=== PATIENT | male | born 1945 | race Caucasian/White ===

== ENCOUNTER 2022-02-21 19:51 | Observation (INO) ==
[2022-02-21] MEDS ORDERED: ONDANSETRON INJ 2 MG/ML 2 ML VIAL IV STA (20:09)
[2022-02-21] MEDS ORDERED: SODIUM CHLORIDE 0.9% 1000ML 500 ML IV ONE (20:09)
--- NOTE | 2022-02-21 20:18 | Emergency Department Note ---
History of Present Illness General Chief complaint: Fall Stated complaint: FALL, HIT HEAD, VOMITING Time Seen by Provider: 02/21/22 19:59 Source: patient and family ( who is at the bedside) Mode of arrival: ambulatory Limitations: no limitations History of Present Illness This patient comes in after having weakness and a fall. He has been having issues with weakness since he started chemo in August. They recently changed his agents and he has been doing a little bit better has had less nausea that Zofran seems to be doing better. He had recent PET scans which showed most aspects were improving. He was extremely fatigued all day and just was not feeling well he went outside and while walking in he fell on the stairs and hit his head this happened about an hour and a half ago he vomited afterwards. Denies a headache or neck pain denies injury to the chest abdomen or pelvis or back. No other injuries. His weakness has been diffuse and nonfocal. He has had chronic shortness of breath which is unchanged no blood or melena stool his last chemo was on Thursday he does have a port. No urinary symptoms. Home Medications Medication Instructions Recorded Confirmed Type metoprolol tartrate 25 mg tablet 25 mg PO BID tab 11/20/21 02/21/22 History ondansetron HCl 8 mg tablet 8 mg PO Q8H PRN 11/20/21 02/21/22 History oxycodone 5 mg tablet 5 mg PO .Q4-6H PRN tab 11/20/21 02/21/22 History bupropion HCl 150 mg 24 hr tablet, 150 mg PO QAM 11/26/21 02/21/22 History extended release enalapril maleate 5 mg tablet 5 mg PO BID 12/04/21 02/21/22 History (Vasotec) loperamide 2 mg capsule (Imodium 2 mg PO Q6H PRN 12/09/21 02/21/22 History A-D) atorvastatin 80 mg tablet 80 mg PO DAILY 02/21/22 02/21/22 History dexamethasone 4 mg tablet See Rx Instructions .ROUTE .COMPLEX 02/21/22 02/21/22 History escitalopram oxalate 10 mg tablet 10 mg PO DAILY 02/21/22 02/21/22 History metformin 1,000 mg tablet 1,000 mg PO DAILY 02/21/22 02/21/22 History Allergies Allergy/AdvReac Type Severity Reaction Status Date / Time No Known Drug Allergies Allergy Unknown Verified 02/21/22 20:40 Past Med/Surg History Medical History Actinic keratosis Adenomatous polyp Angioma CAD (coronary artery disease) s/p CABG x 3 approx 2014 in [place], does not follow with cardiology at this time per PAT RN records Depression Diabetes Erectile dysfunction Fatigue GERD (gastroesophageal reflux disease) Hearing difficulty History of nonmelanoma skin cancer Hyperlipidemia Hypertension Lentigines Metastatic squamous cell carcinoma Myocardial infarction HX 2014 Neoplasm of uncertain behavior of skin Seborrheic keratoses Smoker Stage 3 chronic kidney disease Stroke HX 2014 Surgical History H/O heart surgery Triple bypass with 3 stents- [facility] [place] -approx 2014 History of colonoscopy Port-A-Cath in place (12/04/21) Insertion of Access Port in Left Jugular Vein with Fluoroscopy(Left) - Kelechi Suarez DO, FACS 12/04/2021 S/P wisdom tooth extraction Family History Brother Cardiac arrest Father , 88yo Myocardial infarction Mother , 90yo Myocardial infarction Hypertension Daughter Cancer brain Brother No problems noted. Son No problems noted. Son No problems noted. Daughter Brain cancer Denies family history of Ovarian cancer Prostate cancer Breast cancer Colorectal cancer Social History Smoking Status: Never smoker Tobacco Type: Cigarettes Age Started Using Tobacco: 15; packs per day: 1; Years Smoked: 61; Cigarettes Per Day: 10 CIGS A DAY; Second Hand Exposure: No; Hx Alcohol Use: No Hx Substance Use: No Preferred Language: Vietnamese Communication Ability: Effective Visual Impairment: No Limitations Hearing Ability: Hard of Hearing Foot Tender Required: No Beliefs That Will Affect Care: None marital status: Current Living Situation: Spouse Current Living Situation Comment: Lives with his girlfriend? current occupational status: retired current occupation: Worked in [employer] How many Children do You have: 3 Other Information That Helps Us Care for You: No Feels Safe at Home: Yes Safety Concerns: Feels Safe At This Time Childhood Exposure to Second-Hand Smoke: Yes caffeine: Yes during the past year weight has: increased > 10 lbs Dental Care, Regularly: No Physical Activity Frequency: Does not Exercise Seatbelt Use: always Sunscreen Use: Yes Assistive Devices: Cane, Glasses and Walker Review of Systems A total of 10 systems reviewed and were otherwise negative Physical Exam Vital Signs Vital Signs - 24 hr 02/21/22 19:53 02/21/22 20:25 02/21/22 20:44 Temperature 36.6 C Temperature Source Temporal Artery Scan Pulse Rate 75 Pulse Rate [Apical] 90 Pulse Rhythm Regular Pulse Strength Normal Respiratory Rate 18 14 Respiratory Effort / Characteristics Non-Labored Spontaneous Respiratory Depth Normal Respiratory Pattern Regular Blood Pressure 90/55 L Blood Pressure [Right Arm] 112/65 Blood Pressure Mean 66 Blood Pressure Mean [Right Arm] 80 Blood Pressure Position Sitting Pulse Oximetry 94 97 96 Oxygen Delivery Method Room Air Room Air Room Air Sepsis Recent Fever Within 48 Hours No Sepsis New/Unexplained Change in Mental Status N/A Sepsis Action Taken by Nursing No Action Required 02/21/22 20:45 02/21/22 21:09 02/21/22 21:53 Temperature Temperature Source Pulse Rate Pulse Rate [Apical] 85 80 Pulse Rhythm Pulse Strength Respiratory Rate 17 18 Respiratory Effort / Characteristics Respiratory Depth Respiratory Pattern Blood Pressure Blood Pressure [Right Arm] 133/66 150/74 H Blood Pressure Mean Blood Pressure Mean [Right Arm] 88 99 Blood Pressure Position Pulse Oximetry 96 99 97 Oxygen Delivery Method Room Air Room Air Room Air Sepsis Recent Fever Within 48 Hours Sepsis New/Unexplained Change in Mental Status Sepsis Action Taken by Nursing General: Well developed well nourished chronically ill-appearing older male who appears in no acute distress, breathing comfortably on room air. Normal speech. No external signs of trauma. HEENT: Normal cephalic atraumatic. Pupils are equal round and reactive to light. Extraocular movements are intact. Oropharynx is pink with moist mucous membranes. No swelling of the mouth lips or tongue. Neck: Supple with a midline trachea. No meningeal signs or stiffness, no JVD or bruits. No Stridor. Chest: Clear to auscultation bilaterally. No wheezes or rhonchi. No increased work of breathing. Scar from previous surgery on right chest. Heart: Regular rate and rhythm without murmurs or gallops. Abdomen: Soft nontender, nondistended without rebound guarding or rigidity. Extremities: No cyanosis clubbing or edema. No calf tenderness or assymetry Spine/Back. Non tender to palpation. No CVA tenderness Skin: Good turgor without rashes. Neurologic exam: Cranial nerves two through 12 are intact. Motor and sensation are intact and symmetrical throughout. Course Administered Medications Lactated Ringer's (Lr) 1,000 mls @ 80 mls/hr IV .[id number] ROCKY Stop: 02/23/22 01:24 Last Admin: 02/22/22 01:13 Dose: 80 mls/hr Documented by: [id number] Discontinued Medications Sodium Chloride (Nss 1000ml) 500 mls @ 999 mls/hr IV .Q31M ONE Stop: 02/21/22 20:39 Last Infusion: 02/21/22 21:10 Dose: 0 mls/hr Documented by: [id number] Admin: 02/21/22 20:23 Dose: 999 mls/hr Documented by: [id number] Sodium Chloride (Nss) 500 mls @ 999 mls/hr IV .Q31M ONE Stop: 02/21/22 21:53 Last Infusion: 02/21/22 22:23 Dose: 0 mls/hr Documented by: [id number] Admin: 02/21/22 21:51 Dose: 999 mls/hr Documented by: [id number] Magnesium Sulfate/Dextrose (Magnesium Sulfate / D5w) 1 gm in 100 mls @ 100 mls/hr IV NOW STA Stop: 02/21/22 23:03 Last Infusion: 02/21/22 23:22 Dose: 0 mls/hr Documented by: [id number] Admin: 02/21/22 22:11 Dose: 100 mls/hr Documented by: [id number] Cefepime HCl (Maxipime) 2,000 mg in 20 mls @ 5 mls/min IV NOW STA; Protocol Stop: 02/21/22 22:15 Last Admin: 02/21/22 22:20 Dose: 5 mls/min Documented by: [id number] Ondansetron HCl (Ondansetron Inj 2 Mg/Ml 2 Ml Vial) 4 mg IV NOW STA Stop: 02/21/22 20:10 Last Admin: 02/21/22 20:22 Dose: 4 mg Documented by: [id number] Medical Decision Making Differential Diagnosis Head injury, intracranial hemorrhage, cervical spine injury, traumatic injuries, dehydration, electrolyte or metabolic abnormality, cancer related complication, sepsis, cardiac disease Medical Records Attestation: I reviewed the patient's medical records. Home Medications Current Medication List: was personally reviewed by me Laboratory Data Attestation: I reviewed the patient's lab results. Result diagrams: 02/21/22 20:31 02/21/22 20:31 Lab Results 02/21/22 02/21/22 02/21/22 Range/Units 20:30 20:31 20:31 WBC 2.55 L (4.8-10.8) K/uL RBC 2.88 L (4.7-6.1) M/uL Hgb 9.4 L (14.0-18.0) g/dL Hct 28.3 L (42-52) % MCV 98.3 (80-100) fL MCH 32.6 (25-34) pg MCHC 33.2 (32-36) g/dL RDW Std Deviation 72.9 H (36.4-46.3) fL RDW Coeff of Miriam 20.2 H (11.5-14.5) % Plt Count 104 L (130-400) K/uL MPV 10.3 (7.4-10.4) fL Immature Gran % (Auto) 0.4 % Neut % (Auto) 65.9 % Lymph % (Auto) 23.5 % Mccone % (Auto) 9.0 % Eos % (Auto) 1.2 % Baso % (Auto) 0.0 % Neut # (Auto) 1.68 (1.4-6.5) K/uL Lymph # (Auto) 0.60 L (1.2-3.4) K/uL Mccone # (Auto) 0.23 (0.11-0.59) K/uL Eos # (Auto) 0.03 (0-0.5) K/uL Baso # (Auto) 0.00 (0-0.2) K/uL Immature Gran # (Auto) 0.01 (0.00-0.02) K/uL Anisocytosis Present Tear Drop Cells 1+ Ovalocytes 1+ PT 10.9 (9.0-12.0) Seconds INR 1.0 (0.9-1.1) APTT 25.2 (21.0-31.0) Seconds PTT Ratio 0.9 Sodium (136-145) mmol/L Potassium (3.5-5.1) mmol/L Chloride (98-107) mmol/L Carbon Dioxide (21-32) mmol/L Anion Gap (3-11) BUN (6-23) mg/dl Creatinine (0.6-1.4) mg/dl Est Cr Clr Drug Dosing ml/min Est GFR ( Amer) ml/min Est GFR (Non-Af Amer) ml/min BUN/Creatinine Ratio (10-20) Glucose (70-99(Fasting)) mg/dl Lactate (0.4-2.0) mmol/L Calcium (8.5-10.1) mg/dl Magnesium (1.7-2.4) mg/dl Total Bilirubin (0.2-1.0) mg/dl AST (13-39) U/L ALT (7-52) U/L Alkaline Phosphatase (34-104) U/L Troponin I High Sens (0-20) pg/ml Total Protein (6.0-8.3) gm/dl Albumin (3.4-5.0) gm/dl Globulin (2.5-4.0) gm/dl Albumin/Globulin Ratio (0.9-2) SARS-CoV-2, RNA, NAAT NEGATIVE (NEGATIVE) 02/21/22 02/21/22 02/21/22 Range/Units 20:31 20:31 20:31 WBC (4.8-10.8) K/uL RBC (4.7-6.1) M/uL Hgb (14.0-18.0) g/dL Hct (42-52) % MCV (80-100) fL MCH (25-34) pg MCHC (32-36) g/dL RDW Std Deviation (36.4-46.3) fL RDW Coeff of Miriam (11.5-14.5) % Plt Count (130-400) K/uL MPV (7.4-10.4) fL Immature Gran % (Auto) % Neut % (Auto) % Lymph % (Auto) % Mccone % (Auto) % Eos % (Auto) % Baso % (Auto) % Neut # (Auto) (1.4-6.5) K/uL Lymph # (Auto) (1.2-3.4) K/uL Mccone # (Auto) (0.11-0.59) K/uL Eos # (Auto) (0-0.5) K/uL Baso # (Auto) (0-0.2) K/uL Immature Gran # (Auto) (0.00-0.02) K/uL Anisocytosis Tear Drop Cells Ovalocytes PT (9.0-12.0) Seconds INR (0.9-1.1) APTT (21.0-31.0) Seconds PTT Ratio Sodium 133 L (136-145) mmol/L Potassium 3.9 (3.5-5.1) mmol/L Chloride 99 (98-107) mmol/L Carbon Dioxide 26 (21-32) mmol/L Anion Gap 8 (3-11) BUN 20 (6-23) mg/dl Creatinine 1.04 (0.6-1.4) mg/dl Est Cr Clr Drug Dosing 70.0 ml/min Est GFR ( Amer) 79.9 ml/min Est GFR (Non-Af Amer) 68.9 ml/min BUN/Creatinine Ratio 19.2 (10-20) Glucose 110 H (70-99(Fasting)) mg/dl Lactate 3.1 H* (0.4-2.0) mmol/L Calcium 8.9 (8.5-10.1) mg/dl Magnesium 1.5 L (1.7-2.4) mg/dl Total Bilirubin 0.7 (0.2-1.0) mg/dl AST 20 (13-39) U/L ALT 26 (7-52) U/L Alkaline Phosphatase 110 H (34-104) U/L Troponin I High Sens 5.2 (0-20) pg/ml Total Protein 5.9 L (6.0-8.3) gm/dl Albumin 3.5 (3.4-5.0) gm/dl Globulin 2.4 L (2.5-4.0) gm/dl Albumin/Globulin Ratio 1.5 (0.9-2) SARS-CoV-2, RNA, NAAT (NEGATIVE) 02/21/22 Range/Units 22:15 WBC (4.8-10.8) K/uL RBC (4.7-6.1) M/uL Hgb (14.0-18.0) g/dL Hct (42-52) % MCV (80-100) fL MCH (25-34) pg MCHC (32-36) g/dL RDW Std Deviation (36.4-46.3) fL RDW Coeff of Miriam (11.5-14.5) % Plt Count (130-400) K/uL MPV (7.4-10.4) fL Immature Gran % (Auto) % Neut % (Auto) % Lymph % (Auto) % Mccone % (Auto) % Eos % (Auto) % Baso % (Auto) % Neut # (Auto) (1.4-6.5) K/uL Lymph # (Auto) (1.2-3.4) K/uL Mccone # (Auto) (0.11-0.59) K/uL Eos # (Auto) (0-0.5) K/uL Baso # (Auto) (0-0.2) K/uL Immature Gran # (Auto) (0.00-0.02) K/uL Anisocytosis Tear Drop Cells Ovalocytes PT (9.0-12.0) Seconds INR (0.9-1.1) APTT (21.0-31.0) Seconds PTT Ratio Sodium (136-145) mmol/L Potassium (3.5-5.1) mmol/L Chloride (98-107) mmol/L Carbon Dioxide (21-32) mmol/L Anion Gap (3-11) BUN (6-23) mg/dl Creatinine (0.6-1.4) mg/dl Est Cr Clr Drug Dosing ml/min Est GFR ( Amer) ml/min Est GFR (Non-Af Amer) ml/min BUN/Creatinine Ratio (10-20) Glucose (70-99(Fasting)) mg/dl Lactate 2.3 H* (0.4-2.0) mmol/L Calcium (8.5-10.1) mg/dl Magnesium (1.7-2.4) mg/dl Total Bilirubin (0.2-1.0) mg/dl AST (13-39) U/L ALT (7-52) U/L Alkaline Phosphatase (34-104) U/L Troponin I High Sens (0-20) pg/ml Total Protein (6.0-8.3) gm/dl Albumin (3.4-5.0) gm/dl Globulin (2.5-4.0) gm/dl Albumin/Globulin Ratio (0.9-2) SARS-CoV-2, RNA, NAAT (NEGATIVE) Imaging Data Attestation: I personally reviewed and interpreted this imaging study as follows: My Impression: Chest x-rayno acute infiltrate, failure, pneumothorax seen Radiologist's Impression: CT of the head- stat rad-no intracranial hemorrhage mass-effect or edema. No skull fracture. CT of the cervical spinestat radno traumatic injuries. Degenerative changes. Please refer to report. ECG Data Attestation: I personally reviewed and interpreted this ECG as follows: Indication: + weakness Rate (beats per minute): 95 Rhythm: + normal sinus ECG Intervals/blocks: + Normal QRS, + Normal QT and + Normal NE ECG Gordon: + Normal ECG ST segments: + Normal ST segments ECG Findings: no PACs or no PVCs Comparison ECG Date: from (11/25/21) Change: no significant change MDM Narrative This patient comes in as described above he has been having issues with chemo and was weak he fell today and hit his head and vomiting since then he was hypotensive in triage with a blood pressure 90. He denies any recent fever. I did order a sepsis type work-up they did access his port blood cultures were obtained given the fact that he hit his head I also did order a CT of the head and neck. Looking back through his chart he has had low platelets so head bleed is certainly of concern. He has no focal neurologic deficits. He was given 500 cc normal saline IV bolus initially as well as 4 of Zofran IV. He was reassessed frequently. He was placed on a front desk monitor. His blood pressure did respond to IV fluids and he received two 1 L normal saline boluses while he was here. I also cover him with broad-spectrum antibiotics with 2 g of cefepime IV given the fact that he was hypotensive as well as had a elevated lactate although he has no fever or any definite source of infection but he is certainly immunocompromised. CAT scan the head and neck do not show any acute abnormalities such as trauma. I think that he was likely dehydrated and from the chemo and fell I do think he would benefit from observation and further treatment in the hospital. I have consulted Dr. Lopez to see him in the ER for these measures. Continuous cardiac monitoring: An order was placed in the EMR for continuous cardiac monitoring. Upon my interpretation patient was noted to be in normal sinus rhythm with a rate of 85. Impression & Plan Weakness, Metastatic squamous cell carcinoma, Fall, Head injury, Acute dehydration, Lab test negative for COVID-19 virus Discharge Plan Visit Data Chief Complaint: Fall Stated Complaint: FALL, HIT HEAD, VOMITING ED Provider: Sunny Hendricks Discharge Problem: Weakness, Metastatic squamous cell carcinoma, Fall, Head injury, Acute dehydration, Lab test negative for COVID-19 virus Patient Disposition: Admitted As Inpatient Discharge Instructions Interventions: ED Discharge Assessment Last Done: 02/21/22 23:56
[2022-02-21 21:00] LABS: Partial Thromboplastin Ratio 0.9; Partial Thromboplastin Time 25.2 Seconds (21.0-31.0); Prothrombin Time 10.9 Seconds (9.0-12.0)
[2022-02-21 21:15] LABS: Albumin Globulin Ratio 1.5 (0.9-2); Albumin Level 3.5 gm/dl (3.4-5.0); BUN Creatinine Ratio 19.2 (10-20); Bilirubin,Total 0.7 mg/dl (0.2-1.0); Calcium 8.9 mg/dl (8.5-10.1); Est GFR (African American) 79.9 ml/min; Est GFR (Non-African American) 68.9 ml/min; Globulin 2.4 gm/dl (2.5-4.0); Magnesium 1.5 mg/dl (1.7-2.4); Potassium 3.9 mmol/L (3.5-5.1); Total Protein 5.9 gm/dl (6.0-8.3)
[2022-02-21] MEDS ORDERED: SODIUM CHLORIDE 0.9% 500 ML IV ONE (21:23)
[2022-02-21 21:31] LABS: Eosinophils # (auto) 0.03 K/uL (0-0.5); Eosinophils % (auto) 1.2 %; Hematocrit (blood only) 28.3 % (42-52); Hemoglobin 9.4 g/dL (14.0-18.0); Immature Granulocytes # (auto) 0.01 K/uL (0.00-0.02); Immature Granulocytes % (auto) 0.4 %; Lymphocytes % (auto) 23.5 %; Mean Corpuscular Hemoglobin 32.6 pg (25-34); Mean Corpuscular Hgb Conc 33.2 g/dL (32-36); Mean Corpuscular Volume 98.3 fL (80-100); Mean Platelet Volume 10.3 fL (7.4-10.4); Monocytes # (auto) 0.23 K/uL (0.11-0.59); Neutrophils # (auto) 1.68 K/uL (1.4-6.5); Neutrophils % (auto) 65.9 %; Platelet Count 104 K/uL (130-400); RDW Coefficient of Variation 20.2 % (11.5-14.5); RDW Standard Deviation 72.9 fL (36.4-46.3); Red Blood Count 2.88 M/uL (4.7-6.1); White Blood Count 2.55 K/uL (4.8-10.8)
[2022-02-21 21:56] LABS: Anisocytosis Present; Ovalocytes 1+; Tear Drop Cells 1+
[2022-02-21] MEDS ORDERED: MAGNESIUM SULFATE / D5W 1 GM/100 ML BAG IV STA (22:04)
[2022-02-21] MEDS ORDERED: CEFEPIME 2,000 MG/20 ML VIAL IV STA (22:12)
--- NOTE | 2022-02-21 23:08 | History & Physical Report ---
Date of Service February 21, 2022 Assessment & Plan (1) Fall: Plan: 76yo male with a history of HTN, HLD, CAD, CKD3, and metastatic squamous cell carcinoma who presented to the emergency department this evening after a fall at home. Fall, progressive weakness, deconditioning, malnutrition Patient with increasingly frequent falls over the past few weeks, and progressive weakness in the setting of malignancy and chemotherapy Falls likely secondary to hypotension secondary to poor PO intake as well as deconditioning and malnutrition secondary to malignancy, chemotherapy, and poor PO intake; however, other causes of syncope not excluded CT head without evidence of ICH or fracture, CT c-spine without evidence of fracture Received 2x NSS 500mL boluses in ED Lactate elevated to 3.1 on admission, likely secondary to hypotension, has started to trend downward Blood cultures pending Received a dose of cefepime in ED; will not continue this as patient is without evidence of infection Admit to med/surg telemetry Neuro checks q4h Echo ordered LR @ 80mL/hr x3 bags ordered PT/OT consulted Nutrition consult placed Case management consulted for assistance with home safety evaluation given frequent falls HTN Patient hypotensive (90/55) on arrival, which resolved after 2x NSS 500mL boluses Since then, BP has been normal to slightly elevated Continue home enalapril, metoprolol DM2 HbA1c 6.3% (05/2021); repeat A1c ordered Patient's home metformin held on admission Continue BSG checks, sliding-scale insulin, hypoglycemic protocol Hypomagnesemia Magnesium 1.5 on admission; mag sulfate IV 1g administered in ED Repeat mag level ordered for AM HLD, CAD Continue home atorvastatin CKD3 Creatinine at baseline on admission 1.04 (baseline 0.8-1.0) Trend daily BMP Metastatic squamous cell carcinoma Patient follows with Dr. Su and is on carbo/taxol weekly Depression Continue home escitalopram, bupropion FEN: heart healthy, DM2 diet, LR@80mL/hr x3 bags Code status: conditional (YES to chest compressions and invasive airway, NO to defibrillation) DVT ppx: lovenox Held home meds: metformin PT/OT: ordered Case management: consulted Dispo: med/surg telemetry (2) Diabetes: (3) Depression: (4) Hyperlipidemia: (5) Hypertension: (6) Metastatic squamous cell carcinoma: (7) Stage 3 chronic kidney disease: (8) CAD (coronary artery disease): History of Present Illness Primary Care Provider: Emily Ceja MD 76yo male with a history of HTN, HLD, CAD, CKD3, and metastatic squamous cell carcinoma who presented to the emergency department this evening after a fall at home. His is at bedside and provides additional history. This afternoon, the patient was in the backyard of their home with his and when trying to go back into the house he fell while walking up the stairs. reports that the patient landed on his side and also hit his head. Did not lose consciousness. About 15 minutes after the fall, patient began to have "projectile vomiting" which consisted of undigested food. The vomiting was intermittent for approximately 15 minutes; he was given Zofran ODT from his prior to arrival. There was no blood or bile in the emesis. Patient denies CP, change in dyspnea from baseline, change in abdominal pain from baseline. He denies current nausea, headache, or pain. Denies CP, change in dyspnea from baseline, change in abdominal pain from baseline. No current nausea or headache. It is noted that the patient has had poor po intake over the past few days. He does admit to progressive weakness over the past few weeks. Patient was started on chemotherapy a few months ago; he is followed by Dr. Mancia and was last seen by him about 1.5 months ago (next appointment scheduled in about 1 week). While in the ED, patient had a head CT that was negative for acute bleed or fracture. Allergies Allergy/AdvReac Type Severity Reaction Status Date / Time No Known Drug Allergies Allergy Unknown Verified 02/21/22 20:40 Home Medications Medication Instructions Recorded Confirmed Type metoprolol tartrate 25 mg tablet 25 mg PO BID tab 11/20/21 02/21/22 History ondansetron HCl 8 mg tablet 8 mg PO Q8H PRN 11/20/21 02/21/22 History oxycodone 5 mg tablet 5 mg PO .Q4-6H PRN tab 11/20/21 02/21/22 History bupropion HCl 150 mg 24 hr tablet, 150 mg PO QAM 11/26/21 02/21/22 History extended release enalapril maleate 5 mg tablet 5 mg PO BID 12/04/21 02/21/22 History (Vasotec) loperamide 2 mg capsule (Imodium 2 mg PO Q6H PRN 12/09/21 02/21/22 History A-D) atorvastatin 80 mg tablet 80 mg PO DAILY 02/21/22 02/21/22 History dexamethasone 4 mg tablet See Rx Instructions .ROUTE .COMPLEX 02/21/22 02/21/22 History escitalopram oxalate 10 mg tablet 10 mg PO DAILY 02/21/22 02/21/22 History metformin 1,000 mg tablet 1,000 mg PO DAILY 02/21/22 02/21/22 History Past Med/Surg History Medical History Actinic keratosis Adenomatous polyp Angioma CAD (coronary artery disease) s/p CABG x 3 approx 2014 in [place], does not follow with cardiology at this time per PAT RN records Depression Diabetes Erectile dysfunction Fatigue GERD (gastroesophageal reflux disease) Hearing difficulty History of nonmelanoma skin cancer Hyperlipidemia Hypertension Lentigines Metastatic squamous cell carcinoma Myocardial infarction HX 2014 Neoplasm of uncertain behavior of skin Seborrheic keratoses Smoker Stage 3 chronic kidney disease Stroke HX 2015 Surgical History H/O heart surgery Triple bypass with 3 stents- [facility] [place] -approx 2014 History of colonoscopy Port-A-Cath in place (12/04/21) Insertion of Access Port in Left Jugular Vein with Fluoroscopy(Left) - Kelechi Suarez DO, FACS 12/04/2021 S/P wisdom tooth extraction Family History Brother Cardiac arrest Father , 88yo Myocardial infarction Mother , 90yo Myocardial infarction Hypertension Daughter Cancer brain Brother No problems noted. Son No problems noted. Son No problems noted. Daughter Brain cancer Denies family history of Ovarian cancer Prostate cancer Breast cancer Colorectal cancer Social History Smoking Status: Never smoker Tobacco Type: Cigarettes Age Started Using Tobacco: 15; packs per day: 1; Years Smoked: 61; Cigarettes Per Day: 10 CIGS A DAY; Second Hand Exposure: No; Hx Alcohol Use: No Hx Substance Use: No Preferred Language: Mongolian Communication Ability: Effective Visual Impairment: No Limitations Hearing Ability: Hard of Hearing Statistical Secretary Required: No Beliefs That Will Affect Care: None marital status: Current Living Situation: Spouse Current Living Situation Comment: Lives with his girlfriend? current occupational status: retired current occupation: Worked in [employer] How many Children do You have: 3 Other Information That Helps Us Care for You: No Feels Safe at Home: Yes Safety Concerns: Feels Safe At This Time Childhood Exposure to Second-Hand Smoke: Yes caffeine: Yes during the past year weight has: increased > 10 lbs Dental Care, Regularly: No Physical Activity Frequency: Does not Exercise Seatbelt Use: always Sunscreen Use: Yes Assistive Devices: Cane, Glasses and Walker Physical Exam Physical Exam: Constitutional: tired-appearing, no acute distress, laying in hospital bed HEENT: normocephalic atraumatic, no bruising on head appreciated, mucous membranes slightly dry CV: regular rhythm, no murmur appreciated, extremities well-perfused, no LE edema Resp: CTABL, no wheezes/rales/rhonchi appreciated, no increased work of breathing GI: soft, nondistended, nontender, BS normoactive MSK: no gross deformities appreciated Skin: ulcerated lesion on left mid-back without purulence or drainage, covered bandage, bandage CDI Neuro: alert, oriented, no focal neurologic deficit appreciated, CN2-12 grossly intact, strength 5/5 in UE and LE bilaterally Psych: cooperative, pleasant, appropriate rate/volume/quantity of speech Results & Data Results & Data ([facility]) Vital Signs (Past 12 Hours) Vital Signs Temp Pulse Pulse Resp BP BP Pulse Ox 02/21/22 21:53 80 18 150/74 H 97 02/21/22 21:09 85 17 133/66 99 02/21/22 20:45 96 02/21/22 20:44 90 14 112/65 96 02/21/22 20:25 97 02/21/22 19:53 36.6 C 75 18 90/55 L 94 Supervising Physician Co-Signing Physician Notes Patient seen and examined, chart reviewed, case discussed with Dr. Patel and agree with the assessment and plan as documented above. In brief, patient is a 76-year-old male with history of hypertension, hyperlipidemia, coronary artery disease, CKD and metastatic squamous cell carcinoma presently on chemotherapy with carboplatin/Taxol presenting after a fall at home. Patient has had progressive functional decline as well as weakness and balance problems. This evening he fell walking up the stairs. He states that he did hit his head. He did not lose consciousness. He denies chest pain, palpitations, dizziness, incontinence or seizure activity preceding or following the fall. He did have projectile vomiting immediately following the fall but has not had vomiting since. Presently he has no complaints and feels back to baseline. Hypotensive on arrival at 90/55 which resolved after liter of normal saline On physical exam patient is afebrile, mildly hypertensive at 160/79 otherwise hemodynamically stable. Breathing comfortably with adequate saturation on room air. He does appear fatigued Skinlarge ulcerated lesion on left mid back without purulence or drainage. Bandage intact HEENTnormocephalic/atraumatic, pupils equal round and reactive to light, tongue is midline, extraocular muscles are intact, mucous membranes dry, no C-spine tenderness or deformity Heart+ S1, S2, regular, no murmur/rub/gallops Lungsclear to auscultation without rales/rhonchi or wheezes Abdomenpositive bowel sounds, soft, nontender, nondistended Extremitieswarm, well-perfused Labs and images reviewed, significant for pancytopenia which is chronic. No n eutropenia, platelets = 104 Sodium = 133, mag = 1.5, lactate = 2.3 CT imaging of the head and C-spine without acute injury. Assessment/plan: 76-year-old male with hypertension, hyperlipidemia, CAD, CKD and metastatic squamous cell carcinoma presently on chemotherapy with carbo/Taxol presenting with progressive weakness and functional decline. Multiple falls at home over the last several weeks. Fall today resulting in head trauma. Most likely secondary to deconditioning as well as some mild dehydration. Telemetry monitoring Neurochecks Gentle IV fluids PT/OT -remainder of plan as above Resident Activity Tracking Resident Involvement: Resident Care Provided Care Provided: Adult [facility] Medicine
[2022-02-22] MEDS ORDERED: ONDANSETRON INJ 2 MG/ML 2 ML VIAL IV PRN (00:25)
[2022-02-22] MEDS ORDERED: oxyCODONE HCL IR 5 MG TAB (IMMEDIATE RELEASE) PO PRN (00:25)
[2022-02-22] MEDS ORDERED: LOPERAMIDE HCL 2 MG CAP PO PRN (00:25)
[2022-02-22] MEDS ORDERED: POLYETHYLENE (MIRALAX) 17 GM PACK PO PRN (00:25)
[2022-02-22] MEDS ORDERED: dexAMETHasone 4 MG TAB PO SCH (00:25)
[2022-02-22] MEDS ORDERED: ONDANSETRON 4 MG OD TAB PO PRN (00:25)
[2022-02-22] MEDS ORDERED: ACETAMINOPHEN 325 MG TAB PO PRN (00:25)
[2022-02-22] MEDS ORDERED: GLUCAGON FOR INJ 1 MG VIAL SQ PRN (00:46)
[2022-02-22] MEDS ORDERED: DEXTROSE 50% 50 ML SYRINGE IV PRN (00:46)
[2022-02-22] MEDS ORDERED: CARBOHYDRATES FOR HYPOGLYCEMIA PO PRN (00:46)
[2022-02-22] MEDS ORDERED: GLUCOSE 10 TABS/TUBE PO PRN (00:46)
[2022-02-22] MEDS ORDERED: GLUCOSE 40% GEL 15 GM TUBE PO PRN (00:46)
[2022-02-22] MEDS: LACTATED RINGER'S 1,000 ML IV SCH ×2 (01:13→13:15)
--- NOTE | 2022-02-22 01:20 | Billing Data ---
Date of Service February 21, 2022 Coding Level of Care Code INT OBSERVATION CARE 70M LVL 3
[2022-02-22] MEDS ORDERED: HEPARIN 100 UNIT/ML 5ML FLUSH FLUSH PRN (01:23)
[2022-02-22 06:30] LABS: Hematocrit (blood only) 25.6 % (42-52); Hemoglobin 8.6 g/dL (14.0-18.0); Mean Corpuscular Hemoglobin 33.1 pg (25-34); Mean Corpuscular Hgb Conc 33.6 g/dL (32-36); Mean Corpuscular Volume 98.5 fL (80-100); RDW Coefficient of Variation 19.9 % (11.5-14.5); RDW Standard Deviation 71.2 fL (36.4-46.3); White Blood Count 1.77 K/uL (4.8-10.8)
[2022-02-22 06:46] LABS: Mean Platelet Volume 9.5 fL (7.4-10.4); Platelet Count 81 K/uL (130-400)
[2022-02-22 06:56] LABS: Eosinophils # (auto) 0.02 K/uL (0-0.5); Eosinophils % (auto) 1.1 %; Lymphocytes # (auto) 0.59 K/uL (1.2-3.4); Lymphocytes % (auto) 33.3 %; Monocytes # (auto) 0.15 K/uL (0.11-0.59); Monocytes % (auto) 8.5 %; Neutrophils # (auto) 1.01 K/uL (1.4-6.5); Neutrophils % (auto) 57.1 %; Ovalocytes 1+
[2022-02-22 07:06] LABS: Albumin Globulin Ratio 1.5 (0.9-2); Albumin Level 3.2 gm/dl (3.4-5.0); BUN Creatinine Ratio 19.2 (10-20); Bilirubin,Total 0.7 mg/dl (0.2-1.0); Calcium 8.4 mg/dl (8.5-10.1); Creatinine Clr Calc Pharmacy 84.5 ml/min; Est GFR (African American) 100.9 ml/min; Est GFR (Non-African American) 87.1 ml/min; Globulin 2.1 gm/dl (2.5-4.0); Potassium 3.9 mmol/L (3.5-5.1); Total Protein 5.3 gm/dl (6.0-8.3)
[2022-02-22 07:21] LABS: Appearance Urine Clear (Clear); Bilirubin Urine Negative (Negative); Blood Urine Negative (Negative); Color Urine Yellow; Glucose Urine UA Negative (Negative); Ketones Urine Negative (Negative); Leukocyte Esterase Urine Negative (Negative); Nitrite Urine Negative (Negative); Protein Urine Negative (Negative); Specific Gravity Urine 1.021 (1.000-1.030); Urobilinogen Urine Negative (Negative); pH Urine 7.5 (4.5-7.5)
--- NOTE | 2022-02-22 08:13 | CT Scan Report ---
HEAD CT NONCONTRAST CT DOSE: 1089.24 mGy.cm HISTORY: fall, hit head, hx of cancer' TECHNIQUE: Multiaxial CT images of the head were performed without the use of intravenous contrast. A utomated exposure control was utilized for this study. A dose lowering technique was utilized adheri ng to the principles of ALARA. Comparison: Brain MRI 10/31/2021. Findings: The paranasal sinuses and mastoid air cells are clear. The calvarium and skull base are int act. There is no mass, hematoma, midline shift, acute infarct. White matter hypodensity is nonspecifi c but suggestive of microvascular ischemic change. The ventricles and sulci demonstrate mild age-rela baldomero involutional changes. Old cerebellar infarcts are again noted. Impression: No significant change compared to the prior study. No acute intracranial abnormality. ACT 112: Negative or not required by law. Electronically signed by: Alex Brown M.D. 02/22/2022 8:12 AM
[2022-02-22] MEDS: ESCITALOPRAM OXALATE 10 MG TAB PO SCH (08:34)
[2022-02-22] MEDS: buPROPion XL 150 MG TABCR PO SCH (08:34)
[2022-02-22] MEDS: ENOXAPARIN INJ 40 MG/0.4 ML SYR SQ SCH (08:34)
[2022-02-22] MEDS: METOPROLOL TARTRATE 25 MG TAB PO SCH (08:34)
[2022-02-22] MEDS: ATORVASTATIN 40 MG TAB PO SCH (08:35)
[2022-02-22] MEDS: INSULIN ASPART PER UNIT SC SCH ×4 (08:36→20:57)
[2022-02-22 08:37] LABS: Estimated Average Glucose 117 mg/dl; Hemoglobin A1C 5.7 % (4.5-5.6)
--- NOTE | 2022-02-22 08:51 | CT Scan Report ---
CERVICAL SPINE CT CT DOSE: HISTORY: fall TECHNIQUE: Multiaxial CT images of the cervical spine were performed and reformatted in the sagittal and coronal plane without the use of contrast. A dose lowering technique was utilized adhering to th e principles of ALARA. COMPARISON: None. FINDINGS: No fractures. No subluxation. Prevertebral soft tissues and the C1-C2 interval are intact. No pneumothorax. Mild to moderate degenerative changes. Partially visualized left jugular catheter. IMPRESSION: No fractures within the cervical spine. ACT 112: Negative or not required by law. Electronically signed by: Alex Brown M.D. 02/22/2022 8:50 AM
[2022-02-22] MEDS ORDERED: metFORMIN HCL 500 MG TAB PO SCH (09:00)
[2022-02-22] MEDS ORDERED: ENALAPRIL MALEATE 5 MG TAB PO SCH (09:00)
--- NOTE | 2022-02-22 10:53 | XRay Report ---
XR chest 1V portable HISTORY: SEPSIS COMPARISON: Chest 12/04/2021. FINDINGS: No pneumothorax. No pleural effusions. There are low lung volumes. A few right basilar line ar densities favor subsegmental atelectasis. Otherwise, no focal lung consolidations to suggest pneum onia. No evidence for pulmonary edema. The cardiac silhouette remains borderline enlarged. There is a left jugular Port-A-Cath which terminates in the SVC. IMPRESSION: No acute process. ACT 112: Negative or not required by law. Electronically signed by: Alex Brown M.D. 02/22/2022 10:52 AM
--- NOTE | 2022-02-22 11:38 | Electrocardiogram Report ---
Test Reason : Blood Pressure : / mmHG Vent. Rate : 095 BPM Atrial Rate : 095 BPM P-R Int : 140 ms QRS Dur : 078 ms QT Int : 372 ms P-R-T Axes : 073 003 053 degrees QTc Int : 467 ms Normal sinus rhythm Nonspecific ST and T wave abnormality Abnormal ECG When compared with ECG of 25-NOV-2021 14:38, Premature atrial complexes are no longer Present Confirmed by Zackary Pichardo ([id number]) on 02/22/2022 11:38:11 AM Referred By: REFERRED SELF Confirmed By:Zackary Pichardo
--- NOTE | 2022-02-22 11:48 | Electrocardiogram Report ---
Test Reason : Blood Pressure : / mmHG Vent. Rate : 074 BPM Atrial Rate : 074 BPM P-R Int : 142 ms QRS Dur : 082 ms QT Int : 384 ms P-R-T Axes : 071 -06 044 degrees QTc Int : 426 ms Normal sinus rhythm Cannot rule out Inferior infarct (cited on or before 21-FEB-2022) Abnormal ECG When compared with ECG of 21-FEB-2022 20:21, (unconfirmed) No significant change was found Confirmed by Zackary Pichardo ([id number]) on 02/22/2022 11:47:55 AM Referred By: REFERRED SELF Confirmed By:Zackary Pichardo
[2022-02-22] MEDS: D5W AND NSS 1,000 ML IV SCH ×2 (12:59→18:22)
--- NOTE | 2022-02-22 13:20 | XCELERA ---
[id number]___[id number]
[2022-02-22] MEDS: NICOTINE 14 MG/24 HR PATCH TD SCH (16:59)
--- NOTE | 2022-02-22 17:57 | Hospitalist Progress Note ---
Date of Service February 22, 2022 Assessment & Plan (1) Fall: Plan: 76yo male with a history of HTN, HLD, CAD, CKD3, and metastatic squamous cell carcinoma who presented to the emergency department this evening after a fall at home. Fall, progressive weakness, deconditioning, malnutrition in the setting of malignancy status post chemo -The patient is orthostatic systolic blood pressure drops from 140s to 100, this could be secondary to side effects chemotherapy versus dehydration versus other -Patient does not have any paresthesia or muscle force of both lower extremities are intact -If after addressing the orthostatic hypotension still patient is not able to ambulate we will swab for other causes -Continue IV fluid Patient with increasingly frequent falls over the past few weeks, and progressive weakness in the setting of malignancy and chemotherapy Falls likely secondary to hypotension secondary to poor PO intake as well as deconditioning and malnutrition secondary to malignancy, chemotherapy, and poor PO intake; however, other causes of syncope not excluded CT head without evidence of ICH or fracture, CT c-spine without evidence of fracture Received 2x NSS 500mL bolu Lactate elevated to 3.1 on admission, likely secondary to hypotension, has started to trend downward PT/OT consulted Nutrition consult placed Case management consulted for assistance with home safety evaluation given frequent falls HTN Patient hypotensive (90/55) on arrival, which resolved after 2x NSS 500mL boluses Since then, BP has been normal to slightly elevated Continue home enalapril, metoprolol DM2 HbA1c 6.3% (05/2021); repeat A1c ordered Patient's home metformin held on admission Continue BSG checks, sliding-scale insulin, hypoglycemic protocol Hypomagnesemia Magnesium 1.5 on admission; mag sulfate IV 1g administered in ED Repeat mag level ordered for AM HLD, CAD Continue home atorvastatin CKD3 Creatinine at baseline on admission 1.04 (baseline 0.8-1.0) Trend daily BMP Metastatic squamous cell carcinoma Patient follows with Dr. Su and is on carbo/taxol weekly Depression Continue home escitalopram, bupropion FEN: heart healthy, DM2 diet, LR@80mL/hr x3 bags Code status: conditional (YES to chest compressions and invasive airway, NO to defibrillation) DVT ppx: lovenox Held home meds: metformin PT/OT: ordered Case management: consulted Dispo: med/surg telemetry (2) Diabetes: (3) Depression: (4) Hyperlipidemia: (5) Hypertension: (6) Metastatic squamous cell carcinoma: (7) Stage 3 chronic kidney disease: (8) CAD (coronary artery disease): Admission and Anticipated Discharge Date Admission Date: February 22, 2022 Subjective Patient barely can stand, came to the hospital recurrent fall is orthostatic with systolic blood pressure drops from 140 in supine position 200 and standing Review of Systems Review of Systems: General: No malaise no weakness Neck: No tenderness no pain HEENT: No eye discharge no ear discharge Chest: No chest pain, no palpitation GI: Not distended, no nausea no vomiting Extremities: No edema no tenderness Neurology: No headache no weakness Psychiatric: No depression no anxiety Physical Exam Physical Exam: General: Alert oriented x3, well-nourished Neck: No lymphadenopathy, supple Respiratory: Lungs are clear to auscultation no chest abnormality Cardiovascular: Regular rate and rhythm no murmur no gallop vegetation Abdomen: Soft bowel sounds active Extremities: No edema no tenderness Skin: No jaundice no rash Neurology: Alert oriented x3 no acute distress moves all extremities Psychiatry mood and affect appropriate Results & Data Results & Data ([facility]) Vital Signs (Past 12 Hours) Vital Signs Temp Pulse Pulse Resp BP BP Pulse Ox 02/22/22 14:40 36.5 C 62 18 150/66 H 98 02/22/22 14:21 60 02/22/22 13:00 36.9 C 95 H 20 160/73 H 93 02/22/22 12:59 65 02/22/22 10:53 36.9 C 78 20 146/69 H 97 02/22/22 08:00 37.0 C 100 H 18 127/76 97 02/22/22 07:34 72 PG Care Time/CCT Total # of Minutes Spent Total Time Spent with Patient: Total time spent is greater than 50% in coordination of care (as documented) at patient's floor/unit and/or counseling patient: Coding Level of Care Code 79946 Subseq Hosp Care Lvl 2 Diagnoses Fall W19.XXXA Encounter type: initial encounter Diabetes E11.9 Depression F32.A Hyperlipidemia E78.5 Hypertension I10 Metastatic squamous cell carcinoma C79.9 Stage 3 chronic kidney disease N18.30 CAD (coronary artery disease) I25.10 (1) Fall Encounter type: initial encounter Qualified Code(s): W19.XXXA - Unspecified fall, initial encounter
[2022-02-22] MEDS: SODIUM CHLORIDE 0.9% 500 ML IV SCH ×2 (18:21→22:28)
[2022-02-22] MEDS ORDERED: ENALAPRILAT 1.25 MG/ML 1 ML VIAL IV SCH (21:00)
[2022-02-22] MEDS: ENALAPRILAT IV SCH (21:06)
[2022-02-22] MEDS: DEXTROSE 5% IV SCH (21:06)
[2022-02-23] MEDS: SODIUM CHLORIDE 0.9% 1000ML 1,000 ML IV SCH ×3 (04:46→21:09)
[2022-02-23] MEDS: SODIUM CHLORIDE 0.9% 500 ML IV SCH (04:46)
[2022-02-23] MEDS: INSULIN ASPART PER UNIT SC SCH ×4 (08:23→20:32)
[2022-02-23] MEDS: DEXTROSE 5% IV SCH (08:25)
[2022-02-23] MEDS: ENALAPRILAT IV SCH (08:25)
[2022-02-23] MEDS: NICOTINE 14 MG/24 HR PATCH TD SCH (08:25)
[2022-02-23] MEDS: ENOXAPARIN INJ 40 MG/0.4 ML SYR SQ SCH (09:24)
[2022-02-23] MEDS: ESCITALOPRAM OXALATE 10 MG TAB PO SCH (09:25)
[2022-02-23] MEDS: ATORVASTATIN 40 MG TAB PO SCH (09:25)
[2022-02-23] MEDS: buPROPion XL 150 MG TABCR PO SCH (09:25)
[2022-02-23] MEDS: MIDODRINE HCL 2.5 MG TAB PO SCH ×2 (11:32→17:16)
--- NOTE | 2022-02-23 14:59 | Magnetic Resonance Report ---
Brain MRI WITHOUT CONTRAST HISTORY: rule out metastasis , stroke , recurrent falls TECHNIQUE: Multiplanar multisequence MRI of the brain was performed without the use of contrast. COMPARISON STUDY: Brain MRI 10/31/2021. FINDINGS: Mild motion artifact. There are no areas of restricted diffusion to suggest acute infarctio n. The midline structures are intact. The paranasal sinuses are clear. The mastoid air cells are victorino r. Demonstrate mild age-related involutional changes. Focal area of encephalomalacia with adjacent T2 signal abnormality within the left cerebellar hemisphere remains unchanged and likely represents old infarcts. Scattered foci of T2 hyperintensity within the periventricular white matter remains unchan ged and likely represents moderate microvascular ischemic changes. There is also a punctate old lacun ar infarction within the alvin. There is no hematoma or midline shift. The major vascular flow-voids a t the skull base are well maintained. Suboptimal evaluation for intracranial metastases due to the la ck of intravenous contrast. However, no definite intraparenchymal lesions identified. Small amount of hemosiderin staining again noted within the left inferior cerebellar hemisphere. Absent flow void wi thin the right distal vertebral artery which is likely chronic. Punctate old lacunar infarcts again n oted within the right cerebellar hemisphere. IMPRESSION: 1. No significant change compared to the prior study. No acute intracranial abnormality. 2. Suboptimal evaluation for intracranial metastases due to the lack of intravenous contrast. However , no intraparenchymal lesions identified ACT 112: Negative or not required by law. Electronically signed by: Alex Brown M.D. 02/23/2022 2:57 PM
--- NOTE | 2022-02-23 15:18 | Magnetic Resonance Report ---
MRI OF THE LUMBAR SPINE WITHOUT CONTRAST CLINICAL HISTORY: Recurrent falls. Evaluate for spinal canal stenosis. COMPARISON STUDY: PET/CT February 05, 2022. TECHNIQUE: Utilizing a 1.5 Amina magnet and dedicated coil, multiplanar, multiecho imaging of the yamilet ar spine was performed without IV contrast. FINDINGS: For purposes of numbering on this exam, the L5-S1 disc space is assigned to axial image [id number]. Alignme nt of the lumbar spine is anatomic. Moderate compression fractures of T12 and L1 are unchanged since earlier PET/CT of July 24, 2021. Although increased T2 signal is noted on the STIR sequence, the se fractures are chronic There is 60% loss of vertebral body height of L1 and 50% loss of vertebral b andrea height of T12. There is minimal retropulsion. This does not result in significant central canal s tenosis. Mild compression of T11 and L2 are also unchanged. No acute lumbar spine fracture is present . A 5 mm T1 hypointense lesion within the L2 vertebral body is indeterminate. No intracanalicular mas s or fluid collection is present. Paravertebral soft tissues are unremarkable. Conus terminates at th e L1 level. L1-2: The central canal and neural foramen are patent. L2-3: There is facet arthrosis with mild disc bulge. There is mild narrowing of the central canal and lateral recesses. Neural foramen are patent. L3-4: There is moderate facet arthrosis with disc bulge. There is moderate narrowing of the central c anal and lateral recesses with mild narrowing of both neural foramen. Patent AP diameter of the canal is 5.2 mm. L4-5: There is severe facet arthrosis. There is disc bulge. Ligamentous hypertrophy is noted. There i s moderate to severe central canal stenosis. Patent AP diameter of the canal is 4.6 mm. There is also severe narrowing of both lateral recesses. There is mild narrowing of both neural foramen. L5-S1: Moderate facet arthrosis is present. There is disc space narrowing with disc bulge. Central ca nal is patent. There is mild narrowing of the lateral recesses and left neural foramen. Right neural foramen is patent. IMPRESSION: 1. Multiple old lower thoracic and upper lumbar spine compression fractures which are similar to PET/ CT of July 24, 2021. No acute lumbar spine fracture. 2. Moderate to severe central canal stenosis at L4-L5 due to facet arthrosis, ligamentous hypertrophy and disc bulge. Moderate central canal stenosis at L3-L4. 3. Severe multilevel facet arthrosis and moderate multilevel degenerative disc disease within the lum bar spine. ACT 112: Negative or not required by law. Electronically signed by: Juancho Gomez M.D. 02/23/2022 3:16 PM
--- NOTE | 2022-02-23 16:15 | Hospitalist Progress Note ---
Date of Service February 23, 2022 Assessment & Plan (1) Fall: Plan: 76yo male with a history of HTN, HLD, CAD, CKD3, and metastatic squamous cell carcinoma who presented to the emergency department this evening after a fall at home. Fall, progressive weakness, deconditioning, malnutrition in the setting of malignancy status post chemo Patient with increasingly frequent falls over the past few weeks, and progressive weakness in the setting of malignancy and chemotherapy CT head without evidence of ICH or fracture, CT c-spine without evidence of fracture Received 2x NSS 500mL bolu Lactate elevated to 3.1 on admission, likely secondary to hypotension, has started to trend downward Falls likely secondary to hypotension secondary to poor PO intake as well as deconditioning and malnutrition secondary to malignancy, chemotherapy, and poor PO intake; however, other causes of syncope not excluded -The patient presented with orthostatic hypotension his blood pressure dropped from 140 to 100 -He was started on IV fluid still patient is orthostatic Added midodrine today Proceed with MRI of the brain to rule out metastatic disease Proceed with MRI of LS spine to rule out spinal cord stenosis I spoke with his daughter stated since patient is starting chemotherapy/radiation therapy he started having recurrent falls however poor appetite We will contact his primary oncologist /Sharlene on Thursday to see if his chemo radiation therapy can contribute to his symptoms -Patient does not have any paresthesia or muscle force of both lower extremities are intact - -Continue IV fluid HTN Patient hypotensive (90/55) on arrival, which resolved after 2x NSS 500mL boluses Since then, BP has been normal to slightly elevated Continue home enalapril, metoprolol DM2 HbA1c 6.3% (05/2021); repeat A1c ordered Patient's home metformin held on admission Continue BSG checks, sliding-scale insulin, hypoglycemic protocol Hypomagnesemia Magnesium 1.5 on admission; mag sulfate IV 1g administered in ED Repeat mag level ordered for AM HLD, CAD Continue home atorvastatin CKD3 Creatinine at baseline on admission 1.04 (baseline 0.8-1.0) Trend daily BMP Metastatic squamous cell carcinoma Patient follows with Dr. Su and is on carbo/taxol weekly Depression Continue home escitalopram, bupropion FEN: heart healthy, DM2 diet, LR@80mL/hr x3 bags Code status: conditional (YES to chest compressions and invasive airway, NO to defibrillation) DVT ppx: lovenox Held home meds: metformin PT/OT: ordered Case management: consulted Dispo: med/surg telemetry (2) Diabetes: (3) Depression: (4) Hyperlipidemia: (5) Hypertension: (6) Metastatic squamous cell carcinoma: (7) Stage 3 chronic kidney disease: (8) CAD (coronary artery disease): Admission and Anticipated Discharge Date Admission Date: February 22, 2022 Subjective Patient barely can stand, came to the hospital recurrent fall is orthostatic with systolic blood pressure drops from 140 in supine position 200 and standing Review of Systems Review of Systems: General: No malaise no weakness Neck: No tenderness no pain HEENT: No eye discharge no ear discharge Chest: No chest pain, no palpitation GI: Not distended, no nausea no vomiting Extremities: No edema no tenderness Neurology: No headache no weakness Psychiatric: No depression no anxiety Physical Exam Physical Exam: General: Alert oriented x3, well-nourished Neck: No lymphadenopathy, supple Respiratory: Lungs are clear to auscultation no chest abnormality Cardiovascular: Regular rate and rhythm no murmur no gallop vegetation Abdomen: Soft bowel sounds active Extremities: No edema no tenderness Skin: No jaundice no rash Neurology: Alert oriented x3 no acute distress moves all extremities Psychiatry mood and affect appropriate Results & Data Results & Data ([facility]) Vital Signs (Past 12 Hours) Vital Signs Temp Pulse Resp BP BP Pulse Ox 02/23/22 15:42 36.5 C 72 20 157/80 H 98 02/23/22 10:35 84 18 103/61 97 02/23/22 10:34 83 18 102/57 L 98 02/23/22 10:33 64 18 136/50 L 99 02/23/22 07:52 36.7 C 85 20 121/66 98 PG Care Time/CCT Total # of Minutes Spent Total Time Spent with Patient: Total time spent is greater than 50% in coordination of care (as documented) at patient's floor/unit and/or counseling patient: Coding Level of Care Code 54661 Subseq Obs Care Lvl 3 Diagnoses Fall W19.XXXA Encounter type: initial encounter Diabetes E11.9 Depression F32.A Hyperlipidemia E78.5 Hypertension I10 Metastatic squamous cell carcinoma C79.9 Stage 3 chronic kidney disease N18.30 CAD (coronary artery disease) I25.10 (1) Fall Encounter type: initial encounter Qualified Code(s): W19.XXXA - Unspecified fall, initial encounter
[2022-02-24] MEDS: SODIUM CHLORIDE 0.9% 1000ML 1,000 ML IV SCH (05:10)
[2022-02-24] MEDS: INSULIN ASPART PER UNIT SC SCH ×4 (08:38→21:38)
[2022-02-24] MEDS: NICOTINE 14 MG/24 HR PATCH TD SCH (08:39)
[2022-02-24] MEDS: ENOXAPARIN INJ 40 MG/0.4 ML SYR SQ SCH (08:41)
[2022-02-24] MEDS: ATORVASTATIN 40 MG TAB PO SCH (08:41)
[2022-02-24] MEDS: buPROPion XL 150 MG TABCR PO SCH (08:41)
[2022-02-24] MEDS: ESCITALOPRAM OXALATE 10 MG TAB PO SCH (08:41)
[2022-02-24] MEDS: MIDODRINE HCL 2.5 MG TAB PO SCH ×3 (08:41→17:08)
--- NOTE | 2022-02-24 17:47 | Hospitalist Progress Note ---
Date of Service February 24, 2022 Assessment & Plan (1) Fall: Plan: 76yo male with a history of HTN, HLD, CAD, CKD3, and metastatic squamous cell carcinoma who presented to the emergency department this evening after a fall at home. Fall, progressive weakness, deconditioning, malnutrition in the setting of malignancy status post chemo Patient with increasingly frequent falls over the past few weeks, and progressive weakness in the setting of malignancy and chemotherapy CT head without evidence of ICH or fracture, CT c-spine without evidence of fracture Falls likely secondary to orthostatic hypotension secondary to poor PO intake as well as deconditioning and malnutrition secondary to malignancy, chemotherapy, and poor PO intake; however, other causes of syncope not excluded Started on IV fluid, added midodrine, today as of 02/24 patient is not orthostatic anymore symptom is significantly improved MRI of the L-spine showed severe spinal stenosis MRI of brain without contrast did not show any evidence of metastasis I spoke with his daughter stated since patient is starting chemotherapy/radiation therapy he started having recurrent falls however poor appetite We will contact his primary oncologist /Sharlene on Thursday to see if his chemo radiation therapy can contribute to his symptoms -Patient does not have any paresthesia or muscle force of both lower extremities are intact - HTN Patient hypotensive (90/55) on arrival, which resolved after 2x NSS 500mL boluses Since then, BP has been normal to slightly elevated Continue home enalapril, metoprolol DM2 HbA1c 5.7 Patient's home metformin held on admission Continue BSG checks, sliding-scale insulin, hypoglycemic protocol Hypomagnesemia Magnesium 1.5 on admission; mag sulfate IV 1g administered in ED Repeat mag level ordered for AM HLD, CAD Continue home atorvastatin CKD3 Creatinine at baseline on admission 1.04 (baseline 0.8-1.0) Trend daily BMP Metastatic squamous cell carcinoma Patient follows with Dr. Su and is on carbo/taxol weekly Depression Continue home escitalopram, bupropion FEN: heart healthy, DM2 diet, LR@80mL/hr x3 bags Code status: conditional (YES to chest compressions and invasive airway, NO to defibrillation) DVT ppx: lovenox Held home meds: metformin PT/OT: ordered Case management: consulted Dispo: med/surg telemetry (2) Diabetes: (3) Depression: (4) Hyperlipidemia: (5) Hypertension: (6) Metastatic squamous cell carcinoma: (7) Stage 3 chronic kidney disease: (8) CAD (coronary artery disease): Admission and Anticipated Discharge Date Admission Date: February 22, 2022 Subjective Doing much better today, is not orthostatic neck, stop IV fluid Review of Systems Review of Systems: General: No malaise no weakness Neck: No tenderness no pain HEENT: No eye discharge no ear discharge Chest: No chest pain, no palpitation GI: Not distended, no nausea no vomiting Extremities: No edema no tenderness Neurology: No headache no weakness Psychiatric: No depression no anxiety Physical Exam Physical Exam: General: Alert oriented x3, well-nourished Neck: No lymphadenopathy, supple Respiratory: Lungs are clear to auscultation no chest abnormality Cardiovascular: Regular rate and rhythm no murmur no gallop vegetation Abdomen: Soft bowel sounds active Extremities: No edema no tenderness Skin: No jaundice no rash Neurology: Alert oriented x3 no acute distress moves all extremities Psychiatry mood and affect appropriate Results & Data Results & Data ([facility]) Vital Signs (Past 12 Hours) Vital Signs Temp Pulse Pulse Resp BP BP Pulse Ox 02/24/22 15:28 82 02/24/22 15:21 37.2 C 80 20 154/77 H 98 02/24/22 10:57 36.4 C L 88 22 139/64 100 02/24/22 08:20 99 H 175/91 H 02/24/22 08:19 83 141/73 H 02/24/22 08:18 36.6 C 88 19 117/66 97 02/24/22 07:11 72 PG Care Time/CCT Total # of Minutes Spent Total Time Spent with Patient: Total time spent is greater than 50% in coordination of care (as documented) at patient's floor/unit and/or counseling patient: Coding Level of Care Code 37476 Subseq Hosp Care Lvl 2 Diagnoses Fall W19.XXXA Encounter type: initial encounter Diabetes E11.9 Depression F32.A Hyperlipidemia E78.5 Hypertension I10 Metastatic squamous cell carcinoma C79.9 Stage 3 chronic kidney disease N18.30 CAD (coronary artery disease) I25.10 (1) Fall Encounter type: initial encounter Qualified Code(s): W19.XXXA - Unspecified fall, initial encounter
[2022-02-24] MEDS: METOPROLOL TARTRATE 25 MG TAB PO SCH (20:53)
[2022-02-25 06:39] LABS: Creatinine Clr Calc Pharmacy 81.3 ml/min; Est GFR (African American) 99.4 ml/min; Est GFR (Non-African American) 85.7 ml/min
[2022-02-25] MEDS: INSULIN ASPART PER UNIT SC SCH ×4 (08:29→21:01)
[2022-02-25] MEDS: NICOTINE 14 MG/24 HR PATCH TD SCH (08:32)
[2022-02-25] MEDS: MIDODRINE HCL 2.5 MG TAB PO SCH ×3 (08:33→17:21)
[2022-02-25] MEDS: ATORVASTATIN 40 MG TAB PO SCH (08:33)
[2022-02-25] MEDS: buPROPion XL 150 MG TABCR PO SCH (08:33)
[2022-02-25] MEDS: ENOXAPARIN INJ 40 MG/0.4 ML SYR SQ SCH (08:33)
[2022-02-25] MEDS: METOPROLOL TARTRATE 25 MG TAB PO SCH ×2 (08:34→21:01)
[2022-02-25] MEDS: ESCITALOPRAM OXALATE 10 MG TAB PO SCH (08:34)
--- NOTE | 2022-02-25 17:42 | Hospitalist Progress Note ---
Date of Service February 25, 2022 Assessment & Plan (1) Fall: Plan: 76yo male with a history of HTN, HLD, CAD, CKD3, and metastatic squamous cell carcinoma who presented to the emergency department this evening after a fall at home. Fall, progressive weakness, deconditioning, malnutrition in the setting of malignancy status post chemo Presented with increasingly frequent falls over the past few weeks, and progressive weakness in the setting of malignancy recent chemotherapy CT head without evidence of ICH or fracture, CT c-spine without evidence of fracture He was found to be orthostatic Falls likely secondary to orthostatic hypotension secondary to poor PO intake as well as deconditioning and malnutrition secondary to malignancy, chemotherapy, and poor PO intake; however, other causes of syncope not excluded Started on IV fluid, added midodrine, today as of 02/24 patient is not orthostatic anymore symptom is significantly improved MRI of the L-spine showed severe spinal stenosis, however patient does not have any lower extremity weakness, discussed with media consultant outside sales neurosurgeon over the phone at [facility] outpatient follow-up, that information was communicated to the who happens to be retired nurse MRI of brain without contrast did not show any evidence of metastasis oncologist /Sharlene - HTN Patient hypotensive (90/55) on arrival, which resolved after 2x NSS 500mL boluses Since then, BP has been normal to slightly elevated Continue home enalapril, metoprolol DM2 HbA1c 5.7 Patient's home metformin held on admission Continue BSG checks, sliding-scale insulin, hypoglycemic protocol Hypomagnesemia Magnesium 1.5 on admission; mag sulfate IV 1g administered in ED Repeat mag level ordered for AM HLD, CAD Continue home atorvastatin CKD3 Creatinine at baseline on admission 1.04 (baseline 0.8-1.0) Trend daily BMP Metastatic squamous cell carcinoma Patient follows with Dr. Su and is on carbo/taxol weekly Tomorrow as patient is supposed to get chemotherapy -He will be premedicated with prednisone Depression Continue home escitalopram, bupropion FEN: heart healthy, DM2 diet, LR@80mL/hr x3 bags Code status: conditional (YES to chest compressions and invasive airway, NO to defibrillation) DVT ppx: lovenox Held home meds: metformin PT/OT: ordered Case management: consulted Dispo: med/surg telemetry (2) Diabetes: (3) Depression: (4) Hyperlipidemia: (5) Hypertension: (6) Metastatic squamous cell carcinoma: (7) Stage 3 chronic kidney disease: (8) CAD (coronary artery disease): Admission and Anticipated Discharge Date Admission Date: February 22, 2022 Subjective Feels significantly better, however he becomes orthostatic after discontinuation of IV fluid Review of Systems Review of Systems: General: No malaise no weakness Neck: No tenderness no pain HEENT: No eye discharge no ear discharge Chest: No chest pain, no palpitation GI: Not distended, no nausea no vomiting Extremities: No edema no tenderness Neurology: No headache no weakness Psychiatric: No depression no anxiety Physical Exam Physical Exam: General: Alert oriented x3, well-nourished Neck: No lymphadenopathy, supple Respiratory: Lungs are clear to auscultation no chest abnormality Cardiovascular: Regular rate and rhythm no murmur no gallop vegetation Abdomen: Soft bowel sounds active Extremities: No edema no tenderness Skin: No jaundice no rash Neurology: Alert oriented x3 no acute distress moves all extremities Psychiatry mood and affect appropriate Results & Data Results & Data ([facility]) Vital Signs (Past 12 Hours) Vital Signs Temp Pulse Pulse Resp BP Pulse Ox 02/25/22 15:54 63 02/25/22 15:33 36.9 C 54 L 16 144/76 H 97 02/25/22 11:00 36.8 C 56 L 20 135/72 98 02/25/22 07:28 62 02/25/22 07:00 37.2 C 60 20 155/76 H 97 PG Care Time/CCT Total # of Minutes Spent Total Time Spent with Patient: Total time spent is greater than 50% in coordination of care (as documented) at patient's floor/unit and/or counseling patient: Coding Level of Care Code 33482 Subseq Hosp Care Lvl 3 Diagnoses Fall W19.XXXA Encounter type: initial encounter Diabetes E11.9 Depression F32.A Hyperlipidemia E78.5 Hypertension I10 Metastatic squamous cell carcinoma C79.9 Stage 3 chronic kidney disease N18.30 CAD (coronary artery disease) I25.10 (1) Fall Encounter type: initial encounter Qualified Code(s): W19.XXXA - Unspecified fall, initial encounter
[2022-02-25] MEDS ORDERED: predniSONE 20 MG TAB PO ONE (17:55)
[2022-02-26] MEDS ORDERED: predniSONE 20 MG TAB PO ONE (05:00)
[2022-02-26] MEDS: INSULIN ASPART PER UNIT SC SCH ×2 (09:31→12:52)
[2022-02-26] MEDS: MIDODRINE HCL 10 MG TAB PO SCH ×2 (09:33→12:49)
[2022-02-26] MEDS: ATORVASTATIN 40 MG TAB PO SCH (09:34)
[2022-02-26] MEDS: ESCITALOPRAM OXALATE 10 MG TAB PO SCH (09:35)
[2022-02-26] MEDS: buPROPion XL 150 MG TABCR PO SCH (09:35)
[2022-02-26] MEDS: ENOXAPARIN INJ 40 MG/0.4 ML SYR SQ SCH (09:35)
[2022-02-26] MEDS: METOPROLOL TARTRATE 25 MG TAB PO SCH (09:36)
[2022-02-26] MEDS: NICOTINE 14 MG/24 HR PATCH TD SCH (09:37)
[2022-02-26 11:15] VITALS: O2SAT 98
[2022-02-26 15:00] VITALS: TEMP 98.8
[2022-02-26 15:48] VITALS: BP 163/66
[2022-02-26 16:21] VITALS: PULSE 53
--- NOTE | 2022-02-26 16:29 | Discharge Summary ---
Date of Service February 26, 2022 Admission HPI Per Admitting Provider 76yo male with a history of HTN, HLD, CAD, CKD3, and metastatic squamous cell carcinoma who presented to the emergency department this evening after a fall at home. His is at bedside and provides additional history. This afternoon, the patient was in the backyard of their home with his and when trying to go back into the house he fell while walking up the stairs. reports that the patient landed on his side and also hit his head. Did not lose consciousness. About 15 minutes after the fall, patient began to have "projectile vomiting" which consisted of undigested food. The vomiting was intermittent for approximately 15 minutes; he was given Zofran ODT from his prior to arrival. There was no blood or bile in the emesis. Patient denies CP, change in dyspnea from baseline, change in abdominal pain from baseline. He denies current nausea, headache, or pain. Denies CP, change in dyspnea from baseline, change in abdominal pain from baseline. No current nausea or headache. It is noted that the patient has had poor po intake over the past few days. He does admit to progressive weakness over the past few weeks. Patient was started on chemotherapy a few months ago; he is followed by Dr. Mancia and was last seen by him about 1.5 months ago (next appointment scheduled in about 1 week). While in the ED, patient had a head CT that was negative for acute bleed or fracture. Principal Diagnosis Recurrent falls secondary to orthostatic hypotension Orthostatic hypotension multifactorial including dehydration, possible side effect of chemotherapy Discharge Exam General: Alert oriented x3, well-nourished Neck: No lymphadenopathy, supple Respiratory: Lungs are clear to auscultation no chest abnormality Cardiovascular: Regular rate and rhythm no murmur no gallop vegetation Abdomen: Soft bowel sounds active Extremities: No edema no tenderness Skin: No jaundice no rash Neurology: Alert oriented x3 no acute distress moves all extremities Psychiatry mood and affect appropriate Discharge Data Allergies Allergy/AdvReac Type Severity Reaction Status Date / Time No Known Drug Allergies Allergy Unknown Verified 02/21/22 20:40 Consultations 02/21/22 22:13 ED Decision to Admit Stat Ordered Studies 02/21/22 20:09 CT cervical spine wo con Stat CT head/brain wo con Stat 02/23/22 11:12 MR brain wo con Routine MR lumbar spine wo con Routine Hospital Course (1) Fall: 76yo male with a history of HTN, HLD, CAD, CKD3, and metastatic squamous cell carcinoma who presented to the emergency department this evening after a fall at home. Fall, progressive weakness, deconditioning, in the setting of metastatic squamous cell carcinoma of the skin status post chemo Presented with increasingly frequent falls over the past few weeks, and progressive weakness in the setting of malignancy recent chemotherapy CT head without evidence of ICH or fracture, CT c-spine without evidence of fracture He was found to be orthostatic Falls were likely secondary to orthostatic hypotension secondary to poor PO intake as well as chemotherapy, given her symptoms was started after he was started on chemo with Taxol and carbo, both can cause autonomic nervous system damage and orthostatic hypotension -Despite that the patient became adequately hydrated he remained orthostatic and subsequently midodrine was added to his regimen.currently, still the patient is orthostatic however much less symptomatic, patient advised to wear CARLOS hose Patient is to be evaluated by primary care doctor in couple of week to see if the patient has improved on breeds to continue taking midodrine Patient was advised to check the blood pressure in the morning and afternoon in the supine and standing position elective admission in [place] and provided to PCP The patient was taking metoprolol that was discontinued MRI of the L-spine showed severe spinal stenosis, however patient does not have any lower extremity weakness, discussed with it support consultant neurosurgeon over the phone at [facility] recommend outpatient follow-up with Dr. Cramer. that information was communicated to the who happens to be retired nurse MRI of brain without contrast did not show any evidence of metastasis oncologist /Sharlene - HTN Patient hypotensive (90/55) on arrival, which resolved after 2x NSS 500mL boluses Since then, BP has been normal to slightly elevated Continue home enalapril, metoprolol DM2 HbA1c 5.7 Patient's home metformin held on admission Continue BSG checks, sliding-scale insulin, hypoglycemic protocol Hypomagnesemia Magnesium 1.5 on admission; mag sulfate IV 1g administered in ED Repeat mag level ordered for AM HLD, CAD Continue home atorvastatin CKD3 Creatinine at baseline on admission 1.04 (baseline 0.8-1.0) Trend daily BMP Metastatic squamous cell carcinoma Patient follows with Dr. Su and is on carbo/taxol weekly Tomorrow as patient is supposed to get chemotherapy -He will be premedicated with prednisone Depression Continue home escitalopram, bupropion FEN: heart healthy, DM2 diet, LR@80mL/hr x3 bags Code status: conditional (YES to chest compressions and invasive airway, NO to defibrillation) DVT ppx: lovenox Held home meds: metformin PT/OT: ordered Case management: consulted Dispo: med/surg telemetry (2) Diabetes: (3) Depression: (4) Hyperlipidemia: (5) Hypertension: (6) Metastatic squamous cell carcinoma: (7) Stage 3 chronic kidney disease: (8) CAD (coronary artery disease): Total Time Total Time Spent Total Time Spent (In Minutes): 45 Discharge Plan Discharge Items Patient Disposition: Home - Home Health Services Reason For Visit: FALL Discharge Diagnosis: Orthostatic hypotension possibly secondary to side effect of recent chemotherapy ( Taxol ) , dehydration Severe L4-L5 spinal stenosis needs to follow with Dr Cramer outpatient Activity: Resume your previous activity Lifting: Gradually increase as tolerated Bathing: No limitations Sexual Activity: When tolerated Exercise/Sports: Gradually increase as tolerated Non-emergency contact: Primary Care Provider Call non-emergency contact if: you have any medication questions and your symptoms worsen Follow-up/Referrals: Emily Ceja MD [Primary Care Provider] - Ry Cramer MD [Outside Practitioners] - 03/12/22 (L4-L5 moderate to severe spinal stenosis) Diet: Regular Addtl Attending Provider Instructions: You are suffering from orthostatic hypotension that means that the blood pressure drops that he stands up this could be secondary to dehydration poor oral intake as well as chemotherapy that you received during your cancer treatment, please discuss it with your oncologist, check your blood pressure in sitting and stating position in the morning and afternoon , collect the information in a log book and provide that information to your doctor for furthe r adjustment You are started on midodrine for orthostatic hypotension please check your blood pressure in the morning and afternoon collect information and log book and provided to primary care doctor for further adjustment your are diagnosed with spinal canal stenosis ( narrowing ) please follow with Dr Cramer spinal surgeon Please avoid smoking you are discharged on nicotine patch Pending Studies at Discharge: No Stand-Alone Forms: [email or web address], Smoking Cessation Medications and DC Order Prescriptions: New nicotine 21-14-7 mg/24 hr patch, TD daily, sequential 1 patch topical QAM 90 Days Qty: 90 RF: 0 polyethylene glycol 3350 [Miralax] 17 gram Powder In Packet 17 g PO DAILY PRN (Reason: constipation) Qty: 10 RF: 0 midodrine 10 mg Tablet 10 mg PO TID@0800,1200,1700 Qty: 30 RF: 0 Continued oxycodone 5 mg tablet 5 mg PO .Q4-6H PRN (Reason: Pain) RF: 0 ondansetron HCl 8 mg tablet 8 mg PO Q8H PRN (Reason: Nausea) RF: 0 loperamide [Imodium A-D] 2 mg capsule 2 mg PO Q6H PRN (Reason: Diarrhea) RF: 0 bupropion HCl 150 mg tablet extended release 24 hr 150 mg PO QAM RF: 0 enalapril maleate [Vasotec] 5 mg tablet 5 mg PO BID RF: 0 atorvastatin 80 mg tablet 80 mg PO DAILY RF: 0 escitalopram oxalate 10 mg tablet 10 mg PO DAILY RF: 0 dexamethasone 4 mg tablet See Rx Instructions .ROUTE .COMPLEX RF: 0 metformin 1,000 mg tablet 1,000 mg PO DAILY RF: 0 Discontinued metoprolol tartrate 25 mg tablet 25 mg PO BID RF: 0 Discharge Orders: Discharge Order (Routine); Ordered 02/26/22 Ordered By: Austen Lobo Admission Data Admit Date/Time: 02/22/22 10:58 Attending Provider: Austen Lobo Admit Provider: Tunde Patel Primary Care Provider: Emily Ceja Other Providers: Amirah Lopez ; [facility] Other Interventions: Discharge Summary Assessment (RN) Last Done: 02/26/22 15:32 Coding Level of Care Code D/C DAY MANAGEMENT >30 MINS Diagnoses Fall W19.XXXA Encounter type: initial encounter Diabetes E11.9 Depression F32.A Hyperlipidemia E78.5 Hypertension I10 Metastatic squamous cell carcinoma C79.9 Stage 3 chronic kidney disease N18.30 CAD (coronary artery disease) I25.10
== END 2022-02-26 16:25 | disposition home health service (06) ==
LOC: 2E 19:51 → ED 19:51 → SUATTDRO 23:26 → 2E 23:56 → 2N 02-22 11:10

== ENCOUNTER 2022-04-04 12:00 | Inpatient (IN) ==
[2022-04-04 12:58] LABS: Basophils # (auto) 0.01 K/uL (0-0.2); Basophils % (auto) 0.4 %; Eosinophils # (auto) 0.03 K/uL (0-0.5); Eosinophils % (auto) 1.3 %; Hematocrit (blood only) 28.7 % (42-52); Hemoglobin 9.7 g/dL (14.0-18.0); Lymphocytes % (auto) 30.4 %; Mean Corpuscular Hemoglobin 33.2 pg (25-34); Mean Corpuscular Hgb Conc 33.8 g/dL (32-36); Mean Corpuscular Volume 98.3 fL (80-100); Mean Platelet Volume 9.9 fL (7.4-10.4); Monocytes # (auto) 0.56 K/uL (0.11-0.59); Monocytes % (auto) 24.3 %; Neutrophils % (auto) 43.6 %; Platelet Count 110 K/uL (130-400); RDW Coefficient of Variation 16.1 % (11.5-14.5); RDW Standard Deviation 57.4 fL (36.4-46.3); Red Blood Count 2.92 M/uL (4.7-6.1)
--- NOTE | 2022-04-04 13:22 | XRay Report ---
SINGLE VIEW CHEST CLINICAL HISTORY: Generalized weakness. FINDINGS: 2 AP, portable, upright chest radiographs are compared to study dated 02/27/2022. Correlatio n is made with chest CT dated 08/30/2020. The examination is degraded by portable technique and apica l lordotic positioning. A left internal jugular central venous infusion port is unchanged in position . The heart is mildly enlarged noting atherosclerotic calcification of the thoracic aorta. The pulmon dong vasculature is noncongested. Chronic interstitial thickening is similar to previous. There is bib asilar scarring/atelectasis. The lungs and pleural spaces are otherwise clear. No pneumothorax is see n. The skeletal structures are osteopenic. The bony thorax is grossly intact. IMPRESSION: Cardiomegaly with no acute cardiopulmonary abnormality. ACT 112: Negative or not required by law. Electronically signed by: Alexis Strong M.D. 04/04/2022 1:21 PM
[2022-04-04 13:32] LABS: Albumin Globulin Ratio 1.5 (0.9-2); Albumin Level 3.7 gm/dl (3.4-5.0); BUN Creatinine Ratio 15.6 (10-20); Bilirubin,Total 0.9 mg/dl (0.2-1.0); Calcium 9.2 mg/dl (8.5-10.1); Creatinine Clr Calc Pharmacy 73.2 ml/min; Est GFR (African American) 95.1 ml/min; Est GFR (Non-African American) 82.1 ml/min; Globulin 2.5 gm/dl (2.5-4.0); Potassium 3.7 mmol/L (3.5-5.1); Total Protein 6.2 gm/dl (6.0-8.3)
[2022-04-04] MEDS ORDERED: SODIUM CHLORIDE 0.9% 1000ML 1,000 ML IV STA (14:03)
[2022-04-04] MEDS ORDERED: SODIUM CHLORIDE 0.9% 1000ML 500 ML IV ONE (14:03)
--- NOTE | 2022-04-04 14:03 | Emergency Department Note ---
Impression & Plan Generalized weakness, Metastatic squamous cell carcinoma, Frequent falls ED Provider Note INFORMANT: Patient, EMS and ED PROVIDER(S): Charanjit Gaytan MD CHIEF COMPLAINT: Weakness PLAN: Disposition: Admitted Condition: Good Outpatient prescription management: none Referral: None MEDICAL DECISION MAKING: Patient is suffering from a chronic decline. Has had problems with fluctuating blood pressure and falls. He had no focal findings on examination today. He was very weak. He feels like he is getting to the point where he cannot function well at home. is very concerned about him being at home at this point. There was discussion for hospice next week. A work-up was initiated. Patient's chest x-ray was unremarkable. ECG was normal. Patient CBC and chemistry panel was unremarkable. Urinalysis was ordered. She was hydrated with normal saline. CT imaging of the head was performed and was negative. and patient feel comfortable going home given his weakness. Consultation was made with the [facility]. Patient was evaluated in [facility] ER and admitted for further management Triage Nursing notes reviewed and agree them. Vital Signs: reviewed and remarkable for no significant abnormalities Differential diagnosis: Infection, dehydration, metabolic abnormality, hypo/hyperglycemia, electrolyte disturbance, anemia, hypoxia, cardiac sources, intracerebral event, toxicologic, neurologic, as well as other pathologies. Diagnostics interpreted by me: EC Lead ECG performed and revealed Normal sinus rhythm at 82, normal [place], QRS normal. No elevation or depression. No PACs or PVCs Cardiac Monitoring: Cardiac monitoring ordered by me: The patient was placed on continuous cardiac monitoring and observed. It revealed a normal sinus rhythm at 74 beats per minute without ectopy or evidence of dysrhythmia. Imaging studies: Chest x-ray. Findings: A chest x-ray was performed and revealed no pneumothorax, effusion, infiltrate, pulmonary edema, free air under the diaphragm, or wide mediastinum. Impression: No acute disease. Head CT: A noncontrast CT scan of the head was performed and was negative for tumor, fracture, intracranial hemorrhage, or other acute pathology. HPI: The patient is a 76year old male who presents to the Emergency Room with complaints of weakness. This started several months ago and has been progressive. Patient has had frequent falls. He notes dizziness and orthostatic drops with his blood pressure. He has had several ER visits for falls and low blood pressure. Patient was seen earlier this week after a fall and head injury. Patient notes that he thinks he fell down steps again today but does denies any injury. helps with the history and states that the fall down the steps was earlier this week. The patient had evaluation by home health. His blood pressure was mildly low. They contacted his primary physician who referred him to the emergency department. also notes that th e patient has a pending evaluation by hospice next week due to his metastatic cancer and progressive decline. The patient has found no relieving factors. Current pain is rated as 0/10. Patient had a laceration repair of the right eyebrow on last visit. Denies any complaints or complications with that. Pt denies LOC, headache, fevers, chills, diaphoresis, visual changes, neck pain, chest pain, breathing difficulties, nausea, vomiting, abdominal pain, back pain, melena, hematochezia, urinary symptoms, numbness, rash, or other complaints. ROS: See above HPI for pertinent positives & negatives. A total of 10 systems reviewed and were otherwise negative. PAST MEDICAL HISTORY:See Below , metastatic cancer, orthostasis PAST SURGICAL HISTORY:See Below, FAMILY HISTORY:See Below SOCIAL HISTORY:See Below, HOME MEDICATIONS:See Below ALLERGIES:See Below VITALS:See Below PHYSICAL EXAMINATION: GENERAL: Awake, alert, well-appearing, in no distress HENT: Normocephalic, healing abrasions noted to the right scalp. Laceration repair intact without signs of infection in the right eyebrow. There is right periorbital ecchymosis present. Oropharynx unremarkable. EYES: Normal conjunctiva. Sclera non-icteric. NECK: Inspection normal. Non-tender. Supple. No nuchal rigidity. FROM. No masses. RESPIRATORY: Clear to auscultation. No wheezes. No rales. Normal respiratory effort. CARDIAC: Normal rate. Normal rhythm. No murmurs. No rubs. Extremities warm and well perfused. Pulses equal. No JVD. GI: Soft, non-distended. No tenderness to palpation. No rebound or guarding. No masses. RECTAL: Deferred. MUSCULOSKELETAL: Atraumatic. Chest examination reveals no tenderness. The back is symmetrical on inspection without obvious abnormality. There is no CVA tenderness to palpation. No joint edema. LOWER EXTREMITIES: Calves are equal size bilaterally and non-tender. No edema. No discoloration. NEURO: Relatively normal sensorium. Patient does have some confusion with detail about history. Generally weak. No sensory or focal motor deficits noted. SKIN: No rash or jaundice noted. Charanjit Gaytan MD Past Med/Surg History Medical History Actinic keratosis Adenomatous polyp Angioma CAD (coronary artery disease) s/p CABG x 3 approx 2015 in [place], does not follow with cardiology at this time per PAT RN records Depression Diabetes Erectile dysfunction Fall Fatigue GERD (gastroesophageal reflux disease) Hearing difficulty History of nonmelanoma skin cancer Hyperlipidemia Hypertension Lentigines Metastatic squamous cell carcinoma Myocardial infarction HX 2015 Neoplasm of uncertain behavior of skin Seborrheic keratoses Smoker Stage 3 chronic kidney disease Stroke HX 2015 Surgical History H/O heart surgery Triple bypass with 3 stents- [place] -approx 2014 History of colonoscopy Port-A-Cath in place (12/04/21) Insertion of Access Port in Left Jugular Vein with Fluoroscopy(Left) - Kelechi Suarez DO, FACS 12/04/2021 S/P wisdom tooth extraction Family History Brother Cardiac arrest Father , 88yo Myocardial infarction Mother , 90yo Myocardial infarction Hypertension Daughter Cancer brain Brother No problems noted. Son No problems noted. Son No problems noted. Daughter Brain cancer Denies family history of Ovarian cancer Prostate cancer Breast cancer Colorectal cancer Social History Smoking Status: Current every day smoker Tobacco Type: Cigarettes Age Started Using Tobacco: 15; packs per day: 1; Years Smoked: 61; Cigarettes Per Day: 10 CIGS A DAY; Second Hand Exposure: No; Hx Alcohol Use: No Hx Substance Use: No Preferred Language: Arabic Communication Ability: Effective Visual Impairment: No Limitations Hearing Ability: Hard of Hearing Ship Captain Required: No Beliefs That Will Affect Care: None marital status: Current Living Situation: Spouse Current Living Situation Comment: Lives with his girlfriend? current occupational status: retired current occupation: Worked in [employer] How many Children do You have: 4 Feels Safe at Home: Yes Childhood Exposure to Second-Hand Smoke: Yes caffeine: Yes during the past year weight has: increased > 10 lbs Dental Care, Regularly: No Physical Activity Frequency: Does not Exercise Seatbelt Use: always Sunscreen Use: Yes Assistive Devices: Cane and Walker Allergies Allergies Allergy/AdvReac Type Severity Reaction Status Date / Time No Known Drug Allergies Allergy Unknown Verified 04/02/22 07:08 Home Meds Home Medications Medication Instructions Recorded Confirmed ondansetron HCl 8 mg tablet 8 mg PO Q8H PRN 11/20/21 04/04/22 oxycodone 5 mg tablet 5 mg PO .Q4-6H PRN tab 11/20/21 04/04/22 bupropion HCl 150 mg 24 hr tablet, 150 mg PO QAM 11/26/21 04/04/22 extended release loperamide 2 mg capsule (Imodium 2 mg PO Q6H PRN 12/09/21 04/04/22 A-D) atorvastatin 80 mg tablet 80 mg PO DAILY 02/21/22 04/04/22 metformin 1,000 mg tablet 1,000 mg PO DAILY 02/21/22 04/04/22 Previous Rx's Medication Instructions Recorded escitalopram oxalate 10 mg tablet 10 mg PO DAILY #30 tab 02/28/22 midodrine 10 mg tablet 10 mg PO TID #90 tab 02/28/22 enalapril maleate 5 mg tablet 5 mg PO DAILY #90 tab 03/04/22 (Vasotec) lancing device with lancets kit #1 ea 03/20/22 (Accu-Chek Soft Dev Lancets) Results & Data (ED) Vital Signs Vital Signs - 24 hr 04/04/22 11:45 04/04/22 12:11 04/04/22 12:34 Temperature 36.9 C Temperature Source Oral Pulse Rate 84 Pulse Rate [Finger] 84 Respiratory Rate 18 16 Blood Pressure 108/66 Blood Pressure [Left Arm] 108/66 Blood Pressure Mean 80 Blood Pressure Mean [Left Arm] 80 Pulse Oximetry 97 97 Oxygen Delivery Method Room Air Sepsis Recent Fever Within 48 Hours No Sepsis New/Unexplained Change in Mental Status No Sepsis Action Taken by Nursing No Action Required 04/04/22 15:52 Temperature Temperature Source Pulse Rate Pulse Rate [Finger] 75 Respiratory Rate 16 Blood Pressure Blood Pressure [Left Arm] 140/73 Blood Pressure Mean Blood Pressure Mean [Left Arm] 95 Pulse Oximetry 98 Oxygen Delivery Method Sepsis Recent Fever Within 48 Hours Sepsis New/Unexplained Change in Mental Status Sepsis Action Taken by Nursing Laboratory Data Result diagrams: 04/04/22 12:25 04/04/22 12:25 Lab Results 04/04/22 04/04/22 04/04/22 Range/Units 12:25 12:25 12:25 WBC 2.30 L (4.8-10.8) K/uL RBC 2.92 L (4.7-6.1) M/uL Hgb 9.7 L (14.0-18.0) g/dL Hct 28.7 L (42-52) % MCV 98.3 (80-100) fL MCH 33.2 (25-34) pg MCHC 33.8 (32-36) g/dL RDW Std Deviation 57.4 H (36.4-46.3) fL RDW Coeff of Miriam 16.1 H (11.5-14.5) % Plt Count 110 L (130-400) K/uL MPV 9.9 (7.4-10.4) fL Immature Gran % (Auto) 0.0 % Neut % (Auto) 43.6 % Lymph % (Auto) 30.4 % [place] % (Auto) 24.3 % Eos % (Auto) 1.3 % Baso % (Auto) 0.4 % Neut # (Auto) 1.00 L (1.4-6.5) K/uL Lymph # (Auto) 0.70 L (1.2-3.4) K/uL [place] # (Auto) 0.56 (0.11-0.59) K/uL Eos # (Auto) 0.03 (0-0.5) K/uL Baso # (Auto) 0.01 (0-0.2) K/uL Immature Gran # (Auto) 0.00 (0.00-0.02) K/uL Sodium 132 L (136-145) mmol/L Potassium 3.7 (3.5-5.1) mmol/L Chloride 100 (98-107) mmol/L Carbon Dioxide 25 (21-32) mmol/L Anion Gap 7 (3-11) BUN 14 (6-23) mg/dl Creatinine 0.90 (0.6-1.4) mg/dl Est Cr Clr Drug Dosing 73.2 ml/min Est GFR ( Amer) 95.1 ml/min Est GFR (Non-Af Amer) 82.1 ml/min BUN/Creatinine Ratio 15.6 (10-20) Glucose 169 H (70-99(Fasting)) mg/dl Calcium 9.2 (8.5-10.1) mg/dl Total Bilirubin 0.9 (0.2-1.0) mg/dl AST 27 (13-39) U/L ALT 39 (7-52) U/L Alkaline Phosphatase 122 H (34-104) U/L Total Protein 6.2 (6.0-8.3) gm/dl Albumin 3.7 (3.4-5.0) gm/dl Globulin 2.5 (2.5-4.0) gm/dl Albumin/Globulin Ratio 1.5 (0.9-2) TSH 1.660 (0.300-4.500) uIu/ml SARS-CoV-2, RNA, NAAT (NEGATIVE) 04/04/22 Range/Units 13:05 WBC (4.8-10.8) K/uL RBC (4.7-6.1) M/uL Hgb (14.0-18.0) g/dL Hct (42-52) % MCV (80-100) fL MCH (25-34) pg MCHC (32-36) g/dL RDW Std Deviation (36.4-46.3) fL RDW Coeff of Miriam (11.5-14.5) % Plt Count (130-400) K/uL MPV (7.4-10.4) fL Immature Gran % (Auto) % Neut % (Auto) % Lymph % (Auto) % [place] % (Auto) % Eos % (Auto) % Baso % (Auto) % Neut # (Auto) (1.4-6.5) K/uL Lymph # (Auto) (1.2-3.4) K/uL [place] # (Auto) (0.11-0.59) K/uL Eos # (Auto) (0-0.5) K/uL Baso # (Auto) (0-0.2) K/uL Immature Gran # (Auto) (0.00-0.02) K/uL Sodium (136-145) mmol/L Potassium (3.5-5.1) mmol/L Chloride (98-107) mmol/L Carbon Dioxide (21-32) mmol/L Anion Gap (3-11) BUN (6-23) mg/dl Creatinine (0.6-1.4) mg/dl Est Cr Clr Drug Dosing ml/min Est GFR ( Amer) ml/min Est GFR (Non-Af Amer) ml/min BUN/Creatinine Ratio (10-20) Glucose (70-99(Fasting)) mg/dl Calcium (8.5-10.1) mg/dl Total Bilirubin (0.2-1.0) mg/dl AST (13-39) U/L ALT (7-52) U/L Alkaline Phosphatase (34-104) U/L Total Protein (6.0-8.3) gm/dl Albumin (3.4-5.0) gm/dl Globulin (2.5-4.0) gm/dl Albumin/Globulin Ratio (0.9-2) TSH (0.300-4.500) uIu/ml SARS-CoV-2, RNA, NAAT NEGATIVE (NEGATIVE) Administered Medications Sodium Chloride (Nss 1000ml) 1,000 mls @ 125 mls/hr IV .Q8H STA Stop: 04/04/22 22:02 Last Admin: 04/04/22 15:59 Dose: 125 mls/hr Documented by: [id number] Discontinued Medications Sodium Chloride (Nss 1000ml) 500 mls @ 999 mls/hr IV .Q31M ONE Stop: 04/04/22 14:33 Last Infusion: 04/04/22 15:59 Dose: 0 mls/hr Documented by: [id number] Admin: 04/04/22 14:36 Dose: 999 mls/hr Documented by: [id number] Imaging Data Radiologist's Impression: Chest X-Ray 04/04/22 12:10 SINGLE VIEW CHEST CLINICAL HISTORY: Generalized weakness. FINDINGS: 2 AP, portable, upright chest radiographs are compared to study dated 02/27/2022. Correlation is made with chest CT dated 08/30/2020. The examination is degraded by portable technique and apical lordotic positioning. A left in ternal jugular central venous infusion port is unchanged in position. The heart is mildly enlarged noting atherosclerotic calcification of the thoracic aorta. The pulmonary vasculature is noncongested. Chronic interstitial thickening is similar to previous. There is bibasilar scarring/atelectasis. The lungs and pleural spaces are otherwise clear. No pneumothorax is seen. The skeletal structures are osteopenic. The bony thorax is grossly intact. IMPRESSION: Cardiomegaly with no acute cardiopulmonary abnormality. ACT 112: Negative or not required by law. Electronically signed by: Alexis Strong M.D. 04/04/2022 1:[address] 04/04/22 13:42 CT OF THE HEAD WITHOUT CONTRAST CLINICAL HISTORY: fall COMPARISON STUDY: MRI of the brain February 23, 2022. Head CT April 02, 2022. CT DOSE: 1228.53 mGy.cm TECHNIQUE: Helical axial images of the head were obtained without IV contrast. Automated exposure control was utilized for the study. A dose lowering technique was utilized adhering to the principles of ALARA. FINDINGS: No acute intracranial hemorrhage, midline shift or mass effect is present. The ventricular system is stable. White matter hypodensities are unchanged and suggest small vessel disease. 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 The basal cisterns are patent. No extra-axial collections are present. There are no findings to suggest acute dural sinus thrombosis or acute territorial infarct. No significant calvarial abnormalities are present. Visualized portions of the sinuses and mastoid air cells are clear. Small left forehead contusion is present. There is no calvarial fracture. IMPRESSION: 1. No acute intracranial findings. No change in appearance of the brain. 2. Left forehead contusion. No calvarial fracture. ACT 112: Negative or not required by law. Electronically signed by: Juancho Gomez M.D. 04/04/2022 2:24 PM Discharge Plan Visit Data Chief Complaint: Fall Stated Complaint: WEAKNESS, DIZZINESS, FALLS ED Provider: Charanjit Gaytan Discharge Problem: Generalized weakness, Metastatic squamous cell carcinoma, Frequent falls Forms Stand Alone Forms: My [facility] [employer] Prescriptions Prescriptions: No Action oxycodone 5 mg tablet 5 mg PO .Q4-6H PRN (Reason: Pain) RF: 0 ondansetron HCl 8 mg tablet 8 mg PO Q8H PRN (Reason: Nausea) RF: 0 loperamide [Imodium A-D] 2 mg capsule 2 mg PO Q6H PRN (Reason: Diarrhea) RF: 0 escitalopram oxalate 10 mg tablet 10 mg PO DAILY Qty: 30 RF: 5 midodrine 10 mg tablet 10 mg PO TID Qty: 90 RF: 5 enalapril maleate [Vasotec] 5 mg tablet 5 mg PO DAILY Qty: 90 RF: 1 (DME) lancing device with lancets [Accu-Chek Soft Dev Lancets] Kit See Rx Instructions .Route Qty: 1 RF: 0 bupropion HCl 150 mg tablet extended release 24 hr 150 mg PO QAM RF: 0 atorvastatin 80 mg tablet 80 mg PO DAILY RF: 0 metformin 1,000 mg tablet 1,000 mg PO DAILY RF: 0 Referrals Referrals: Emily Ceja MD [Primary Care Provider] -
--- NOTE | 2022-04-04 14:26 | CT Scan Report ---
CT OF THE HEAD WITHOUT CONTRAST CLINICAL HISTORY: fall COMPARISON STUDY: MRI of the brain February 23, 2022. Head CT April 02, 2022. CT DOSE: 1228.53 mGy.cm TECHNIQUE: Helical axial images of the head were obtained without IV contrast. Automated exposure con trol was utilized for the study. A dose lowering technique was utilized adhering to the principles o f ALARA. FINDINGS: No acute intracranial hemorrhage, midline shift or mass effect is present. The ventricular system is stable. White matter hypodensities are unchanged and suggest small vessel disease. Old infa rct within the left cerebellar hemisphere is noted. The basal cisterns are patent. No extra-axial col lections are present. There are no findings to suggest acute dural sinus thrombosis or acute territor ial infarct. No significant calvarial abnormalities are present. Visualized portions of the sinuses a nd mastoid air cells are clear. Small left forehead contusion is present. There is no calvarial fract ure. IMPRESSION: 1. No acute intracranial findings. No change in appearance of the brain. 2. Left forehead contusion. No calvarial fracture. ACT 112: Negative or not required by law. Electronically signed by: Juancho Gomez M.D. 04/04/2022 2:24 PM
[2022-04-04] MEDS ORDERED: oxyCODONE HCL IR 5 MG TAB (IMMEDIATE RELEASE) PO PRN (16:04)
[2022-04-04] MEDS ORDERED: ONDANSETRON 8MG OD TAB PO PRN (16:04)
[2022-04-04] MEDS ORDERED: LOPERAMIDE HCL 2 MG CAP PO PRN (16:04)
--- NOTE | 2022-04-04 16:24 | History & Physical Report ---
Date of Service April 04, 2022 Assessment & Plan (1) Generalized weakness: Plan: Generalized weakness in 76yo male with a history of HTN, HLD, CAD, CKD3, and metastatic squamous cell carcinoma. Patient with increasingly frequent falls over the past few weeks, and pr ogressive weakness in the setting of malignancy and chemotherapy Falls likely secondary to hypotension secondary to poor PO intake as well as deconditioning and malnutrition secondary to malignancy, chemotherapy, and poor PO intake; however, other causes of syncope not excluded Admit to med/surg PT/OT consulted Nutrition consult placed * Plan was to meet with hospice next week. * appears agreeable with it, however patient still has reservations. * Patient wants to be a DNR/DNI, but may consider restarting chemo. (2) Frequent falls: Plan: Patient has been having frequent falls. May be related to his chemotherapy, advanced cancer, deconditioning. (3) Hypertension: Plan: Will hold his BP meds. will continue midorine. will monitor. (4) Hyperlipidemia: Plan: Patient will continue on statins. may consider holding this due to his advanced cancer. (5) Metastatic squamous cell carcinoma: Plan: Followed up with Dr. Mancia (6) Diabetes: Plan: Patient's home metformin held on admission Continue BSG checks, sliding-scale insulin, hypoglycemic protocol (7) Depression: Plan: Continue home escitalopram, bupropion Plan: Code: DNR/DNI History of Present Illness Chief Complaint: geenralized weakness Primary Care Provider: Emily Ceja MD This is a pleasant 76 yo male with a history of HTN, HLD, CAD, CKD3, metastatic squamous cell carcinoma and recent hospital stay for deconditioning present to the hospital for generalized weakness. Patient recently fell down 8 steps on 04/02/22. His is at bedside. She states injured the right side of his face and hsi right shoulder. He has been receiving chemotherapy for the past few weeks, but did not receive it this past thursday as per patient. His is concerned that he is getting too weak to be at home. She is interested in hospice, however, the patient remains unsure. Patient though continues to have pain in his right shoulder. Patient used to follow with Dr. Mancia. Allergies Allergy/AdvReac Type Severity Reaction Status Date / Time No Known Drug Allergies Allergy Unknown Verified 04/02/22 07:08 Home Medications Medication Instructions Recorded Confirmed Type ondansetron HCl 8 mg tablet 8 mg PO Q8H PRN 11/20/21 04/04/22 History oxycodone 5 mg tablet 5 mg PO .Q4-6H PRN tab 11/20/21 04/04/22 History bupropion HCl 150 mg 24 hr tablet, 150 mg PO QAM 11/26/21 04/04/22 History extended release loperamide 2 mg capsule (Imodium 2 mg PO Q6H PRN 12/09/21 04/04/22 History A-D) atorvastatin 80 mg tablet 80 mg PO DAILY 02/21/22 04/04/22 History metformin 1,000 mg tablet 1,000 mg PO DAILY 02/21/22 04/04/22 History escitalopram oxalate 10 mg tablet 10 mg PO DAILY #30 tab 02/28/22 04/04/22 Rx midodrine 10 mg tablet 10 mg PO TID #90 tab 02/28/22 04/04/22 Rx enalapril maleate 5 mg tablet 5 mg PO DAILY #90 tab 03/04/22 04/04/22 Rx (Vasotec) lancing device with lancets kit #1 ea 03/20/22 Rx (Accu-Chek Soft Dev Lancets) Past Med/Surg History Medical History Actinic keratosis Adenomatous polyp Angioma CAD (coronary artery disease) s/p CABG x 3 approx 2014 in [place], does not follow with cardiology at this time per PAT RN records Depression Diabetes Erectile dysfunction Fall Fatigue GERD (gastroesophageal reflux disease) Hearing difficulty History of nonmelanoma skin cancer Hyperlipidemia Hypertension Lentigines Metastatic squamous cell carcinoma Myocardial infarction HX 2015 Neoplasm of uncertain behavior of skin Seborrheic keratoses Smoker Stage 3 chronic kidney disease Stroke HX 2015 Surgical History H/O heart surgery Triple bypass with 3 stents- [place] -approx 2014 History of colonoscopy Port-A-Cath in place (12/04/21) Insertion of Access Port in Left Jugular Vein with Fluoroscopy(Left) - Kelechi Suarez DO, FACS 12/04/2021 S/P wisdom tooth extraction Family History Brother Cardiac arrest Father , 88yo Myocardial infarction Mother , 90yo Myocardial infarction Hypertension Daughter Cancer brain Brother No problems noted. Son No problems noted. Son No problems noted. Daughter Brain cancer Denies family history of Ovarian cancer Prostate cancer Breast cancer Colorectal cancer Social History Smoking Status: Smoker, status unknown Tobacco Type: Cigarettes Age Started Using Tobacco: 15; packs per day: 1; Years Smoked: 61; Cigarettes Per Day: 10 CIGS A DAY; Second Hand Exposure: No; Hx Alcohol Use: No Hx Substance Use: No Preferred Language: Wolof Communication Ability: Effective Visual Impairment: No Limitations Hearing Ability: Hard of Hearing Director Metabolism Required: No Beliefs That Will Affect Care: None marital status: Current Living Situation: Spouse Current Living Situation Comment: Lives with his girlfriend? current occupational status: retired current occupation: Worked in [employer] How many Children do You have: 4 Feels Safe at Home: Yes Safety Concerns: Feels Safe At This Time Childhood Exposure to Second-Hand Smoke: Yes caffeine: Yes during the past year weight has: increased > 10 lbs Dental Care, Regularly: No Physical Activity Frequency: Does not Exercise Seatbelt Use: always Sunscreen Use: Yes Assistive Devices: Cane and Walker Review of Systems Constitutional: no fever Eyes: no blind spots and no diplopia Ear, Nose, Mouth, Throat: no ear pain and no ear trauma Respiratory: no cough Cardiovascular: no chest pain Gastrointestinal: no abdominal pain Genitourinary: no dysuria Musculoskeletal: no back pain Integumentary: no acne and no rash Neurologic: no gait abnormality Psychiatric: no behavioral changes Endocrine: + fatigue Hematologic / Lymphatic: no easy bleeding Allergy / Immunological: no GI upset with certain foods Physical Exam Constitutional: WD/WN, vitals as above Eyes: PERRL, conjunctivae normal, anicteric sclerae ENMT: external ear and nose normal, oropharynx normal Neck: trachea midline, no thyromegaly Respiratory: normal respiratory effort, lungs clear to auscultation Cardiovascular: RRR, no murmur, no edema Gastrointestinal (Abdomen): normal bowel sounds, soft, nontender, no hepatosplenomegaly Skin: no rashes, warm and dry (except for excortiations on his right face.) Neurologic: PERRL, EOMI, accommodation nl, no face palsy, no dysarthria Psychiatric: A+Ox3, euthymic affect Lymphatic: no cervical or axillary lymphadenopathy Results & Data Results & Data ([facility]) Vital Signs (Past 12 Hours) Vital Signs Temp Pulse Pulse Resp BP BP Pulse Ox 04/04/22 12:11 84 16 108/66 97 04/04/22 11:45 36.9 C 84 18 108/66 97 PG Care Time/CCT Total # of Minutes Spent Total Time Spent with Patient: Total time spent is greater than 50% in coordination of care (as documented) at patient's floor/unit and/or counseling patient: Coding Level of Care Code 23414 Initial Inpt Care Lvl 3 Diagnoses Generalized weakness R53.1 Frequent falls R29.6 Hypertension I10 Hyperlipidemia E78.5 Metastatic squamous cell carcinoma C79.9 Diabetes E11.9 Depression F32.A
[2022-04-04] MEDS: MIDODRINE HCL 10 MG TAB PO SCH (21:28)
[2022-04-04] MEDS ORDERED: HEPARIN 100 UNIT/ML 5ML FLUSH ONE (23:37)
[2022-04-05] MEDS: MIDODRINE HCL 10 MG TAB PO SCH (08:57)
[2022-04-05] MEDS: ATORVASTATIN 40 MG TAB PO SCH (08:59)
[2022-04-05] MEDS: buPROPion XL 150 MG TABCR PO SCH (08:59)
[2022-04-05] MEDS: ESCITALOPRAM OXALATE 10 MG TAB PO SCH (09:00)
--- NOTE | 2022-04-05 09:06 | Hospitalist Progress Note ---
Date of Service April 05, 2022 Assessment & Plan (1) Generalized weakness: Plan: Generalized weakness in 76yo male with a history of HTN, HLD, CAD, CKD3, and metastatic squamous cell carcinoma. Patient with increasingly frequent falls over the past few weeks, and pr ogressive weakness in the setting of malignancy and chemotherapy Falls likely secondary to hypotension secondary to poor PO intake as well as deconditioning and malnutrition secondary to malignancy, chemotherapy, and poor PO intake; however, other causes of syncope not excluded Admit to med/surg PT/OT consulted: awaiting input. Nutrition consult placed * Plan was to meet with hospice next week. * appears agreeable with it, however patient still has reservations. * Patient wants to be a DNR/DNI, but may consider restarting chemo. (2) Frequent falls: Plan: Patient has been having frequent falls. May be related to his chemotherapy, advanced cancer, deconditioning. (3) Hypertension: Plan: Will hold his BP meds. will hold midorine. will monitor.BP at goal. (4) Hyperlipidemia: Plan: Patient will continue on statins. may consider holding this due to his advanced cancer. (5) Metastatic squamous cell carcinoma: Plan: Followed up with Dr. Mancia (6) Diabetes: Plan: Patient's home metformin held on admission Continue BSG checks, sliding-scale insulin, hypoglycemic protocol (7) Depression: Plan: Continue home escitalopram, bupropion Plan: Code: DNR/DNI Admission and Anticipated Discharge Date Admission Date: April 04, 2022 Subjective Patient required help going to the head of the bed. Patient reports no worsening weakness. Review of Systems Review of Systems: All systems reviewed & are unremarkable except as noted in HPI & below Physical Exam Constitutional: WD/WN, vitals as above Eyes: PERRL, conjunctivae normal, anicteric sclerae ENMT: external ear and nose normal, oropharynx normal Neck: trachea midline, no thyromegaly Respiratory: normal respiratory effort, lungs clear to auscultation Cardiovascular: RRR, no murmur, no edema Gastrointestinal (Abdomen): normal bowel sounds, soft, nontender, no hepatosplenomegaly Skin: no rashes, warm and dry (except for excortiations on his right face.) Neurologic: PERRL, EOMI, accommodation nl, no face palsy, no dysarthria Psychiatric: A+Ox3, euthymic affect Lymphatic: no cervical or axillary lymphadenopathy Results & Data Results & Data ([facility]) Vital Signs (Past 12 Hours) Vital Signs Temp Pulse Resp BP Pulse Ox 04/05/22 07:27 36.9 C 76 16 136/62 96 04/04/22 22:28 36.6 C 69 18 154/68 H 96 PG Care Time/CCT Total # of Minutes Spent Total Time Spent with Patient: Total time spent is greater than 50% in coordination of care (as documented) at patient's floor/unit and/or counseling patient: Coding Level of Care Code 46478 Subseq Hosp Care Lvl 2 Diagnoses Generalized weakness R53.1 Frequent falls R29.6 Hypertension I10 Hyperlipidemia E78.5 Metastatic squamous cell carcinoma C79.9 Diabetes E11.9 Depression F32.A
[2022-04-05 09:52] LABS: Hemoglobin 9.8 g/dL (14.0-18.0); Mean Corpuscular Hemoglobin 33.4 pg (25-34); Mean Corpuscular Hgb Conc 33.8 g/dL (32-36); Mean Platelet Volume 9.2 fL (7.4-10.4); Platelet Count 110 K/uL (130-400); RDW Standard Deviation 57.3 fL (36.4-46.3); Red Blood Count 2.93 M/uL (4.7-6.1); White Blood Count 1.99 K/uL (4.8-10.8)
[2022-04-05 09:57] LABS: Calcium 9.2 mg/dl (8.5-10.1); Magnesium 1.4 mg/dl (1.7-2.4); Potassium 3.7 mmol/L (3.5-5.1)
[2022-04-05 10:03] LABS: BUN Creatinine Ratio 12.5 (10-20); Creatinine Clr Calc Pharmacy 74.9 ml/min; Est GFR (Non-African American) 82.9 ml/min; Phosphorus 2.9 mg/dl (2.5-4.9)
--- NOTE | 2022-04-05 11:05 | XRay Report ---
XR shoulder RT min 2V routine HISTORY: 76 years-old Male right shoulder pain Acute right shoulder pain status post fall COMPARISON: 04/02/2022 TECHNIQUE: 3 views of the right shoulder FINDINGS: Mild glenohumeral and AC joint osteophyte is redemonstrated along with mild rotator cuff calcific ten dinosis. No acute fracture or dislocation. Left IJ [id number] catheter. IMPRESSION: No acute fracture or dislocation. ACT 112: Negative or not required by law. The above report was generated using voice recognition software. It may contain grammatical, syntax o r spelling errors. Electronically signed by: Mando Smallwood M.D. 04/05/2022 11:04 AM
[2022-04-05] MEDS: NICOTINE 21 MG/24 HR TDSY TD SCH (16:35)
[2022-04-05 17:05] LABS: Appearance Urine Clear (Clear); Bilirubin Urine Negative (Negative); Blood Urine Negative (Negative); Color Urine Dark Yellow; Glucose Urine UA Negative (Negative); Ketones Urine Negative (Negative); Leukocyte Esterase Urine Negative (Negative); Nitrite Urine Negative (Negative); Protein Urine Negative (Negative); Specific Gravity Urine 1.023 (1.000-1.030); Urobilinogen Urine Negative (Negative); pH Urine 5.5 (4.5-7.5)
[2022-04-06 06:27] LABS: Hematocrit (blood only) 28.1 % (42-52); Hemoglobin 9.4 g/dL (14.0-18.0); Mean Corpuscular Hemoglobin 33.6 pg (25-34); Mean Corpuscular Hgb Conc 33.5 g/dL (32-36); Mean Corpuscular Volume 100.4 fL (80-100); Mean Platelet Volume 9.5 fL (7.4-10.4); Platelet Count 110 K/uL (130-400); RDW Coefficient of Variation 15.4 % (11.5-14.5); RDW Standard Deviation 56.6 fL (36.4-46.3); White Blood Count 2.04 K/uL (4.8-10.8)
[2022-04-06 06:58] LABS: BUN Creatinine Ratio 14.3 (10-20); Creatinine Clr Calc Pharmacy 78.4 ml/min; Est GFR (African American) 97.9 ml/min; Est GFR (Non-African American) 84.5 ml/min; Potassium 3.8 mmol/L (3.5-5.1)
--- NOTE | 2022-04-06 08:01 | Electrocardiogram Report ---
Test Reason : Blood Pressure : / mmHG Vent. Rate : 082 BPM Atrial Rate : 082 BPM P-R Int : 150 ms QRS Dur : 090 ms QT Int : 376 ms P-R-T Axes : 058 -01 034 degrees QTc Int : 439 ms Normal sinus rhythm Normal ECG When compared with ECG of 02-APR-2022 04:01, Premature atrial complexes are no longer Present Confirmed by Isacc Winslow ([id number]) on 04/06/2022 8:00:45 AM Referred By: Confirmed By:Isacc Winslow
[2022-04-06] MEDS: buPROPion XL 150 MG TABCR PO SCH (08:50)
[2022-04-06] MEDS: ATORVASTATIN 40 MG TAB PO SCH (08:50)
[2022-04-06] MEDS: NICOTINE 21 MG/24 HR TDSY TD SCH (08:51)
[2022-04-06] MEDS: ESCITALOPRAM OXALATE 10 MG TAB PO SCH (08:51)
--- NOTE | 2022-04-06 14:42 | Hospitalist Progress Note ---
Date of Service April 06, 2022 Assessment & Plan (1) Generalized weakness: Plan: Generalized weakness in 76yo male with a history of HTN, HLD, CAD, CKD3, and metastatic squamous cell carcinoma. Patient with increasingly frequent falls over the past few weeks, and pr ogressive weakness in the setting of malignancy and chemotherapy Falls likely secondary to hypotension secondary to poor PO intake as well as deconditioning and malnutrition secondary to malignancy, chemotherapy, and poor PO intake; however, other causes of syncope not excluded Admit to med/surg Nutrition consult placed * Plan was to meet with hospice next week. * appears agreeable with it, however patient still has reservations. * Patient wants to be a DNR/DNI, but may consider restarting chemo. * PT/OT consult placed * Patient is agreeable to palliative care consult. * will discuss with Hematology if chemo has benefit given how weak patient is. (2) Frequent falls: Plan: Patient has been having frequent falls. May be related to his chemotherapy, advanced cancer, deconditioning. (3) Hypertension: Plan: Will hold his BP meds. will hold midorine. will monitor.BP at goal. (4) Hyperlipidemia: Plan: Patient will continue on statins. may consider holding this due to his advanced cancer. (5) Metastatic squamous cell carcinoma: Plan: Followed up with Dr. Mancia (6) Diabetes: Plan: Patient's home metformin held on admission Continue BSG checks, sliding-scale insulin, hypoglycemic protocol (7) Depression: Plan: Continue home escitalopram, bupropion Plan: Code: DNR/DNI Admission and Anticipated Discharge Date Admission Date: April 04, 2022 Subjective 76 yo male reports no new symptoms. Review of Systems Review of Systems: All systems reviewed & are unremarkable except as noted in HPI & below Physical Exam Constitutional: WD/WN, vitals as above Eyes: PERRL, conjunctivae normal, anicteric sclerae ENMT: external ear and nose normal, oropharynx normal Neck: trachea midline, no thyromegaly Respiratory: normal respiratory effort, lungs clear to auscultation Cardiovascular: RRR, no murmur, no edema Gastrointestinal (Abdomen): normal bowel sounds, soft, nontender, no hepatosplenomegaly Skin: no rashes, warm and dry (except for excortiations on his right face.) Neurologic: PERRL, EOMI, accommodation nl, no face palsy, no dysarthria Psychiatric: A+Ox3, euthymic affect Lymphatic: no cervical or axillary lymphadenopathy Results & Data Results & Data ([facility]) Vital Signs (Past 12 Hours) Vital Signs Temp Pulse Resp BP Pulse Ox 04/06/22 14:24 36.7 C 68 16 155/65 H 98 04/06/22 07:12 36.6 C 66 16 160/66 H 98 PG Care Time/CCT Total # of Minutes Spent Total Time Spent with Patient: Total time spent is greater than 50% in coordination of care (as documented) at patient's floor/unit and/or counseling patient: Coding Level of Care Code 78092 Subseq Hosp Care Lvl 2 Diagnoses Generalized weakness R53.1 Frequent falls R29.6 Hypertension I10 Hyperlipidemia E78.5 Metastatic squamous cell carcinoma C79.9 Diabetes E11.9 Depression F32.A
[2022-04-07] MEDS: HEPARIN 100 UNIT/ML 5ML FLUSH IV PRN (06:02)
[2022-04-07 06:29] LABS: Hematocrit (blood only) 27.8 % (42-52); Hemoglobin 9.5 g/dL (14.0-18.0); Mean Corpuscular Hemoglobin 33.8 pg (25-34); Mean Corpuscular Hgb Conc 34.2 g/dL (32-36); Mean Corpuscular Volume 98.9 fL (80-100); Mean Platelet Volume 9.5 fL (7.4-10.4); Platelet Count 110 K/uL (130-400); RDW Coefficient of Variation 15.5 % (11.5-14.5); RDW Standard Deviation 56.3 fL (36.4-46.3); Red Blood Count 2.81 M/uL (4.7-6.1); White Blood Count 2.65 K/uL (4.8-10.8)
[2022-04-07 06:47] LABS: BUN Creatinine Ratio 13.4 (10-20); Calcium 9.1 mg/dl (8.5-10.1); Creatinine Clr Calc Pharmacy 80.4 ml/min; Est GFR (African American) 98.9 ml/min; Est GFR (Non-African American) 85.3 ml/min; Potassium 3.9 mmol/L (3.5-5.1)
[2022-04-07 07:02] LABS: Magnesium 0.9 mg/dl (1.7-2.4); Phosphorus 3.3 mg/dl (2.5-4.9)
[2022-04-07] MEDS: ATORVASTATIN 40 MG TAB PO SCH (09:17)
[2022-04-07] MEDS: buPROPion XL 150 MG TABCR PO SCH (09:18)
[2022-04-07] MEDS: ESCITALOPRAM OXALATE 10 MG TAB PO SCH (09:18)
[2022-04-07] MEDS: MAGNESIUM SULFATE / D5W 1 GM/100 ML BAG IV SCH ×2 (09:19→11:18)
[2022-04-07] MEDS: NICOTINE 21 MG/24 HR TDSY TD SCH (09:19)
[2022-04-07] MEDS ORDERED: HEPARIN SOD 5,000 UNIT/0.5 ML VIAL SQ STA (14:16)
--- NOTE | 2022-04-07 17:06 | Hospitalist Progress Note ---
Date of Service April 07, 2022 Assessment & Plan (1) Generalized weakness: Plan: Generalized weakness in 76yo male with a history of HTN, HLD, CAD, CKD3, and metastatic squamous cell carcinoma. Patient with increasingly frequent falls over the past few weeks, and pr ogressive weakness in the setting of malignancy and chemotherapy Falls likely secondary to hypotension secondary to poor PO intake as well as deconditioning and malnutrition secondary to malignancy, chemotherapy, and poor PO intake; however, other causes of syncope not excluded Admit to med/surg Nutrition consult placed -DIscussed with Heme, will recomend chemotherapy holiday. -Patient will remain a DNR/DNI- -appreciate input from OT/PT -May consider further imaging in AM. (2) Frequent falls: Plan: Patient has been having frequent falls. May be related to his chemotherapy, advanced cancer, deconditioning. (3) Hypertension: Plan: Will hold his BP meds. will hold midorine. will monitor.BP at goal. (4) Hyperlipidemia: Plan: Patient will continue on statins. may consider holding this due to his advanced cancer. (5) Metastatic squamous cell carcinoma: Plan: Followed up with Dr. Mancia (6) Diabetes: Plan: Patient's home metformin held on admission Continue BSG checks, sliding-scale insulin, hypoglycemic protocol (7) Depression: Plan: Continue home escitalopram, bupropion Plan: Code: DNR/DNI Admission and Anticipated Discharge Date Admission Date: April 04, 2022 Subjective 76 yo male reports no new symptoms. Review of Systems Review of Systems: All systems reviewed & are unremarkable except as noted in HPI & below Physical Exam Constitutional: WD/WN, vitals as above Eyes: PERRL, conjunctivae normal, anicteric sclerae ENMT: external ear and nose normal, oropharynx normal Neck: trachea midline, no thyromegaly Respiratory: normal respiratory effort, lungs clear to auscultation Cardiovascular: RRR, no murmur, no edema Gastrointestinal (Abdomen): normal bowel sounds, soft, nontender, no hepatosplenomegaly Skin: no rashes, warm and dry (except for excortiations on his right face.) Neurologic: PERRL, EOMI, accommodation nl, no face palsy, no dysarthria Psychiatric: A+Ox3, euthymic affect Lymphatic: no cervical or axillary lymphadenopathy Results & Data Results & Data ([facility]) Vital Signs (Past 12 Hours) Vital Signs Temp Pulse Pulse Resp BP Pulse Ox 04/07/22 15:47 37.0 C 71 16 137/70 97 04/07/22 11:30 36.9 C 71 16 160/72 H 97 04/07/22 07:30 36.9 C 71 16 150/66 H 99 PG Care Time/CCT Total # of Minutes Spent Total Time Spent with Patient: Total time spent is greater than 50% in coordination of care (as documented) at patient's floor/unit and/or counseling patient: Coding Level of Care Code 40948 Subseq Hosp Care Lvl 2 Diagnoses Generalized weakness R53.1 Frequent falls R29.6 Hypertension I10 Hyperlipidemia E78.5 Metastatic squamous cell carcinoma C79.9 Diabetes E11.9 Depression F32.A Time Spent (min) 25
[2022-04-07] MEDS: ENOXAPARIN INJ 40 MG/0.4 ML SYR SQ SCH (17:34)
[2022-04-07] MEDS ORDERED: HEPARIN SOD 5,000 UNIT/0.5 ML VIAL SQ SCH (21:00)
--- NOTE | 2022-04-08 01:28 | Consultation Report ---
DATE OF SERVICE: 04/07/2022 REASON FOR CONSULT: Chemotherapy continuation. HISTORY OF PRESENT ILLNESS: Mr. Pressley is a 76-year-old gentleman who I had the pleasure of meeting alexander vergara for the first time. He had previously been followed by my previous colleague, Dr. Mancia, and mor e recently by [facility] for metastatic poorly [facility] he had previously been on immunotherapy with Keytruda, which was discontinued in 11/2021 due to disease progression. He was most recently started on carboplatin/paclitaxel on 11/13/2021. The jonny ent presented to the ED with frequent falls and fatigue. Oncology was consulted for overall prognosi s as well as whether or not the patient should continue with chemotherapy. During the patient's eval uation today, he seemed a bit confused, but denied any symptoms. HOME MEDICATIONS: 1. Oxycodone. 2. Bupropion. 3. Atorvastatin. 4. Metformin. 5. Escitalopram. 6. Midodrine. 7. Enalapril. 8. Zofran as needed. ALLERGIES: No known drug allergies. PAST MEDICAL HISTORY: 1. Squamous cell carcinoma. 2. GERD. 3. History of myocardial infarction. 4. CKD stage III. PAST SURGICAL HISTORY: History of triple bypass with 3 stents placement in 2015. FAMILY HISTORY: Nonsignificant. SOCIAL HISTORY: A [id number]-hpiq history of smoking. Denies illicit drug use or alcohol. REVIEW OF SYSTEMS: CONSTITUTIONAL: Denies weight loss, night sweats or fever. CARDIOVASCULAR: Denies chest pain, palpitations, or dizziness. RESPIRATORY: Denies shortness of breath, hemoptysis or cough. GASTROINTESTINAL: Denies diarrhea, hematemesis, melena, nausea or vomiting. GENITOURINARY: Unremarkable. NEUROLOGIC: Endorses occasional dizziness. PHYSICAL EXAMINATION: VITAL SIGNS: Blood pressure 137/70, heart rate 71, respiratory rate 16, temperature 37.0, and oxygen saturation 97% on room air. LABORATORY DATA: CBC on 04/07/2022, significant for white count of 2.65, hemoglobin 9.5, hematocrit 27.8, MCV of 98.9, platelet count of 110. Chemistry: Sodium 132, potassium 3.9, chloride 100, bicar bonate 23. IMPRESSION PLAN: 1. Metastatic squamous cell carcinoma, previously on pembrolizumab, now on carboplatin/paclitaxel. 2. Poor performance status. A pleasant 76-year-old gentleman with metastatic squamous cell carcinoma for which he most recently w as started on second line treatment with carboplatin/Taxol in 11/2021. Since then, patient has had d eclining performance status. His most recent CT restaging PET-CT in 01/2022 had revealed great respo nse to treatment. We would recommend restaging with CT chest, abdomen, pelvis. If continued respons e is seen, he would definitely benefit from chemotherapy holiday. If progression of disease seen on CT scan, would recommend considering palliative care/hospice at that time. Thank you for this consult. Oncology will follow the patient upon discharge from hospital. Please f eel free to call if you have any further questions. Job ID: [id number]
[2022-04-08] MEDS: HEPARIN 100 UNIT/ML 5ML FLUSH IV PRN (05:46)
[2022-04-08 05:53] LABS: Hematocrit (blood only) 28.2 % (42-52); Hemoglobin 9.6 g/dL (14.0-18.0); Mean Corpuscular Hemoglobin 33.1 pg (25-34); Mean Corpuscular Volume 97.2 fL (80-100); Mean Platelet Volume 8.6 fL (7.4-10.4); Platelet Count 102 K/uL (130-400); RDW Coefficient of Variation 15.7 % (11.5-14.5); RDW Standard Deviation 55.4 fL (36.4-46.3); White Blood Count 2.83 K/uL (4.8-10.8)
[2022-04-08 06:29] LABS: BUN Creatinine Ratio 15.2 (10-20); Calcium 9.1 mg/dl (8.5-10.1); Creatinine Clr Calc Pharmacy 83.4 ml/min; Est GFR (African American) 100.4 ml/min; Est GFR (Non-African American) 86.6 ml/min; Magnesium 1.7 mg/dl (1.7-2.4)
[2022-04-08] MEDS: ESCITALOPRAM OXALATE 10 MG TAB PO SCH (09:03)
[2022-04-08] MEDS: buPROPion XL 150 MG TABCR PO SCH (09:03)
[2022-04-08] MEDS: ATORVASTATIN 40 MG TAB PO SCH (09:03)
[2022-04-08] MEDS: ENOXAPARIN INJ 40 MG/0.4 ML SYR SQ SCH (09:03)
[2022-04-08] MEDS: NICOTINE 21 MG/24 HR TDSY TD SCH (09:04)
[2022-04-08] MEDS ORDERED: OPTIRAY 320 100ml IV ONE (15:21)
--- NOTE | 2022-04-08 16:12 | CT Scan Report ---
CT chest diagnostic w con CLINICAL HISTORY: reassess cancer. Squamous cell carcinoma of the skin. TECHNIQUE: Multidetector row helical CT of the chest was performed with intravenous contrast. Coronal and sagittal reformations were obtained. Automated dose lowering techniques and/or adjustment accord ing to patient size were utilized for this exam. CT DOSE: 743.08 mGy.cm Comparison: Comparison is made to CT radiation planning 11/25/[address] chest 08/30/2020 FINDINGS: Lungs and pleura: Atelectasis versus scarring is seen in the dependent portions of the lungs. Exam is limited by patient motion however there is partial visualization of tiny pulmonary nodules including the followin mm nodule in the right upper lobe (series 6 image 85), stable 3 mm nodule in the right upper lobe (image 86), not seen in prior exam. 5 mm nodule in the lingula (image 146), not seen on prior exam 3 mm pleural-based nodule in the right lower lobe (image 200), new 9 mm pleural-based nodule in the right lower lobe (image 217), new Heart and pericardium: Heart size is normal. No pericardial effusion. Vessels: Severe atherosclerotic changes in the aorta and coronary arteries. Mediastinum and kimberli: Esophageal thickening is noted. Chest wall and lower neck: Unremarkable. Abdomen: For findings below the diaphragm, please refer to CT of the abdomen dated the same. Bones: Degenerative changes in the thoracic spine. IMPRESSION: Multiple small pulmonary nodules as seen above. Although evaluation is limited by patient motion, con tinued follow-up is recommended, a CT chest can be performed in 6 months to assess for stability. ACT 112: Negative or not required by law. Electronically signed by: Julián Faria M.D. 04/08/2022 4:11 PM
--- NOTE | 2022-04-08 16:35 | CT Scan Report ---
CT abd pelvis IV con only CLINICAL HISTORY: reassess cancer . Reported squamous cell carcinoma skin. COMPARISON STUDY: No previous studies for comparison. CT DOSE: TECHNIQUE: Standard CT of the Abdomen and Pelvis was performed with IV contrast. A dose lowering mitzi hnique was utilized adhering to the principles of ALARA. Contrast Volume: Optiray 320, 94 ml. The patient did not receive oral contrast. FINDINGS: Abdominal cavity: There is no evidence for abdominal mass, adenopathy or ascites. Liver: There is slightly heterogeneous enhancement of the liver. There are multiple ill-defined low-a ttenuation lesions seen throughout the right lobe of the liver ranging in size from 6 to 14 mm. These findings are most characteristic of metastatic disease. Spleen: There is homogeneous attenuation of the splenic parenchyma. There is no enhancing mass lesion . Pancreas: There is a 7 mm sharply defined cyst within the mid body of the pancreas. There is homogene ous attenuation of the remaining pancreatic parenchyma. There is no evidence for mass lesion or perip ancreatic fluid collection. Gall Bladder: The gallbladder is distended with cholelithiasis. There is no definite CT evidence for acute cholecystitis. Adrenal glands: The adrenal glands are normal in size and attenuation. There is no evidence for enhan cing mass lesion. Kidneys: There is homogeneous attenuation of the renal parenchyma bilaterally. There is no evidence f or renal calculus or hydronephrosis. There is no evidence for enhancing mass. Bowel: There is a small hiatal hernia. The bowel loops are normally placed within the abdomen and pel vis without evidence for dilatation or obstruction. There is no evidence for mass lesion. There are n o inflammatory changes present. There is no evidence for free air. Bladder: The bladder is within normal limits with no evidence for focal mass, calculus or diverticulu m. : There is no evidence for pelvic mass or adenopathy. There is no evidence for pelvic ascites. Vasculature: There is no evidence for aneurysmal dilatation of the abdominal aorta. Atherosclerotic c alcification is present. Osseous structures: There is no acute osseous pathology. Degenerative changes are present within the spine. IMPRESSION: 1. Numerous ill-defined low-attenuation lesions within the liver most characteristic of metastatic di sease. 2. Small hiatal hernia. 3. Cholelithiasis. 4. Additional nonacute findings are delineated above. ACT 112: Negative or not required by law. Electronically signed by: Landry Thomas M.D. 04/08/2022 4:33 PM
--- NOTE | 2022-04-08 20:34 | Hospitalist Progress Note ---
Date of Service April 08, 2022 Assessment & Plan (1) Generalized weakness: Plan: Generalized weakness in 76yo male with a history of HTN, HLD, CAD, CKD3, and metastatic squamous cell carcinoma. Patient with increasingly frequent falls over the past few weeks, and pr ogressive weakness in the setting of malignancy and chemotherapy Falls likely secondary to hypotension secondary to poor PO intake as well as deconditioning and malnutrition secondary to malignancy, chemotherapy, and poor PO intake; however, other causes of syncope not excluded Admit to med/surg Nutrition consult placed -DIscussed with Heme, will recommend chemotherapy holiday. -Patient will remain a DNR/DNI- -appreciate input from OT/PT -CT chest, ABD/PEL with contrast obtained on 04/08 Updated . (2) Frequent falls: Plan: Patient has been having frequent falls. May be related to his chemotherapy, advanced cancer, deconditioning. (3) Hypertension: Plan: Will hold his BP meds. will hold midorine. will monitor.BP at goal. (4) Hyperlipidemia: Plan: Patient will continue on statins. may consider holding this due to his advanced cancer. (5) Metastatic squamous cell carcinoma: Plan: Followed up with Dr. Mancia (6) Diabetes: Plan: Patient's home metformin held on admission Continue BSG checks, sliding-scale insulin, hypoglycemic protocol (7) Depression: Plan: Continue home escitalopram, bupropion (8) Pancytopenia: Plan: * Chemotherapy-induced pancytopenia 76-year-old male who was undergoing chemotherapy for metastatic squamous cell carcinoma. will continue to monitor CBC. Plan: Code: DNR/DNI Admission and Anticipated Discharge Date Admission Date: April 04, 2022 Subjective Patient reports no new symptoms today. Review of Systems Review of Systems: All systems reviewed & are unremarkable except as noted in HPI & below Physical Exam Constitutional: WD/WN, vitals as above Eyes: PERRL, conjunctivae normal, anicteric sclerae ENMT: external ear and nose normal, oropharynx normal Neck: trachea midline, no thyromegaly Respiratory: normal respiratory effort, lungs clear to auscultation Cardiovascular: RRR, no murmur, no edema Gastrointestinal (Abdomen): normal bowel sounds, soft, nontender, no hepatosplenomegaly Skin: no rashes, warm and dry (except for excortiations on his right face.) Neurologic: PERRL, EOMI, accommodation nl, no face palsy, no dysarthria Psychiatric: A+Ox3, euthymic affect Lymphatic: no cervical or axillary lymphadenopathy Results & Data Results & Data ([facility]) Vital Signs (Past 12 Hours) Vital Signs Temp Pulse Resp BP Pulse Ox 04/08/22 15:48 36.9 C 84 18 114/66 98 PG Care Time/CCT Total # of Minutes Spent Total Time Spent with Patient: Total time spent is greater than 50% in coordination of care (as documented) at patient's floor/unit and/or counseling patient: Coding Level of Care Code 68219 Subseq Hosp Care Lvl 2 Diagnoses Generalized weakness R53.1 Frequent falls R29.6 Hypertension I10 Hyperlipidemia E78.5 Metastatic squamous cell carcinoma C79.9 Diabetes E11.9 Depression F32.A Pancytopenia D61.818
[2022-04-09] MEDS: HEPARIN 100 UNIT/ML 5ML FLUSH IV PRN (06:48)
[2022-04-09 07:08] LABS: Basophils # (auto) 0.01 K/uL (0-0.2); Basophils % (auto) 0.3 %; Eosinophils # (auto) 0.07 K/uL (0-0.5); Eosinophils % (auto) 2.2 %; Hematocrit (blood only) 27.9 % (42-52); Hemoglobin 9.3 g/dL (14.0-18.0); Immature Granulocytes # (auto) 0.02 K/uL (0.00-0.02); Immature Granulocytes % (auto) 0.6 %; Lymphocytes # (auto) 0.71 K/uL (1.2-3.4); Lymphocytes % (auto) 22.5 %; Mean Corpuscular Hemoglobin 32.6 pg (25-34); Mean Corpuscular Hgb Conc 33.3 g/dL (32-36); Mean Corpuscular Volume 97.9 fL (80-100); Mean Platelet Volume 9.3 fL (7.4-10.4); Monocytes # (auto) 0.71 K/uL (0.11-0.59); Monocytes % (auto) 22.5 %; Neutrophils # (auto) 1.64 K/uL (1.4-6.5); Neutrophils % (auto) 51.9 %; Platelet Count 117 K/uL (130-400); RDW Coefficient of Variation 15.8 % (11.5-14.5); RDW Standard Deviation 57.2 fL (36.4-46.3); Red Blood Count 2.85 M/uL (4.7-6.1); White Blood Count 3.16 K/uL (4.8-10.8)
[2022-04-09 07:30] LABS: BUN Creatinine Ratio 15.5 (10-20); Creatinine Clr Calc Pharmacy 78.4 ml/min; Est GFR (African American) 97.9 ml/min; Est GFR (Non-African American) 84.5 ml/min; Potassium 3.9 mmol/L (3.5-5.1)
[2022-04-09] MEDS: ENOXAPARIN INJ 40 MG/0.4 ML SYR SQ SCH (08:27)
[2022-04-09] MEDS: buPROPion XL 150 MG TABCR PO SCH (08:27)
[2022-04-09] MEDS: ATORVASTATIN 40 MG TAB PO SCH (08:27)
[2022-04-09] MEDS: NICOTINE 21 MG/24 HR TDSY TD SCH (08:28)
[2022-04-09] MEDS: ESCITALOPRAM OXALATE 10 MG TAB PO SCH (09:36)
[2022-04-09] MEDS: POLYETHYLENE (MIRALAX) 17 GM PACK PO SCH (10:46)
--- NOTE | 2022-04-09 22:42 | Hospitalist Progress Note ---
Date of Service April 09, 2022 Assessment & Plan (1) Generalized weakness: Plan: Generalized weakness in 76yo male with a history of HTN, HLD, CAD, CKD3, and metastatic squamous cell carcinoma. 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 reassess need for hospice depending on his response and wishes at that time. -Patient will remain a DNR/DNI- -appreciate input from OT/PT -CT chest, ABD/PEL with contrast obtained on 04/08 Updated . May benefit from MRI brain with contrast. Awaiting placement (2) Frequent falls: Plan: Patient has been having frequent falls. May be related to his chemotherapy, advanced cancer, deconditioning. (3) Hypertension: Plan: Will hold his BP meds. will hold midorine. will recommend holding these medications at discharge perhaps may consider low dose lisinopril will monitor. BP at goal. (4) Hyperlipidemia: Plan: Patient will continue on statins. may consider holding this due to his advanced cancer. (5) Metastatic squamous cell carcinoma: Plan: Followed up with Dr. Mancia (6) Diabetes: Plan: Patient's home metformin held on admission Continue BSG checks, sliding-scale insulin, hypoglycemic protocol (7) Depression: Plan: Continue home escitalopram, bupropion (8) Pancytopenia: Plan: * Chemotherapy-induced pancytopenia 76-year-old male who was undergoing chemotherapy for metastatic squamous cell carcinoma. will continue to monitor CBC. Plan: Code: DNR/DNI Admission and Anticipated Discharge Date Admission Date: April 04, 2022 Subjective Patient has no new complaints. Review of Systems Review of Systems: All systems reviewed & are unremarkable except as noted in HPI & below Physical Exam Constitutional: WD/WN, vitals as above Eyes: PERRL, conjunctivae normal, anicteric sclerae ENMT: external ear and nose normal, oropharynx normal Neck: trachea midline, no thyromegaly Respiratory: normal respiratory effort, lungs clear to auscultation Cardiovascular: RRR, no murmur, no edema Gastrointestinal (Abdomen): normal bowel sounds, soft, nontender, no hepatosplenomegaly Skin: no rashes, warm and dry (except for excortiations on his right face.) Neurologic: PERRL, EOMI, accommodation nl, no face palsy, no dysarthria Psychiatric: A+Ox3, euthymic affect Lymphatic: no cervical or axillary lymphadenopathy Results & Data Results & Data ([facility]) Vital Signs (Past 12 Hours) Vital Signs Temp Pulse Resp BP Pulse Ox 04/09/22 20:58 36.9 C 72 16 126/66 96 04/09/22 15:39 37.0 C 71 16 136/69 97 PG Care Time/CCT Total # of Minutes Spent Total Time Spent with Patient: Total time spent is greater than 50% in coordination of care (as documented) at patient's floor/unit and/or counseling patient: Coding Level of Care Code 02837 Subseq Hosp Care Lvl 3 Diagnoses Generalized weakness R53.1 Frequent falls R29.6 Hypertension I10 Hyperlipidemia E78.5 Metastatic squamous cell carcinoma C79.9 Diabetes E11.9 Depression F32.A Pancytopenia D61.818
[2022-04-10] MEDS: NICOTINE 21 MG/24 HR TDSY TD SCH (08:56)
[2022-04-10] MEDS: buPROPion XL 150 MG TABCR PO SCH (08:56)
[2022-04-10] MEDS: ESCITALOPRAM OXALATE 10 MG TAB PO SCH (08:56)
[2022-04-10] MEDS: ATORVASTATIN 40 MG TAB PO SCH (08:56)
[2022-04-10] MEDS: POLYETHYLENE (MIRALAX) 17 GM PACK PO SCH (08:57)
[2022-04-10] MEDS: ENOXAPARIN INJ 40 MG/0.4 ML SYR SQ SCH (08:57)
--- NOTE | 2022-04-10 19:17 | Hospitalist Progress Note ---
Date of Service April 10, 2022 Assessment & Plan (1) Generalized weakness: Plan: Generalized weakness in 76yo male with a history of HTN, HLD, CAD, CKD3, and metastatic squamous cell carcinoma. 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 reassess need for hospice depending on his response and wishes at that time. -Patient will remain a DNR/DNI- -CT chest, ABD/PEL with contrast obtained on 04/08 Updated at bedside today. MRI brain can be performed as outpatient if felt necessary for ongoing treatment. No acute need to acquire this. Remains medically stable for discharge pending placement (2) Frequent falls: Plan: Patient has been having frequent falls. Suspected secondary to his chemotherapy, advanced cancer, deconditioning. (3) Hypertension: Plan: Continue to hold enalapril on discharge, no ongoing need for this medications Does not appear to need midodrine - consider outpatient IV fluids if he is to continue on chemotherapy. (4) Hyperlipidemia: Plan: Prior LDL 39 - recommend discontinue statin in setting of severe deconditioning. (5) Metastatic squamous cell carcinoma: Plan: Followed up with oncology as outpatient (6) Diabetes: Plan: Patient's home metformin held on admission Continue BSG checks, sliding-scale insulin, hypoglycemic protocol (7) Depression: Plan: Continue home escitalopram, bupropion (8) Pancytopenia: Plan: * Chemotherapy-induced pancytopenia 76-year-old male who was undergoing chemotherapy for metastatic squamous cell carcinoma. will continue to monitor CBC. Plan: Code: DNR/DNI Medically stable for discharge pending placement at this time Admission and Anticipated Discharge Date Admission Date: April 04, 2022 Subjective No new medical concerns or questions. Awaiting placement at this time. Review of Systems Review of Systems: All systems reviewed & are unremarkable except as noted in Subjective Physical Exam Constitutional: WD/WN, vitals as above Respiratory: normal respiratory effort, lungs clear to auscultation Cardiovascular: RRR, no murmur, no edema Skin: right eyelid prior laceration looks well healed with escar over medial side. Sutures placed during ER visit on 04/02. Results & Data Results & Data ([facility]) Vital Signs (Past 12 Hours) Vital Signs Temp Pulse Resp BP Pulse Ox 04/10/22 15:38 37.1 C 76 18 145/72 H 97 PG Care Time/CCT Total # of Minutes Spent Total Time Spent with Patient: Total time spent is greater than 50% in coordination of care (as documented) at patient's floor/unit and/or counseling patient: Coding Level of Care Code 84593 Subseq Hosp Care Lvl 1 Diagnoses Generalized weakness R53.1 Frequent falls R29.6 Hypertension I10 Hyperlipidemia E78.5 Metastatic squamous cell carcinoma C79.9 Diabetes E11.9 Depression F32.A Pancytopenia D61.818
[2022-04-11] MEDS: ATORVASTATIN 40 MG TAB PO SCH (08:21)
[2022-04-11] MEDS: buPROPion XL 150 MG TABCR PO SCH (08:22)
[2022-04-11] MEDS: ENOXAPARIN INJ 40 MG/0.4 ML SYR SQ SCH (08:24)
[2022-04-11] MEDS: NICOTINE 21 MG/24 HR TDSY TD SCH (08:25)
[2022-04-11] MEDS: POLYETHYLENE (MIRALAX) 17 GM PACK PO SCH (08:25)
[2022-04-11] MEDS: ESCITALOPRAM OXALATE 10 MG TAB PO SCH (08:25)
--- NOTE | 2022-04-11 12:15 | XRay Report ---
XR chest 1V portable HISTORY: 76 years-old Male increased confusion ?PNA acute shortness breath in a patient with history of pneumonia COMPARISON: Chest CT 04/08/2022, chest radiographs 04/04/2022, PET CT 02/05/2022. TECHNIQUE: Portable AP view of the chest FINDINGS: The cardiac silhouette is enlarged. Atherosclerosis of the aorta. Left IJ [id number] catheter dist al tip is again noted within the expected location of the SVC. No pneumothorax, pleural effusion or o vert pulmonary edema. Bibasilar predominant reticular nodular opacities are redemonstrated. IMPRESSION: 1. Bibasilar predominant reticular nodular opacities are redemonstrated, progressed from the 02/05/2022 exam. An infectious or inflammatory pneumonitis is favored. 2. Discrete subcentimeter pulmonary nodules are better visualized on the chest CT study from 04/08/2022 . 3. Cardiomegaly without overt pulmonary edema. ACT 112: Negative or not required by law. The above report was generated using voice recognition software. It may contain grammatical, syntax o r spelling errors. Electronically signed by: Mando Smallwood M.D. 04/11/2022 12:13 PM
[2022-04-11 12:33] LABS: Albumin Globulin Ratio 1.2 (0.9-2); Albumin Level 3.5 gm/dl (3.4-5.0); Bilirubin,Total 0.6 mg/dl (0.2-1.0); Calcium 9.3 mg/dl (8.5-10.1); Creatinine Clr Calc Pharmacy 87.9 ml/min; Est GFR (African American) 102.6 ml/min; Est GFR (Non-African American) 88.5 ml/min; Globulin 2.9 gm/dl (2.5-4.0); Potassium 4.2 mmol/L (3.5-5.1); Total Protein 6.4 gm/dl (6.0-8.3)
[2022-04-11 12:38] LABS: Basophils # (auto) 0.01 K/uL (0-0.2); Basophils % (auto) 0.3 %; Eosinophils # (auto) 0.09 K/uL (0-0.5); Eosinophils % (auto) 2.3 %; Hematocrit (blood only) 28.8 % (42-52); Hemoglobin 9.7 g/dL (14.0-18.0); Immature Granulocytes # (auto) 0.02 K/uL (0.00-0.02); Immature Granulocytes % (auto) 0.5 %; Lymphocytes # (auto) 0.76 K/uL (1.2-3.4); Lymphocytes % (auto) 19.5 %; Mean Corpuscular Hemoglobin 33.1 pg (25-34); Mean Corpuscular Hgb Conc 33.7 g/dL (32-36); Mean Corpuscular Volume 98.3 fL (80-100); Mean Platelet Volume 9.4 fL (7.4-10.4); Monocytes % (auto) 15.4 %; Neutrophils # (auto) 2.42 K/uL (1.4-6.5); Platelet Count 111 K/uL (130-400); RDW Coefficient of Variation 15.8 % (11.5-14.5); RDW Standard Deviation 56.8 fL (36.4-46.3); Red Blood Count 2.93 M/uL (4.7-6.1)
[2022-04-11 15:44] LABS: Influenza A virus by PCR Negative (Neg); Influenza B virus by PCR Negative (Neg); RSV by PCR Negative (Neg); SARS CoV2 RNA(COVID-19) InHosp NEGATIVE (Negative)
--- NOTE | 2022-04-11 18:40 | Hospitalist Progress Note ---
Date of Service April 11, 2022 Assessment & Plan (1) Generalized weakness: Plan: Generalized weakness in 76yo male with a history of HTN, HLD, CAD, CKD3, and metastatic squamous cell carcinoma. 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 reassess need for hospice depending on his response and wishes at that time. -Patient will remain a DNR/DNI- -CT chest, ABD/PEL with contrast obtained on 04/08 Updated at bedside today. MRI brain can be performed as outpatient if felt necessary for ongoing treatment. No acute need to acquire this. Remains medically stable for discharge pending placement (2) Altered mental state: Plan: Will repeat infective workup given his 's concerns. CBC - stable pancytopenia. Procalcitonin negative CXR - ?progression of bibasilar reticular nodular opacities progressed from /. No area of focal consolidation. Mentioned on prior CXR in addition with no significant findings on CT chest at that time. UA pending (3) Frequent falls: Plan: Patient has been having frequent falls. Suspected secondary to his chemotherapy, advanced cancer, deconditioning. (4) Hypertension: Plan: Continue to hold enalapril on discharge, no ongoing need for this medications Does not appear to need midodrine - consider outpatient IV fluids if he is to continue on chemotherapy. (5) Hyperlipidemia: Plan: Prior LDL 39 - recommend discontinue statin in setting of severe deconditioning. (6) Metastatic squamous cell carcinoma: Plan: Followed up with oncology as outpatient (7) Diabetes: Plan: Patient's home metformin held on admission Continue BSG checks, sliding-scale insulin, hypoglycemic protocol (8) Depression: Plan: Continue home escitalopram, bupropion (9) Pancytopenia: Plan: * Chemotherapy-induced pancytopenia 76-year-old male who was undergoing chemotherapy for metastatic squamous cell carcinoma. will continue to monitor CBC. Plan: Code: DNR/DNI Medically stable for discharge pending placement at this time Admission and Anticipated Discharge Date Admission Date: April 04, 2022 Subjective No new medical concerns or questions from patient. Awaiting placement at this time. His called in and felt he was more confused today than previously. From my perspective he appears similar to were he was yesterday. He is orientated to place and person and aware of his diagnosis and waiting for placement at this time. Stitches removed this morning. Review of Systems Review of Systems: All systems reviewed & are unremarkable except as noted in Subjective Physical Exam Constitutional: WD/WN, vitals as above Respiratory: normal respiratory effort, lungs clear to auscultation Cardiovascular: RRR, no murmur, no edema Gastrointestinal (Abdomen): normal bowel sounds, soft, nontender, no hepatosplenomegaly Musculoskeletal: no cyanosis or clubbing, extremities motor strength 5/5 Skin: Stitches removed with good scar formation underneath this Neurologic: moves all extremities and awake; not confused Psychiatric: Orientation: alert, oriented to person and oriented to place Results & Data Results & Data ([facility]) Vital Signs (Past 12 Hours) Vital Signs Temp Pulse Resp BP Pulse Ox 04/11/22 15:23 36.9 C 86 18 102/63 94 04/11/22 07:16 36.9 C 72 16 147/57 H 98 PG Care Time/CCT Total # of Minutes Spent Total Time Spent with Patient: Total time spent is greater than 50% in coordination of care (as documented) at patient's floor/unit and/or counseling patient: Coding Level of Care Code 63361 Subseq Hosp Care Lvl 1 Diagnoses Generalized weakness R53.1 Frequent falls R29.6 Hypertension I10 Hyperlipidemia E78.5 Metastatic squamous cell carcinoma C79.9 Diabetes E11.9 Depression F32.A Pancytopenia D61.818 Altered mental state R41.82
[2022-04-12 03:04] LABS: Appearance Urine Clear (Clear); Bilirubin Urine Negative (Negative); Blood Urine Negative (Negative); Color Urine Dark Yellow; Glucose Urine UA Negative (Negative); Ketones Urine Trace (Negative); Leukocyte Esterase Urine Negative (Negative); Nitrite Urine Negative (Negative); Protein Urine Negative (Negative); Specific Gravity Urine 1.025 (1.000-1.030); Urobilinogen Urine Positive (Negative)
[2022-04-12] MEDS: ENOXAPARIN INJ 40 MG/0.4 ML SYR SQ SCH (08:33)
[2022-04-12] MEDS: ESCITALOPRAM OXALATE 10 MG TAB PO SCH (08:34)
[2022-04-12] MEDS: NICOTINE 21 MG/24 HR TDSY TD SCH (08:34)
[2022-04-12] MEDS: POLYETHYLENE (MIRALAX) 17 GM PACK PO SCH (08:34)
[2022-04-12] MEDS: ATORVASTATIN 40 MG TAB PO SCH (08:34)
[2022-04-12] MEDS: buPROPion XL 150 MG TABCR PO SCH (08:34)
--- NOTE | 2022-04-12 17:42 | Hospitalist Progress Note ---
Date of Service April 12, 2022 Assessment & Plan (1) Generalized weakness: Plan: Generalized weakness in 76yo male with a history of HTN, HLD, CAD, CKD3, and metastatic squamous cell carcinoma. 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 reassess need for hospice depending on his response and wishes at that time. -CT CAP with contrast obtained on 04/08 - metastatic disease to the liver and multiple nodules in lungs Pending rehab placement at this time. (2) Altered mental state: Plan: Ongoing concern from his (although he appears stable the last 2 days to me) therefore given liver mets and up trending LFTs will get ammonia levels and repeat CMP with AM labs and get MRI brain w/wo IV contrast this admission UA negative for infection, urobilinogen likely reflective of liver mets (3) Frequent falls: Plan: Patient has been having frequent falls. Suspected secondary to his chemotherapy, advanced cancer, deconditioning. (4) Hypertension: Plan: Continue to hold enalapril on discharge, no ongoing need for this medications Does not appear to need midodrine either - consider outpatient IV fluids if he is to continue on chemotherapy. (5) Hyperlipidemia: Plan: Prior LDL 39 - recommend discontinue statin in setting of severe deconditioning. (6) Metastatic squamous cell carcinoma: Plan: Followed up with oncology as outpatient (7) Diabetes: Plan: Hemoglobin A1C 5.7 in January Recommend discontinuation of metformin, BSG checks and switching to regular diet. (8) Depression: Plan: Continue home escitalopram, bupropion (9) Pancytopenia: Plan: * Chemotherapy-induced pancytopenia 76-year-old male who was undergoing chemotherapy for metastatic squamous cell carcinoma. will continue to monitor CBC. Plan: Code: DNR/DNI Medically stable for discharge pending placement at this time Admission and Anticipated Discharge Date Admission Date: April 04, 2022 Subjective No new acute concerns or questions from patient. Discussed care with his again over the phone. She will be able to visit t omorrow. Again concerned about his confusion but unclear how acute this is as her son mentioned he has been declining for some time. Mainly he is saying odd things to her such as when is she off work and thinks she works at the hospital. Review of Systems Review of Systems: All systems reviewed & are unremarkable except as noted in Subjective Physical Exam Constitutional: WD/WN, vitals as above Respiratory: normal respiratory effort, lungs clear to auscultation Cardiovascular: RRR, no murmur, no edema Gastrointestinal (Abdomen): normal bowel sounds, soft, nontender, no hepatosplenomegaly Musculoskeletal: no cyanosis or clubbing, extremities motor strength 5/5 Skin: Stitches removed with good scar formation underneath this Neurologic: moves all extremities and awake; not confused Psychiatric: Orientation: alert, oriented to person and oriented to place Results & Data Results & Data ([facility]) Vital Signs (Past 12 Hours) Vital Signs Temp Pulse Resp BP Pulse Ox 04/12/22 17:30 36.8 C 88 16 133/81 96 04/12/22 07:25 37 C 76 16 118/65 95 PG Care Time/CCT Total # of Minutes Spent Total Time Spent with Patient: Total time spent is greater than 50% in coordination of care (as documented) at patient's floor/unit and/or counseling patient: Coding Level of Care Code 95472 Subseq Hosp Care Lvl 2 Diagnoses Generalized weakness R53.1 Altered mental state R41.82 Frequent falls R29.6 Hypertension I10 Hyperlipidemia E78.5 Metastatic squamous cell carcinoma C79.9 Diabetes E11.9 Depression F32.A Pancytopenia D61.818
[2022-04-12] MEDS: HEPARIN 100 UNIT/ML 5ML FLUSH IV PRN (18:25)
[2022-04-13 07:52] LABS: Basophils # (auto) 0.02 K/uL (0-0.2); Basophils % (auto) 0.5 %; Eosinophils # (auto) 0.14 K/uL (0-0.5); Eosinophils % (auto) 3.2 %; Hematocrit (blood only) 29.2 % (42-52); Hemoglobin 9.7 g/dL (14.0-18.0); Immature Granulocytes # (auto) 0.02 K/uL (0.00-0.02); Immature Granulocytes % (auto) 0.5 %; Lymphocytes # (auto) 0.75 K/uL (1.2-3.4); Lymphocytes % (auto) 17.3 %; Mean Corpuscular Hemoglobin 32.9 pg (25-34); Mean Corpuscular Hgb Conc 33.2 g/dL (32-36); Mean Platelet Volume 9.2 fL (7.4-10.4); Monocytes # (auto) 0.67 K/uL (0.11-0.59); Monocytes % (auto) 15.4 %; Neutrophils # (auto) 2.74 K/uL (1.4-6.5); Neutrophils % (auto) 63.1 %; Platelet Count 109 K/uL (130-400); RDW Coefficient of Variation 16.2 % (11.5-14.5); RDW Standard Deviation 58.6 fL (36.4-46.3); Red Blood Count 2.95 M/uL (4.7-6.1); White Blood Count 4.34 K/uL (4.8-10.8)
[2022-04-13] MEDS: POLYETHYLENE (MIRALAX) 17 GM PACK PO SCH (08:00)
[2022-04-13] MEDS: ESCITALOPRAM OXALATE 10 MG TAB PO SCH (08:00)
[2022-04-13] MEDS: ENOXAPARIN INJ 40 MG/0.4 ML SYR SQ SCH (08:00)
[2022-04-13] MEDS: NICOTINE 21 MG/24 HR TDSY TD SCH (08:00)
[2022-04-13] MEDS: buPROPion XL 150 MG TABCR PO SCH (08:01)
[2022-04-13 08:15] LABS: Albumin Globulin Ratio 1.2 (0.9-2); Albumin Level 3.5 gm/dl (3.4-5.0); BUN Creatinine Ratio 19.3 (10-20); Bilirubin Direct 0.2 mg/dl (0-0.2); Bilirubin,Total 0.8 mg/dl (0.2-1.0); Calcium 9.5 mg/dl (8.5-10.1); Creatinine Clr Calc Pharmacy 79.4 ml/min; Est GFR (African American) 98.4 ml/min; Est GFR (Non-African American) 84.9 ml/min; Globulin 2.9 gm/dl (2.5-4.0); Potassium 4.3 mmol/L (3.5-5.1); Total Protein 6.4 gm/dl (6.0-8.3)
[2022-04-13] MEDS: HEPARIN 100 UNIT/ML 5ML FLUSH IV PRN (10:30)
[2022-04-13] MEDS ORDERED: GADOBUTROL 65ML VIAL IV ONE (17:25)
--- NOTE | 2022-04-13 20:44 | Magnetic Resonance Report ---
MR brain wo/w con CLINICAL HISTORY: acute confusion, known SCC. COMPARISON STUDY: 02/23/2022 TECHNIQUE: Multiplanar multisequence images of the brain were performed before and after Gadavist, 8 .2 mL of IV contrast. Diffusion weighted imaging and ADC mapping was also performed. FINDINGS: Extra-axial space: There is no evidence for a subdural hematoma, There are no extra-axial fluid letty ections. Ventricles and cisterns: The ventricles are mildly dilated bilaterally. There is no evidence for mid line shift or mass effect. Parenchyma: On noncontrast images, there is no evidence for an acute hemorrhage or infarct. No acute diffusion abnormalities are noted on diffusion weighted imaging or ADC mapping. There is normal cook -white differentiation. There is mild cerebral cortical atrophy present. There is bright signal seen on FLAIR weighted sequences within the centrum semiovale and periventricular white matter characteris tic of remote small vessel disease. The sulci and gyri appear normal without effacement. The midline structures are unremarkable. The posterior fossa structures appear normal. On postcontrast images, there are numerous enhancing mass lesion seen throughout both cerebral hemisp heres are present in the presence of metastatic disease. Enhancing lesions are also present within th e cerebellar hemispheres bilaterally. Osseous structures: The paranasal sinuses are well aerated. The mastoid air cells are well aerated. Soft tissues: No focal soft tissue abnormalities are identified. IMPRESSION: 1. Numerous enhancing metastatic lesions throughout the brain and cerebellum. 2. Cerebral cortical atrophy and remote small vessel disease are also present. ACT 112: Negative or not required by law. Electronically signed by: Landry Thomas M.D. 04/13/2022 8:42 PM
--- NOTE | 2022-04-14 07:01 | Hospitalist Progress Note ---
Date of Service April 13, 2022 Assessment & Plan (1) Generalized weakness: Plan: Generalized weakness in 76yo male with a history of HTN, HLD, CAD, CKD3, and metastatic squamous cell carcinoma. 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 reassess need for hospice depending on his response and wishes at that time. -CT CAP with contrast obtained on 04/08 - metastatic disease to the liver and multiple nodules in lungs MRI brain pending Pending rehab placement at this time. (2) Altered mental state: Plan: Ongoing concern from his (although he appears stable the last 3 days to me) Ammonia level normal. UA negative for infection, urobilinogen likely reflective of liver mets Concerning rising LFTs for aggressive metastatic cancer Awaiting MRI brain (3) Frequent falls: Plan: Patient has been having frequent falls. Suspected secondary to his chemotherapy, advanced cancer, deconditioning. (4) Hypertension: Plan: Continue to hold enalapril on discharge, no ongoing need for this medications Does not appear to need midodrine either - consider outpatient IV fluids if he is to continue on chemotherapy. (5) Hyperlipidemia: Plan: Prior LDL 39 - recommend discontinue statin in setting of severe deconditioning. (6) Metastatic squamous cell carcinoma: Plan: Followed up with oncology as outpatient (7) Diabetes: Plan: Hemoglobin A1C 5.7 in January Recommend discontinuation of metformin, BSG checks and switching to regular diet. (8) Depression: Plan: Continue home escitalopram, bupropion (9) Pancytopenia: Plan: * Chemotherapy-induced pancytopenia 76-year-old male who was undergoing chemotherapy for metastatic squamous cell carcinoma. will continue to monitor CBC. Plan: Code: DNR/DNI Medically stable for discharge pending placement at this time Admission and Anticipated Discharge Date Admission Date: April 04, 2022 Subjective No acute change in patient cognition from yesterday. Able to mobilize to the bathroom with assistance. No acute concerns or questions from the patient. Review of Systems Review of Systems: All systems reviewed & are unremarkable except as noted in Subjective Physical Exam Constitutional: WD/WN, vitals as above + frail appearing Respiratory: normal respiratory effort, lungs clear to auscultation Cardiovascular: RRR, no murmur, no edema Gastrointestinal (Abdomen): normal bowel sounds, soft, nontender, no hepatosplenomegaly Musculoskeletal: no cyanosis or clubbing, extremities motor strength 5/5 Neurologic: moves all extremities and awake; not confused Psychiatric: Orientation: alert, oriented to person and oriented to place Results & Data Results & Data ([facility]) Vital Signs (Past 12 Hours) Vital Signs Temp Pulse Resp BP Pulse Ox Pulse Ox 04/13/22 22:50 97 04/13/22 21:23 36.8 C 73 17 136/76 97 PG Care Time/CCT Total # of Minutes Spent Total Time Spent with Patient: Total time spent is greater than 50% in coordination of care (as documented) at patient's floor/unit and/or counseling patient: Coding Level of Care Code 84770 Subseq Hosp Care Lvl 1 Diagnoses Generalized weakness R53.1 Altered mental state R41.82 Frequent falls R29.6 Hypertension I10 Hyperlipidemia E78.5 Metastatic squamous cell carcinoma C79.9 Diabetes E11.9 Depression F32.A Pancytopenia D61.818
[2022-04-14] MEDS: buPROPion XL 150 MG TABCR PO SCH (08:16)
[2022-04-14] MEDS: ESCITALOPRAM OXALATE 10 MG TAB PO SCH (08:16)
[2022-04-14] MEDS: ENOXAPARIN INJ 40 MG/0.4 ML SYR SQ SCH (08:16)
--- NOTE | 2022-04-14 08:17 | Hospitalist Progress Note ---
Date of Service April 14, 2022 Assessment & Plan (1) Generalized weakness: Plan: Generalized weakness in 76yo male with a history of HTN, HLD, CAD, CKD3, and metastatic squamous cell carcinoma. 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 Numerous enhancing metastatic lesions throughout the brain and cerebellum. 2. Cerebral cortical atrophy and remote small vessel disease are also present. Need to discuss with family/patient these findings as this may change course/may want to take home/consider hospice/palliative Prior provider discussed with Heme/onc, recommending chemotherapy holiday. reassess need for hospice depending on his response and wishes at that time. --> Spoke with josé miguel Nelson for RT. Consult for Dr Bui placed, but wait until AM (messaged him, family needing time to discuss) Pending rehab placement at this time, however family needing to discuss. Considerations for home/hospice/palliative RT vs pursuing short term rehab/transition. (2) Brain lesion: Plan: suspected cause for repeated falls/weakness MRI january without lesions, as noted was done without contrast Rad/onc consulted as above (3) Altered mental state: Plan: Ongoing concern from his (although he appears stable the last 3 days to me) Ammonia level normal. UA negative for infection, urobilinogen likely reflective of liver mets Concerning rising LFTs for aggressive metastatic cancer MRI Brain as above, however patient does seem alert/oriented. Updated POA , continued discussions in AM (4) Frequent falls: Plan: Patient has been having frequent falls. Suspected secondary to his chemotherapy, advanced cancer, deconditioning. now with new mets to brain (5) Hypertension: Plan: Continue to hold enalapril on discharge, no ongoing need for this medications Does not appear to need midodrine either - consider outpatient IV fluids if he is to continue on chemotherapy. (6) Hyperlipidemia: Plan: Prior LDL 39 - recommend discontinue statin in setting of severe deconditioning. (7) Metastatic squamous cell carcinoma: Plan: Followed up with oncology as outpatient (8) Diabetes: Plan: Hemoglobin A1C 5.7 in January Recommend discontinuation of metformin, BSG checks and switching to regular diet. (9) Depression: Plan: Continue home escitalopram, bupropion (10) Pancytopenia: Plan: * Chemotherapy-induced pancytopenia 76-year-old male who was undergoing chemotherapy for metastatic squamous cell carcinoma. will continue to monitor CBC. Plan: Code: DNR/DNI Continued inpatient stay/discussion with family Messaged palliative as well regarding ongoing discussion/goals of care Admission and Anticipated Discharge Date Admission Date: April 04, 2022 Subjective patient seen around lunchtime, fatigued, tired, not much appetite. denies pain anywhere. no fever/chills, chest pain, shortness of breath, abdominal pain, nausea. states he's been feeling poor for quite some time. discussed MRI results and patient wishes moving forward. agreeable to update . Knows year 2021, alert to person/place/time, intermittent forgetfulness. Updated son GAVIN this afternoon. Will update Flaca (patient's ) who will be visiting plus or minus himself/brother tomorrow and would like time to talk about this with them regarding plan/RT/home and arranging that/palliative vs pursuing rehab/therapy. Palliative to follow peripherally. Questions/concerns addressed at this time. Review of Systems Review of Systems: All systems reviewed & are unremarkable except as noted in HPI & below Physical Exam Physical Exam: General: WD, cachectic, frail elderly male resting in room, laying on his side, NAD , general pallor, fatigued appearing HEENT: excoriations to scalp, no ecchymosis/hematoma, pupils equal/reactive, trachea midline, mm DRY Chest: A-port, dressing c/d/i Resp: CTAB, diminished, poor inspiratory effort, 98% on RA CV: RRR, no m/r/g, no edema/calf tenderness GI: +BS, soft, non-tender MSK/Neuro: moves all extremities, CN intact grossly, +clonus, pulses palpable, strength equal b/l LE Psych: AOx3, pleasant and cooperative Skin: lesions to buttocks/back, R shoulder (see wound imaging, improved), no drainage Results & Data Results & Data ([facility]) Vital Signs (Past 12 Hours) Vital Signs Temp Pulse Resp BP BP Pulse Ox Pulse Ox 04/14/22 07:44 36.5 C 71 16 151/70 H 98 04/13/22 22:50 97 04/13/22 21:23 36.8 C 73 17 136/76 97 Laboratory Results 04/14/22 04/14/22 04/14/22 Range/Units 09:10 09:10 08:31 WBC 5.26 (4.8-10.8) K/uL RBC 3.02 L (4.7-6.1) M/uL Hgb 10.1 L (14.0-18.0) g/dL Hct 30.2 L (42-52) % MCV 100.0 (80-100) fL MCH 33.4 (25-34) pg MCHC 33.4 (32-36) g/dL RDW Std Deviation 57.6 H (36.4-46.3) fL RDW Coeff of Miriam 15.8 H (11.5-14.5) % Plt Count 120 L (130-400) K/uL MPV 9.4 (7.4-10.4) fL Sodium 135 L (136-145) mmol/L Potassium 4.4 (3.5-5.1) mmol/L Chloride 102 (98-107) mmol/L Carbon Dioxide 26 (21-32) mmol/L Anion Gap 7 (3-11) BUN 15 (6-23) mg/dl Creatinine 0.90 (0.6-1.4) mg/dl Est Cr Clr Drug Dosing 73.2 ml/min Est GFR ( Amer) 95.1 ml/min Est GFR (Non-Af Amer) 82.1 ml/min BUN/Creatinine Ratio 16.7 (10-20) Glucose 118 H (70-99(Fasting)) mg/dl POC Glucose 87 (70-99) mg/dl Calcium 9.8 (8.5-10.1) mg/dl Magnesium 1.7 (1.7-2.4) mg/dl Total Bilirubin 0.8 (0.2-1.0) mg/dl AST 54 H (13-39) U/L ALT 76 H (7-52) U/L Alkaline Phosphatase 203 H (34-104) U/L Total Protein 6.7 (6.0-8.3) gm/dl Albumin 3.6 (3.4-5.0) gm/dl Globulin 3.1 (2.5-4.0) gm/dl Albumin/Globulin Ratio 1.2 (0.9-2) Diagnostic Findings Brain MRI 04/13/22 17:50 MR brain wo/w con CLINICAL HISTORY: acute confusion, known SCC. COMPARISON STUDY: 02/23/2022 TECHNIQUE: Multiplanar multisequence images of the brain were performed before and after Gadavist, 8.2 mL of IV contrast. Diffusion weighted imaging and ADC mapping was also performed. FINDINGS: Extra-axial space: There is no evidence for a subdural hematoma, There are no extra-axial fluid collections. Ventricles and cisterns: The ventricles are mildly dilated bilaterally. There is no evidence for midline shift or mass effect. Parenchyma: On noncontrast images, there is no evidence for an acute hemorrhage or infarct. No acute diffusion abnormalities are noted on diffusion weighted imaging or ADC mapping. There is normal cook-white differentiation. There is mild cerebral cortical atrophy present. There is bright signal seen on FLAIR weighted sequences within the centrum semiovale and periventricular white matter characteristic of remote small vessel disease. The sulci and gyri appear normal without effacement. The midline structures are unremarkable. The posterior fossa structures appear normal. On postcontrast images, there are numerous enhancing mass lesion seen throughout both cerebral hemispheres are present in the presence of metastatic disease. Enhancing lesions are also present within the cerebellar hemispheres bilaterally. Osseous structures: The paranasal sinuses are well aerated. The mastoid air cells are well aerated. Soft tissues: No focal soft tissue abnormalities are identified. IMPRESSION: 1. Numerous enhancing metastatic lesions throughout the brain and cerebellum. 2. Cerebral cortical atrophy and remote small vessel disease are also present. ACT 112: Negative or not required by law. Electronically signed by: Landry Thomas M.D. 04/13/2022 8:42 PM PG Care Time/CCT Total # of Minutes Spent Total Time Spent with Patient: Total time spent is greater than 50% in coordination of care (as documented) at patient's floor/unit and/or counseling patient: Coding Level of Care Code 54582 Subseq Hosp Care Lvl 3 Diagnoses Generalized weakness R53.1 Altered mental state R41.82 Frequent falls R29.6 Hypertension I10 Hyperlipidemia E78.5 Metastatic squamous cell carcinoma C79.9 Diabetes E11.9 Depression F32.A Pancytopenia D61.818 Brain lesion G93.9
[2022-04-14] MEDS: NICOTINE 21 MG/24 HR TDSY TD SCH (08:18)
[2022-04-14] MEDS: POLYETHYLENE (MIRALAX) 17 GM PACK PO SCH (08:19)
[2022-04-14] MEDS: HEPARIN 100 UNIT/ML 5ML FLUSH IV PRN ×2 (09:20→12:46)
[2022-04-14 09:38] LABS: Hematocrit (blood only) 30.2 % (42-52); Hemoglobin 10.1 g/dL (14.0-18.0); Mean Corpuscular Hemoglobin 33.4 pg (25-34); Mean Corpuscular Hgb Conc 33.4 g/dL (32-36); Mean Platelet Volume 9.4 fL (7.4-10.4); Platelet Count 120 K/uL (130-400); RDW Coefficient of Variation 15.8 % (11.5-14.5); RDW Standard Deviation 57.6 fL (36.4-46.3); Red Blood Count 3.02 M/uL (4.7-6.1); White Blood Count 5.26 K/uL (4.8-10.8)
[2022-04-14 10:01] LABS: Albumin Globulin Ratio 1.2 (0.9-2); Albumin Level 3.6 gm/dl (3.4-5.0); BUN Creatinine Ratio 16.7 (10-20); Bilirubin,Total 0.8 mg/dl (0.2-1.0); Calcium 9.8 mg/dl (8.5-10.1); Creatinine Clr Calc Pharmacy 73.2 ml/min; Est GFR (African American) 95.1 ml/min; Est GFR (Non-African American) 82.1 ml/min; Globulin 3.1 gm/dl (2.5-4.0); Magnesium 1.7 mg/dl (1.7-2.4); Potassium 4.4 mmol/L (3.5-5.1); Total Protein 6.7 gm/dl (6.0-8.3)
--- NOTE | 2022-04-14 12:28 | Radiation OncologyConsultation ---
Date of Consultation April 14, 2022 Assessment & Plan (1) Brain metastases: (2) Metastatic squamous cell carcinoma: Assessment: Mr. Pressley is a 76-year-old gentleman who presents with metastatic cutaneous squamous cell carcinoma. The patient was previously treated with palliative radiation therapy to the right chest wall which finished in December 2021 (3000 cGy, 10 fractions). The patient has subsequently been on carboplatin/Taxol chemotherapy at [facility]. The patient was admitted to the hospital with a history of falls and weakness. He did have an MRI of the brain completed on 04/13/2022 which reveals widespread metastatic disease. I am now seeing the patient in consultation to discuss the role of radiation therapy. Treatment Options: 1. Palliative whole brain radiation therapy. 5-10 fractions. 2. Best supportive care with consideration of dexamethasone. I did speak with the patient's son, Russel Pressley, who is the power of counter supervisor. He stated he still needed talk with the family prior to making any final decisions or having further questions. Plan: 1. No plan for radiation therapy at this point. Willing to consider short course of palliative external beam radiation therapy if the patient wants to consider treatment however it would not be unreasonable for the patient to opt for hospice given his overall performance status. 2. Primary team to indicate if the patient and/or family has interest in consideration for radiation therapy which can be done in the outpatient setting. 3. Patient and family encouraged to call us with any further questions or concerns. Rationale/Explanation of Treatment: I explained the indications, alternatives, benefits, risks and side effects of external beam radiation therapy. I explain the most common side effects including but not limited to skin erythema, skin break down, hair loss, radiation necrosis, fatigue, short-term memory loss, decreased neurocognitive performance, cerebral edema, hearing loss, damage to cochlea structures, seizures, loss of sensory and or motor function. I explained the treatment planning process and what to expect before during and after treatment. The patient understands and would be willing to consent to treatment. I have explained to the patient that there is an increased risk of overlap from the previous course of radiation therapy and the current course of radiation therapy which can increase the risk of all acute and late side effects of radiation therapy. The patient and son had multiple questions which were answered to their full satisfaction. Thank you for allowing us to participate in the care of this patient. This chart was completed in part utilizing Dragon Speech Voice Recognition software. Attempts were made to minimize the grammatical errors, random word insertions, pronoun errors and incomplete sentences. Any formal questions or concerns about the content, text or information contained within the body of this dictation should be directly addressed to the provider for clarification. Freddy Bui MD Department of Radiation Oncology [facility] History of Present Illness Attending Physician: Wolfgang Mckinney MD History of Present Illness 03/21/2021. Skin, right medial clavicular area, shave biopsy. 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 04/2021. Patient presents to dermatology squamous cell carcinoma involving the right medial clavicular region. 07/04/2021. Skin, right mid back, punch biopsy. Recurrent deeply invasive and poorly differentiated squamous cell carcinoma. 07/24/2021. PET/CT. IMPRESSION: There is a cluster of large cutaneous/subcutaneous hypermetabolic lesions in the right posterior upper chest faria with multiple satellite subcutaneous fat lesions, and ipsilateral widespread axillary lymphadenopathy, consistent with tumor of cutaneous origin with regional and satellite spread. There is distant metastatic disease to the hilar lymph nodes, multiple metastases to the liver and likely the muscle. 08/06/2021. Medical oncology consultation with Dr. Carty at [facility]. Referral to medical oncology in [place]. Consider palliative radiation therapy. 09/05/2021. Electrodissection and curettage destruction of squamous cell carcinoma involving left upper back by Dr. Ibarra. 10/23/2021. Dermatology follow-up with Dr. Ibarra. Dr. Ibarra plans to discuss case with Dr. Mancia to discuss role of palliative radiation therapy. 10/31/2021. MRI brain. IMPRESSION: 1. The exam is moderately compromised by motion artifact. 2. No evidence for intracranial metastatic disease. 3. Old infarcts as described above. 11/06/2021. Medical oncology follow-up with Dr. Mancia. Recommendation is to stop Keytruda and switch to carboplatin/Taxol weekly given progression of disease. 12/09/2021 to 12/20/2021. Palliative external beam radiation therapy to right chest wall. 3000 cGy. 10 fractions. 300 cGy per fraction. Concurrent weekly carboplatin/taxol. 02/05/2022. PET/CT. IMPRESSION: 1. Overall positive response to treatment. Adenopathy in the right neck, the right axilla, and the right subpectoral region has decreased in size and shows only faint residual FDG activity as compared to 07/24/2021. No pathologically enlarged or FDG avid mediastinal or hilar nodes are identified. 2. Soft tissue lesions in the right lower back/posterolateral chest wall have also significantly decreased in size and FDG uptake as compared to previous. 3. Findings suggest treated hepatic metastatic disease with a pseudocirrhosis appearance. No FDG avid hepatic lesions are identified. 4. There is an acute to subacute right anterior fifth rib fracture which shows FDG uptake. 5. There are numerous tiny pulmonary nodules which were not clearly seen previously. These are pathologically indeterminant and too small for PET characterization. A follow-up chest CT in 3 months time is recommended for reassessment. 6. A right adrenal nodule shows faint FDG activity but meets CT criteria for a fat-containing adenoma. 7. Mild wall thickening is suggested throughout the colon with associated FDG activity. Correlate clinically for evidence of a nonspecific colitis. 8. Cholelithiasis. 9. Additional findings as above. 03/05/2022. Medical oncology follow-up at [facility]. Continue with carboplatin/Taxol chemotherapy. 04/04/2022. Patient admitted to hospital due to generalized weakness. 05/01/2022. CT head. IMPRESSION: 1. No acute intracranial findings. No change in appearance of the brain. 2. Left forehead contusion. No calvarial fracture. 04/08/2022. Medical oncology consultation with Dr. Stephens. Inpatient setting. Recommendation is for repeat CT of chest/abdomen/pelvis. If patient has continued improvement, continue chemotherapy in the outpatient setting. If patient has progression of disease, consider palliative care/hospice. 04/08/2022. CT chest. IMPRESSION: Multiple small pulmonary nodules as seen above. Although evaluation is limited by patient motion, continued follow-up is recommended, a CT chest can be performed in 6 months to assess for stability. 04/08/2022. CT of abdomen/pelvis. IMPRESSION: 1. Numerous ill-defined low- attenuation lesions within the liver most characteristic of metastatic disease. 2. Small hiatal hernia. 3. Cholelithiasis. 4. Additional nonacute findings are delineated above. 04/13/2022. MRI brain. IMPRESSION: 1. Numerous enhancing metastatic lesions throughout the brain and cerebellum. 2. Cerebral cortical atrophy and remote small vessel disease are also present. Allergies Allergy/AdvReac Type Severity Reaction Status Date / Time No Known Drug Allergies Allergy Unknown Verified 04/02/22 07:08 Home Medications Medication Instructions Recorded Confirmed Type ondansetron HCl 8 mg tablet 8 mg PO Q8H PRN 11/20/21 04/04/22 History oxycodone 5 mg tablet 5 mg PO .Q4-6H PRN tab 11/20/21 04/04/22 History bupropion HCl 150 mg 24 hr tablet, 150 mg PO QAM 11/26/21 04/04/22 History extended release loperamide 2 mg capsule (Imodium 2 mg PO Q6H PRN 12/09/21 04/04/22 History A-D) atorvastatin 80 mg tablet 80 mg PO DAILY 02/21/22 04/04/22 History metformin 1,000 mg tablet 1,000 mg PO DAILY 02/21/22 04/04/22 History escitalopram oxalate 10 mg tablet 10 mg PO DAILY #30 tab 02/28/22 04/04/22 Rx midodrine 10 mg tablet 10 mg PO TID #90 tab 02/28/22 04/04/22 Rx enalapril maleate 5 mg tablet 5 mg PO DAILY #90 tab 03/04/22 04/04/22 Rx (Vasotec) lancing device with lancets kit #1 ea 03/20/22 Rx (Accu-Chek Soft Dev Lancets) Patient History Medical History (Updated 04/14/22 @ 13:06 by Freddy Bui MD) Actinic keratosis Adenomatous polyp Angioma Brain metastases CAD (coronary artery disease) s/p CABG x 3 approx 2014 in [place], does not follow with cardiology at this time per PAT RN records Depression Diabetes Erectile dysfunction Fall Fatigue GERD (gastroesophageal reflux disease) Hearing difficulty History of nonmelanoma skin cancer Hyperlipidemia Hypertension Lentigines Metastatic squamous cell carcinoma Myocardial infarction HX 2014 Neoplasm of uncertain behavior of skin Seborrheic keratoses Smoker Stage 3 chronic kidney disease Stroke HX 2014 Surgical History H/O heart surgery Triple bypass with 3 stents- [place] -approx 2014 History of colonoscopy Port-A-Cath in place (12/04/21) Insertion of Access Port in Left Jugular Vein with Fluoroscopy(Left) - Kelechi Suarez DO, FACS 12/04/2021 S/P wisdom tooth extraction Family History Brother Cardiac arrest Father , 88yo Myocardial infarction Mother , 90yo Myocardial infarction Hypertension Daughter Cancer brain Brother No problems noted. Son No problems noted. Son No problems noted. Daughter Brain cancer Denies family history of Ovarian cancer Prostate cancer Breast cancer Colorectal cancer Social History Smoking Status: Smoker, status unknown Tobacco Type: Cigarettes Age Started Using Tobacco: 15; packs per day: 1; Years Smoked: 61; Cigarettes Per Day: 10 CIGS A DAY; Second Hand Exposure: No; Hx Alcohol Use: No Hx Substance Use: No Preferred Language: Latvian Communication Ability: Impaired Visual Impairment: No Limitations Hearing Ability: Hard of Hearing Field [employer] Technical Officer Required: No Beliefs That Will Affect Care: None marital status: Current Living Situation: Spouse Current Living Situation Comment: Lives with his girlfriend? current occupational status: retired current occupation: Worked in [employer] How many Children do You have: 4 Feels Safe at Home: Yes Childhood Exposure to Second-Hand Smoke: Yes caffeine: Yes during the past year weight has: increased > 10 lbs Dental Care, Regularly: No Physical Activity Frequency: Does not Exercise Seatbelt Use: always Sunscreen Use: Yes Assistive Devices: Walker Review of Systems Review of Systems: All systems reviewed & are unremarkable except as noted in HPI & below Physical Exam Constitutional: WD/WN, vitals as above Chest (Breasts): Additional Comments: Right chest wall where patient previously had radiation therapy shows excellent response. Hypopigmentation noticed. Wound patch still over right posterior chest wall lesion. Neurologic: patellar DTR's 2+ bilat, sensation intact and PERRL, EOMI, accommodation nl, no face palsy, no dysarthria Psychiatric: A+Ox3, euthymic affect Time Spent Attending I spent 15 minutes in preparation for this consultation including reviewing all the clinical records, reviewing laboratory studies, pathology reports and imaging results. I spent 25 minutes with direct face to face interaction with the patient and/or family including performing a physical exam and answering all questions. I spent 15 minutes documenting this patient's visit. I spent 5 minutes speaking with the following people regarding this patient's care: Patient's son.
[2022-04-15] MEDS: HEPARIN 100 UNIT/ML 5ML FLUSH IV PRN (06:52)
[2022-04-15 07:17] LABS: Hematocrit (blood only) 29.3 % (42-52); Hemoglobin 9.7 g/dL (14.0-18.0); Mean Corpuscular Hemoglobin 32.6 pg (25-34); Mean Corpuscular Hgb Conc 33.1 g/dL (32-36); Mean Corpuscular Volume 98.3 fL (80-100); Mean Platelet Volume 8.9 fL (7.4-10.4); Platelet Count 101 K/uL (130-400); RDW Coefficient of Variation 15.9 % (11.5-14.5); RDW Standard Deviation 57.5 fL (36.4-46.3); Red Blood Count 2.98 M/uL (4.7-6.1)
[2022-04-15 07:41] LABS: Albumin Globulin Ratio 1.1 (0.9-2); Albumin Level 3.4 gm/dl (3.4-5.0); BUN Creatinine Ratio 18.5 (10-20); Bilirubin,Total 0.8 mg/dl (0.2-1.0); Calcium 9.5 mg/dl (8.5-10.1); Creatinine Clr Calc Pharmacy 81.3 ml/min; Est GFR (African American) 99.4 ml/min; Est GFR (Non-African American) 85.7 ml/min; Globulin 3.1 gm/dl (2.5-4.0); Potassium 4.2 mmol/L (3.5-5.1); Total Protein 6.5 gm/dl (6.0-8.3)
--- NOTE | 2022-04-15 08:05 | Hospitalist Progress Note ---
Date of Service April 15, 2022 Assessment & Plan (1) Generalized weakness: Plan: Generalized weakness in 76yo male with a history of HTN, HLD, CAD, CKD3, and metastatic squamous cell carcinoma. 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 Numerous enhancing metastatic lesions throughout the brain and cerebellum. 2. Cerebral cortical atrophy and remote small vessel disease are also present. Discussed with palliative, rad/onc consulted for RT -- patient does NOT want any RT at this time Son traveling to [facility], to discuss with his other brother and patient SO regarding palliative/hospice at d/c Initially planned for [place] [facility], no bed this week Will need to look into logistics at home given several steps but if going palliative may be feasible? Will reach back out in AM Palliiative seen today -- patient again voiced needing to let sons know goodbye and that he does not want any further treatment CM following (2) Brain lesion: Plan: suspected cause for repeated falls/weakness MRI january without lesions, as noted was done without contrast Rad/onc consulted as above, no plans for RT per patient wishes (3) Altered mental state: Plan: Ongoing concern from his (although he appears stable the last 3 days to me) Ammonia level normal. UA negative for infection, urobilinogen likely reflective of liver mets Concerning rising LFTs for aggressive metastatic cancer MRI Brain as above, however patient does seem alert/oriented. Updated POA , continued discussions in AM (4) Frequent falls: Plan: Patient has been having frequent falls. Suspected secondary to his chemotherapy, advanced cancer, deconditioning. now with new mets to brain (5) Hypertension: Plan: Continue to hold enalapril on discharge, no ongoing need for this medications Does not appear to need midodrine either - consider outpatient IV fluids if he is to continue on chemotherapy but given above no need at this time (6) Hyperlipidemia: Plan: Prior LDL 39 - recommend discontinue statin in setting of severe deconditioning. not given while inpatient (7) Metastatic squamous cell carcinoma: Plan: Followed up with oncology as outpatient (8) Diabetes: Plan: Hemoglobin A1C 5.7 in January Recommend discontinuation of metformin, BSG checks and switching to regular diet. (9) Depression: Plan: Continue home escitalopram, bupropion (10) Pancytopenia: Plan: * Chemotherapy-induced pancytopenia 76-year-old male who was undergoing chemotherapy for metastatic squamous cell carcinoma. Plan: Code: DNR/DNI Continued inpatient stay/discussion with family Messaged palliative as well regarding ongoing discussion/goals of care, seen today If needing SNF, no bed at this time. Other son traveling to the area. If able to find living arrangements suitable/provide rx for equipment however per palliative discussion with other son appearing wanting skilled facility given repeat falls in home environment but need to talk w/ patient SO ( I spoke with her evening 04/14 and she was in agreement for comfort) Admission and Anticipated Discharge Date Admission Date: April 04, 2022 Subjective patient evaluated this morning, sitting up in bed watching TV Seen by palliative this morning, voicing he would not like to pursue radiation at this time. Palliative to discuss w/ family later today and CM helping with arrange SNF at d/c given logistics at home. No pain, fever, chest pain, shortness of breath, abdominal pain or other symptoms concerning at this time. Has coke at bedside and no needs at this time. Review of Systems Review of Systems: All systems reviewed & are unremarkable except as noted in HPI & below Physical Exam Physical Exam: General: WD, cachectic, frail elderly male resting in room, laying on his side, NAD , general pallor, fatigued appearing HEENT: excoriations to scalp, no ecchymosis/hematoma, pupils equal/reactive, trachea midline, mm DRY Chest: A-port, dressing c/d/i Resp: CTAB, diminished, poor inspiratory effort, 98% on RA CV: RRR, no m/r/g, no edema/calf tenderness GI: +BS, soft, non-tender MSK/Neuro: moves all extremities, CN intact grossly, +clonus, pulses palpable, strength equal b/l LE Psych: AOx3, pleasant and cooperative Skin: lesions to buttocks/back, R shoulder (see wound imaging, improved), no drainage Results & Data Results & Data ([facility]) Vital Signs (Past 12 Hours) Vital Signs Temp Pulse Pulse Resp BP Pulse Ox 04/15/22 07:41 36.9 C 68 16 134/72 99 04/14/22 23:36 36.9 C 69 16 134/68 99 PG Care Time/CCT Total # of Minutes Spent Total Time Spent with Patient: Total time spent is greater than 50% in coordination of care (as documented) at patient's floor/unit and/or counseling patient: Coding Level of Care Code 68425 Subseq Hosp Care Lvl 1 Diagnoses Generalized weakness R53.1 Brain lesion G93.9 Altered mental state R41.82 Frequent falls R29.6 Hypertension I10 Hyperlipidemia E78.5 Metastatic squamous cell carcinoma C79.9 Diabetes E11.9 Depression F32.A Pancytopenia D61.818
[2022-04-15] MEDS: buPROPion XL 150 MG TABCR PO SCH (08:25)
[2022-04-15] MEDS: NICOTINE 21 MG/24 HR TDSY TD SCH (08:25)
[2022-04-15] MEDS: ENOXAPARIN INJ 40 MG/0.4 ML SYR SQ SCH (08:25)
[2022-04-15] MEDS: ESCITALOPRAM OXALATE 10 MG TAB PO SCH (08:25)
[2022-04-15] MEDS: POLYETHYLENE (MIRALAX) 17 GM PACK PO SCH (08:26)
--- NOTE | 2022-04-15 10:56 | Palliative Care Consultation ---
Date of Consultation April 15, 2022 Assessment & Plan (1) Generalized weakness: With metastatic SCC, he has declined PT in the last few days. (2) Palliative care encounter: I talked with Mr. Pressley about his understanding of his illness. He realizes that the cancer has spread and is aware of treatment options. He tells me that he is not interested in further treatment. "I want a recess". He understands that his time is short. When I asked him what was most important to him at this time, he told me that he wanted to sit down and talk with his boys. "I want to talk to them and say goodbye, tell them I love them". He denies fears or worries about his dying time, though he is concerned about where he will be living. He recognizes that he will need more care than could be provided at home. He is agreeable to SNF placement. I also spoke with his son, Russel, who is POA. He tells me that his brother is en route from [facility] and will be arriving later today. He wants to sit down and talk with his brother and Scott's SO about the plan moving forward. He is concerned that with recurrent falls and numerous steps, his father would not be safe in his current home. He has considered finding them another place to stay but is more leaning toward SNF placement with focus of care on comfort. We talked about fci and possible PT at SNF, though he is concerned that Scott would not participate in therapy. We also talked about hospice support as well. His preference is for [facility], but per case management, beds are on hold at [facility] at the moment. I talked with Russel about the conversation that I had with his father. He supports his wish for focus on comfort rather than further treatment. I offered family meeting this afternoon but he is unsure when his brother will arrive and whether they will be in today. Palliative care will follow. (3) Metastatic squamous cell carcinoma: History of Present Illness Reason for Consultation: goals of care Requesting Physician: Dr. Viramontes Attending Physician: Wolfgang Mckinney MD History of Present Illness 76 yo gentleman with history of metastatic SCC of the skin in right clavicular lesion. Biopsy done in July of last year showed deeply invasive, poorly differentiated SCC. Metastatic disease was found on PET/CT at time of diagnosis. He had been seeing Dr. Mancia and was started on Keytruda and subsequently rotated to carboplatin/taxol in November of this year. Though he initially had good response to treatment on staging in January, more recent imaging shows numerous metastatic lesions in the brain and liver. He lives in an apartment with his SO and was admitted with progressive weakness and recurrent falls at home, including a fall down several steps. He has been seen by Dr. Stephens and by Dr. Bui to discuss possible treatment options. We have been consulted to assist with goals of care. Mr. Pressley is awake and alert at time of visit. He denies any pain, dyspnea, nausea or discomfort. Allergies Allergy/AdvReac Type Severity Reaction Status Date / Time No Known Drug Allergies Allergy Unknown Verified 04/02/22 07:08 Home Medications Medication Instructions Recorded Confirmed Type ondansetron HCl 8 mg tablet 8 mg PO Q8H PRN 11/20/21 04/04/22 History oxycodone 5 mg tablet 5 mg PO .Q4-6H PRN tab 11/20/21 04/04/22 History bupropion HCl 150 mg 24 hr tablet, 150 mg PO QAM 11/26/21 04/04/22 History extended release loperamide 2 mg capsule (Imodium 2 mg PO Q6H PRN 12/09/21 04/04/22 History A-D) atorvastatin 80 mg tablet 80 mg PO DAILY 02/21/22 04/04/22 History metformin 1,000 mg tablet 1,000 mg PO DAILY 02/21/22 04/04/22 History escitalopram oxalate 10 mg tablet 10 mg PO DAILY #30 tab 02/28/22 04/04/22 Rx midodrine 10 mg tablet 10 mg PO TID #90 tab 02/28/22 04/04/22 Rx enalapril maleate 5 mg tablet 5 mg PO DAILY #90 tab 03/04/22 04/04/22 Rx (Vasotec) lancing device with lancets kit #1 ea 03/20/22 Rx (Accu-Chek Soft Dev Lancets) Patient History Medical History Actinic keratosis Adenomatous polyp Angioma Brain metastases CAD (coronary artery disease) s/p CABG x 3 approx 2014 in [place], does not follow with cardiology at this time per PAT RN records Depression Diabetes Erectile dysfunction Fall Fatigue GERD (gastroesophageal reflux disease) Hearing difficulty History of nonmelanoma skin cancer Hyperlipidemia Hypertension Lentigines Metastatic squamous cell carcinoma Myocardial infarction HX 2014 Neoplasm of uncertain behavior of skin Seborrheic keratoses Smoker Stage 3 chronic kidney disease Stroke HX 2014 Surgical History H/O heart surgery Triple bypass with 3 stents- [place] -approx 2014 History of colonoscopy Port-A-Cath in place (12/04/21) Insertion of Access Port in Left Jugular Vein with Fluoroscopy(Left) - Kelechi Suarez DO, FACS 12/04/2021 S/P wisdom tooth extraction Family History Brother Cardiac arrest Father , 88yo Myocardial infarction Mother , 90yo Myocardial infarction Hypertension Daughter Cancer brain Brother No problems noted. Son No problems noted. Son No problems noted. Daughter Brain cancer Denies family history of Ovarian cancer Prostate cancer Breast cancer Colorectal cancer Social History Smoking Status: Smoker, status unknown Tobacco Type: Cigarettes Age Started Using Tobacco: 15; packs per day: 1; Years Smoked: 61; Cigarettes Per Day: 10 CIGS A DAY; Second Hand Exposure: No; Hx Alcohol Use: No Hx Substance Use: No Preferred Language: Maori Communication Ability: Impaired Visual Impairment: No Limitations Hearing Ability: Hard of Hearing Biomedical Service Engineer Required: No Beliefs That Will Affect Care: None marital status: Current Living Situation: Spouse Current Living Situation Comment: Lives with his girlfriend? current occupational status: retired current occupation: Worked in [employer] How many Children do You have: 4 Feels Safe at Home: Yes Childhood Exposure to Second-Hand Smoke: Yes caffeine: Yes during the past year weight has: increased > 10 lbs Dental Care, Regularly: No Physical Activity Frequency: Does not Exercise Seatbelt Use: always Sunscreen Use: Yes Assistive Devices: Walker Review of Systems Review of Systems: ESAS Pain 0/3 Dyspnea 0/3 Nausea 0/3 Fatigue 2/3 Drowsiness 0/3 PPS 50% Physical Exam Constitutional: no acute distress ENMT: Mouth: oral mucous membranes not dry Respiratory: normal respiratory effort; no labored breathing Cardiovascular: Extremities: no edema Musculoskeletal: Extremities: + muscle atrophy Skin: warm and dry Neurologic: awake; not confused Psychiatric: Affect: + depressed affect Results & Data ([facility]) Vital Signs (Past 12 Hours) Vital Signs Temp Pulse Pulse Resp BP Pulse Ox 04/15/22 07:41 98.4 F 68 16 134/72 99 04/14/22 23:36 98.4 F 69 16 134/68 99 PG Care Time/CCT Total # of Minutes Spent Total Time Spent with Patient: Total time spent is greater than 50% in coordination of care (as documented) at patient's floor/unit and/or counseling patient: Coding Level of Care Code 39359 Initial Inpt Care Lvl 2 Diagnoses Generalized weakness R53.1 Palliative care encounter Z51.5 Metastatic squamous cell carcinoma C79.9
[2022-04-16] MEDS: HEPARIN 100 UNIT/ML 5ML FLUSH IV PRN (08:28)
--- NOTE | 2022-04-16 08:40 | Hospitalist Progress Note ---
Date of Service April 16, 2022 Assessment & Plan (1) Generalized weakness: Plan: Generalized weakness in 76yo male with a history of HTN, HLD, CAD, CKD3, and metastatic squamous cell carcinoma. 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 Numerous enhancing metastatic lesions throughout the brain and cerebellum. 2. Cerebral cortical atrophy and remote small vessel disease are also present. Discussed with palliative, rad/onc consulted for RT -- patient does NOT want any RT at this time Son traveling to [facility], to discuss with his other brother and patient SO regarding palliative/hospice at d/c Initially planned for [facility], no bed this week Will need to look into logistics at home given several steps but if going palliative may be feasible? Will reach back out in AM Palliiative seen 04/15 -- patient again voiced needing to let sons know goodbye and that he does not want any further treatment CM following, son visited 04/16 but unable to connect. Voicemail left. SNF placement longer term/transition to hospice vs home with hospice if able to arrange logistically Patient does NOT want any further Lovenox --> as moving to comfort can d/c knowing risks (2) Brain lesion: Plan: suspected cause for repeated falls/weakness MRI january without lesions, as noted was done without contrast Rad/onc consulted as above, no plans for RT per patient wishes (3) Altered mental state: Plan: Ongoing concern from his (although he appears stable the last 3 days to me) Ammonia level normal. UA negative for infection, urobilinogen likely reflective of liver mets Concerning rising LFTs for aggressive metastatic cancer MRI Brain as above, however patient does seem alert/oriented. Updated POA , continued discussions when he returns call regarding discharge plan (4) Frequent falls: Plan: Patient has been having frequent falls. Suspected secondary to his chemotherapy, advanced cancer, deconditioning. now with new mets to brain (5) Hypertension: Plan: Continue to hold enalapril on discharge, no ongoing need for this medications Does not appear to need midodrine either - consider outpatient IV fluids if he is to continue on chemotherapy but given above no need at this time (6) Hyperlipidemia: Plan: Prior LDL 39 - recommend discontinue statin in setting of severe deconditioning. not given while inpatient (7) Metastatic squamous cell carcinoma: Plan: Followed up with oncology as outpatient (8) Diabetes: Plan: Hemoglobin A1C 5.7 in January Recommend discontinuation of metformin, BSG checks and switching to regular diet. (9) Depression: Plan: Continue home escitalopram, bupropion (10) Pancytopenia: Plan: * Chemotherapy-induced pancytopenia 76-year-old male who was undergoing chemotherapy for metastatic squamous cell carcinoma. Plan: Code: DNR/DNI Continued inpatient stay awaiting determination home w/ hospice vs [facility] (~3mo expectancy and pending if able to arrange supplies at home, otherwise will pursue [facility]) Admission and Anticipated Discharge Date Admission Date: April 04, 2022 Subjective evaluated this morning doing alright, no acute needs at this time, disappointed about still being in the hospital and wanting his to visit. discussed living arrangement logistics proving difficult but working on this but may need SNF depending. He is aware, little disheartened overall by situation appropriately but knows where he is/year/that he has cancer/etc. No fever/chills/chest pain/shortness of breath. Continued weakness, drinking coca-cola/meals as wanted for comfort. Does not want to continue the Lovenox, and as moving towards comfort will discontinue this at this time. questions/concerns addressed. will see if/when visiting today/reach out to for continued placement needs. Son visited this afternoon, attempted to visit/discuss with POA. He left prior to arrival. Called phone and left voicemail. He told he would be willing to carry dad into home, however patient unsure of final decision, and seems to be ok with SNF if needed for additional care in the home. Will continue inpatient stay. Review of Systems Review of Systems: All systems reviewed & are unremarkable except as noted in HPI & below Physical Exam Physical Exam: General: WD, cachectic, frail elderly male resting in room, laying on his side, NAD , general pallor, fatigued appearing HEENT: excoriations to scalp, no ecchymosis/hematoma, pupils equal/reactive, trachea midline, mm DRY Chest: A-port, dressing c/d/i Resp: CTAB, diminished, poor inspiratory effort, 98% on RA CV: RRR, no m/r/g, no edema/calf tenderness GI: +BS, soft, non-tender MSK/Neuro: moves all extremities, CN intact grossly, +clonus, pulses palpable, strength equal b/l LE Psych: Alert/oriented to person/place/year, cooperative but depressed affect Skin: lesions to buttocks/back, R shoulder (see wound imaging, improved), no drainage Results & Data Results & Data ([facility]) Vital Signs (Past 12 Hours) Vital Signs Temp Pulse Resp BP Pulse Ox Pulse Ox 04/16/22 07:30 36.8 C 72 16 135/75 97 04/15/22 22:00 99 04/15/22 21:54 37 C 82 16 118/61 99 PG Care Time/CCT Total # of Minutes Spent Total Time Spent with Patient: Total time spent is greater than 50% in coordination of care (as documented) at patient's floor/unit and/or counseling patient: Coding Level of Care Code 95600 Subseq Hosp Care Lvl 1 Diagnoses Generalized weakness R53.1 Brain lesion G93.9 Altered mental state R41.82 Frequent falls R29.6 Hypertension I10 Hyperlipidemia E78.5 Metastatic squamous cell carcinoma C79.9 Diabetes E11.9 Depression F32.A Pancytopenia D61.818
[2022-04-16] MEDS: ESCITALOPRAM OXALATE 10 MG TAB PO SCH (08:57)
[2022-04-16] MEDS: buPROPion XL 150 MG TABCR PO SCH (08:57)
[2022-04-16] MEDS: NICOTINE 21 MG/24 HR TDSY TD SCH (08:57)
[2022-04-16] MEDS: ENOXAPARIN INJ 40 MG/0.4 ML SYR SQ SCH (08:58)
[2022-04-16] MEDS: POLYETHYLENE (MIRALAX) 17 GM PACK PO SCH (08:58)
--- NOTE | 2022-04-17 08:30 | Hospitalist Progress Note ---
Date of Service April 17, 2022 Assessment & Plan (1) Generalized weakness: Plan: Generalized weakness in 76yo male with a history of HTN, HLD, CAD, CKD3, and metastatic squamous cell carcinoma. 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 Numerous enhancing metastatic lesions throughout the brain and cerebellum. 2. Cerebral cortical atrophy and remote small vessel disease are also present. Discussed with palliative, rad/onc consulted for RT -- patient does NOT want any RT at this time Son traveling to [facility], to discuss with his other brother and patient SO regarding palliative/hospice at d/c Initially planned for [place] care, no bed this week Will need to look into logistics at home given several steps but if going palliative may be feasible? Will reach back out in AM Palliiative seen 04/15 -- patient again voiced needing to let sons know goodbye and that he does not want any further treatment CM following, son visited 04/16 but unable to connect. Voicemail left. SNF placement longer term/transition to hospice vs home with hospice if able to arrange logistically Patient does NOT want any further Lovenox --> as moving to comfort can d/c knowing risks discussed with raya (andrew not called back yet and working both jobs today) and they have been in agreement to get scott home and will assist with the transportation. alerted CM and they will work on getting hospice agency/supplies delivered if able to arrange, possible d/c home tomorrow Not having any pain/nausea/need for medications at this time (2) Brain lesion: Plan: suspected cause for repeated falls/weakness MRI january without lesions, as noted was done without contrast Rad/onc consulted as above, no plans for RT per patient wishes (3) Altered mental state: Plan: Ongoing concern from his (although he appears stable the last 3 days to me) Ammonia level normal. UA negative for infection, urobilinogen likely reflective of liver mets Concerning rising LFTs for aggressive metastatic cancer MRI Brain as above, however patient does seem alert/oriented. Planning for home with hospice (4) Frequent falls: Plan: Patient has been having frequent falls. Suspected secondary to his chemotherapy, advanced cancer, deconditioning. now with new mets to brain (5) Hypertension: Plan: Continue to hold enalapril on discharge, no ongoing need for this medications Does not appear to need midodrine either - No IV fluids as moving towards comfort (6) Hyperlipidemia: Plan: Prior LDL 39 - recommend discontinue statin in setting of severe deconditioning. not given while inpatient (7) Metastatic squamous cell carcinoma: Plan: hospice at d/c planned given above (8) Diabetes: Plan: Hemoglobin A1C 5.7 in January d/c metformin (9) Depression: Plan: Continue home escitalopram, bupropion appropriate depression with new dx but denied need for med adjustment at this time (10) Pancytopenia: Plan: * Chemotherapy-induced pancytopenia 76-year-old male who was undergoing chemotherapy for metastatic squamous cell carcinoma. Plan: Code: DNR/DNI CM assisting to arrange hospice at home, possibly tomorrow if able to coordinate Admission and Anticipated Discharge Date Admission Date: April 04, 2022 Subjective evaluated this afternoon unable to reach andrew but ok'd to speak with states they all (both sons and herself) are in agreement to get patient home and need supplies. Contacted CM to assist to arrange and if possible may be able to get him home tomorrow. raya states andrew when to home yesterday to make arrangements in advance and they are all on the same page. will await return call from andrew as well but asked raya for him to call us. Scott sitting upright in bed, no acute distress. Eating/drinking alright. No pain, nausea, cp, sob, dysuria or diarrhea reported. Knows he is in the hospital and with cancer and reporting continued fatigue, appropriately depressed given situation but hopeful to be able to spend as much time with family as possible. questions/concerns addressed at this time. Review of Systems Review of Systems: All systems reviewed & are unremarkable except as noted in HPI & below Physical Exam Physical Exam: General: WD, cachectic, frail elderly male resting in room, sitting up in bed watching TV Resp: CTAb, diminished with poor effort but no w/c, 97% CV: RRR, no m/r/g, edema GI: +BS soft, nontender MSK/Neuro: moves all extremities, +clonus, pulses palpable, follows commands and answering questions appropriately Psych: alert to person/place/year, intermittent forgetfullness but easily reoriented, depressed/withdrawn Skin: lesions to buttocks/back, R shoulder (see wound imaging, improved), no dr gusman Results & Data Results & Data ([facility]) Vital Signs (Past 12 Hours) Vital Signs Temp Pulse Resp BP Pulse Ox 04/17/22 07:28 36.8 C 64 16 152/73 H 97 04/17/22 00:21 85 16 132/67 98 PG Care Time/CCT Total # of Minutes Spent Total Time Spent with Patient: Total time spent is greater than 50% in coordination of care (as documented) at patient's floor/unit and/or counseling patient: Coding Level of Care Code 41932 Subseq Hosp Care Lvl 1 Diagnoses Generalized weakness R53.1 Brain lesion G93.9 Altered mental state R41.82 Frequent falls R29.6 Hypertension I10 Hyperlipidemia E78.5 Metastatic squamous cell carcinoma C79.9 Diabetes E11.9 Depression F32.A Pancytopenia D61.818
[2022-04-17] MEDS: buPROPion XL 150 MG TABCR PO SCH (09:27)
[2022-04-17] MEDS: NICOTINE 21 MG/24 HR TDSY TD SCH (09:27)
[2022-04-17] MEDS: ESCITALOPRAM OXALATE 10 MG TAB PO SCH (09:27)
[2022-04-17] MEDS: POLYETHYLENE (MIRALAX) 17 GM PACK PO SCH (09:27)
--- NOTE | 2022-04-18 07:43 | Hospitalist Progress Note ---
Date of Service April 18, 2022 Assessment & Plan (1) Generalized weakness: Plan: Generalized weakness in 76yo male with a history of HTN, HLD, CAD, CKD3, and metastatic squamous cell carcinoma. 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 Numerous enhancing metastatic lesions throughout the brain and cerebellum. 2. Cerebral cortical atrophy and remote small vessel disease are also present. Palliative, rad/onc consulted for RT -- patient does NOT want any RT at this time Patient does NOT want any further Lovenox --> as moving to comfort can d/c knowing risks CM following, son visited 04/16 but unable to connect. Voicemail left. Multiple attempted calls, discussed with Flaca in evening has been in contact w Cyril and working/busy/unable to take calls and has been updated and not needing further calls at this time reportedly Discussed with CM needing to confirm able to assist getting in home if transport but able given prior reports in days past with 27-29 steps Equipment delivered today Per Flaca, would be comfortable with discharging patient tomorrow as she was running errands/groceries and getting the house in order for Scott to come home If transport able to be arranged will plan on d/c tomorrow afternoon (2) Brain lesion: Plan: suspected cause for repeated falls/weakness MRI january without lesions, as noted was done without contrast Rad/onc consulted as above, no plans for RT per patient wishes (3) Altered mental state: Plan: LFTs rising concerning for aggressive met cancer Ongoing concern from his and MRI as above now w/ evidence for brain mets Planning for transition to hospice at d/c (4) Frequent falls: Plan: Patient has been having frequent falls. Suspected secondary to his chemotherapy, advanced cancer, deconditioning. now with new mets to brain (5) Hypertension: Plan: no meds, BP stable (6) Hyperlipidemia: Plan: Prior LDL 39 statin d/c, hospice at [place] (7) Metastatic squamous cell carcinoma: Plan: as above (8) Diabetes: Plan: Hemoglobin A1C 5.7 in January, no need for metformin and BSGs stable earlier in stay (9) Depression: Plan: Continued home escitalopram, bupropion appropriate depression with new dx but denied need for med adjustment at this time (10) Pancytopenia: Plan: * Chemotherapy-induced pancytopenia 76-year-old male who was undergoing chemotherapy for metastatic squamous cell carcinoma. Plan: working on arranging discharge, hopefully tomorrow Admission and Anticipated Discharge Date Admission Date: April 04, 2022 Supervising Physician Co-Signing Physician Notes PA Supervision Note: I did not personally see or examine the patient today, but I verified all kiran points of MASTER Cabrera's assessment and plan with the following exceptions/additions: None Subjective eval this morning, no acute events still awaiting call back from son regarding timing to get patient home. eating/drinking, no pain/nausea reported. depressed but wanting to go home Review of Systems Review of Systems: All systems reviewed & are unremarkable except as noted in HPI & below Physical Exam Physical Exam: General: WD, cachectic, fatigued appearing, frail elderly male resting in room, sleeping upon entry Resp: CTAb, diminished with poor effort but no w/c, 97% CV: RRR, no m/r/g, edema GI: +BS soft, nontender MSK/Neuro: moves all extremities, +clonus, pulses palpable, follows commands and answering questions appropriately Psych: alert to person/place/year, intermittent forgetfulness but easily reoriented, depressed/withdrawn Skin: lesions to buttocks/back, R shoulder (see wound imaging, improved), no drainage Results & Data Results & Data ([facility]) Vital Signs (Past 12 Hours) Vital Signs Temp Pulse Resp BP Pulse Ox 04/18/22 07:20 37 C 76 18 129/72 98 04/17/22 22:45 37 C 71 18 105/63 96 PG Care Time/CCT Total # of Minutes Spent Total Time Spent with Patient: Total time spent is greater than 50% in coordination of care (as documented) at patient's floor/unit and/or counseling patient: Coding Level of Care Code 71882 Subseq Hosp Care Lvl 1 Diagnoses Generalized weakness R53.1 Brain lesion G93.9 Altered mental state R41.82 Frequent falls R29.6 Hypertension I10 Hyperlipidemia E78.5 Metastatic squamous cell carcinoma C79.9 Diabetes E11.9 Depression F32.A Pancytopenia D61.812
[2022-04-18] MEDS: buPROPion XL 150 MG TABCR PO SCH (09:05)
[2022-04-18] MEDS: ESCITALOPRAM OXALATE 10 MG TAB PO SCH (09:05)
[2022-04-18] MEDS: NICOTINE 21 MG/24 HR TDSY TD SCH (09:05)
[2022-04-18] MEDS: POLYETHYLENE (MIRALAX) 17 GM PACK PO SCH (09:06)
--- NOTE | 2022-04-19 08:26 | Discharge Summary ---
Date of Service April 19, 2022 Admission HPI Per Admitting Provider This is a pleasant 76 yo male with a history of HTN, HLD, CAD, CKD3, metastatic squamous cell carcinoma and recent hospital stay for deconditioning present to the hospital for generalized weakness. Patient recently fell down 8 steps on 04/02/22. His is at bedside. She states injured the right side of his face and hsi right shoulder. He has been receiving chemotherapy for the past few weeks, but did not receive it this past thursday as per patient. His is concerned that he is getting too weak to be at home. She is interested in hospice, however, the patient remains unsure. Patient though continues to have pain in his right shoulder. Patient used to follow with Dr. Mancia. Discharge Data Allergies Allergy/AdvReac Type Severity Reaction Status Date / Time No Known Drug Allergies Allergy Unknown Verified 04/02/22 07:08 Consultations 04/04/22 15:53 Consult Hematology Routine 04/04/22 17:07 ED Decision to Admit Stat 04/06/22 10:18 Consult Palliative Care Routine 04/15/22 07:00 Consult Radiation Oncology Routine Ordered Studies 04/04/22 13:42 CT head/brain wo con Stat 04/08/22 13:18 CT abd pelvis IV con only Routine CT chest diagnostic w con Routine 04/13/22 17:50 MR brain wo/w con Routine Hospital Course (1) Generalized weakness: Generalized weakness in 76yo male with a history of HTN, HLD, CAD, CKD3, and metastatic squamous cell carcinoma. 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 Numerous enhancing metastatic lesions throughout the brain and cerebellum. 2. Cerebral cortical atrophy and remote small vessel disease are also present. Palliative, rad/onc consulted for RT -- patient does NOT want any RT at this time Patient does NOT want any further Lovenox --> as moving to comfort can d/c knowing risks CM following, son visited 04/16 but unable to connect. Voicemail left. Multiple attempted calls, discussed with Flaca in evening has been in contact w Cyril and working/busy/unable to take calls and has been updated and not needing further calls at this time reportedly Discussed with CM needing to confirm able to assist getting in home if transport but able given prior reports in days past with 27-29 steps Equipment delivered today Per Flaca, would be comfortable with discharging patient tomorrow as she was running errands/groceries and getting the house in order for Scott to come home If transport able to be arranged will plan on d/c tomorrow afternoon (2) Brain lesion: suspected cause for repeated falls/weakness MRI january without lesions, as noted was done without contrast Rad/onc consulted as above, no plans for RT per patient wishes (3) Altered mental state: LFTs rising concerning for aggressive met cancer Ongoing concern from his and MRI as above now w/ evidence for brain mets Planning for transition to hospice at d/c (4) Frequent falls: Patient has been having frequent falls. Suspected secondary to his chemotherapy, advanced cancer, deconditioning. now with new mets to brain (5) Hypertension: no meds, BP stable (6) Hyperlipidemia: Prior LDL 39 statin d/c, [place] (7) Metastatic squamous cell carcinoma: as above (8) Diabetes: Hemoglobin A1C 5.7 in January, no need for metformin and BSGs stable earlier in stay (9) Depression: Continued home escitalopram, bupropion appropriate depression with new dx but denied need for med adjustment at this time (10) Pancytopenia: * Chemotherapy-induced pancytopenia 76-year-old male who was undergoing chemotherapy for metastatic squamous cell carcinoma. working on arranging discharge, hopefully tomorrow Discharge Plan Discharge Items Reason For Visit: END STAGE CANCER/ METASTATIC SQUAMOUS BINTAIV ONLY Follow-up/Referrals: Emily Ceja MD [Primary Care Provider] - Medications and DC Order Prescriptions: No Action oxycodone 5 mg tablet 5 mg PO .Q4-6H PRN (Reason: Pain) RF: 0 ondansetron HCl 8 mg tablet 8 mg PO Q8H PRN (Reason: Nausea) RF: 0 loperamide [Imodium A-D] 2 mg capsule 2 mg PO Q6H PRN (Reason: Diarrhea) RF: 0 escitalopram oxalate 10 mg tablet 10 mg PO DAILY Qty: 30 RF: 5 midodrine 10 mg tablet 10 mg PO TID Qty: 90 RF: 5 enalapril maleate [Vasotec] 5 mg tablet 5 mg PO DAILY Qty: 90 RF: 1 (DME) lancing device with lancets [Accu-Chek Soft Dev Lancets] Kit See Rx Instructions .Route Qty: 1 RF: 0 bupropion HCl 150 mg tablet extended release 24 hr 150 mg PO QAM RF: 0 atorvastatin 80 mg tablet 80 mg PO DAILY RF: 0 metformin 1,000 mg tablet 1,000 mg PO DAILY RF: 0 Admission Data Admit Date/Time: 04/04/22 14:57 Attending Provider: Pattie Schroeder Admit Provider: Arden Viramontes Primary Care Provider: Emily Ceja Other Providers: Janneth Stephens ; Ashlee Medrano ; Wolfgang Mckinney ; Freddy Bui ; [facility] Coding Diagnoses Generalized weakness R53.1 Brain lesion G93.9 Altered mental state R41.82 Frequent falls R29.6 Hypertension I10 Hyperlipidemia E78.5 Metastatic squamous cell carcinoma C79.9 Diabetes E11.9 Depression F32.A Pancytopenia D61.818
--- NOTE | 2022-04-19 08:56 | Hospitalist Progress Note ---
Date of Service April 19, 2022 Assessment & Plan (1) Generalized weakness: Plan: Generalized weakness in 76yo male with a history of HTN, HLD, CAD, CKD3, and metastatic squamous cell carcinoma. 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 Numerous enhancing metastatic lesions throughout the brain and cerebellum. 2. Cerebral cortical atrophy and remote small vessel disease are also present. Palliative, rad/onc consulted for RT -- patient does NOT want any RT at this time Patient does NOT want any further Lovenox --> as moving to comfort can d/c knowing risks CM following, son visited 04/16 but unable to connect. Voicemail left. Multiple attempted calls, discussed with Raya in evening has been in contact w Cyril and working/busy/unable to take calls and has been updated and not needing further calls at this time reportedly Discussed with CM needing to confirm able to assist getting in home if transport but able given prior reports in days past with 27-29 steps Equipment delivered today Per Raya, would be comfortable with discharging patient tomorrow as she was running errands/groceries and getting the house in order for Scott to come home If transport able to be arranged will plan on d/c tomorrow afternoon -- [facility]SPORT ISSUE 04/19 WITH [employer] HOWEVER CM WORKING ON THIS. IF ABLE WILL TRANSPORT TODAY, IF NOT ATTEMPTING AGAIN TOMORROW To update family of plan (2) Brain lesion: Plan: suspected cause for repeated falls/weakness MRI january without lesions, as noted was done without contrast Rad/onc consulted as above, no plans for RT per patient wishes (3) Altered mental state: Plan: LFTs rising concerning for aggressive met cancer Ongoing concern from his and MRI as above now w/ evidence for brain mets Planning for transition to hospice at d/c (4) Frequent falls: Plan: Patient has been having frequent falls. Suspected secondary to his chemotherapy, advanced cancer, deconditioning. now with new mets to brain (5) Hypertension: Plan: no meds, BP stable (6) Hyperlipidemia: Plan: Prior LDL 39 statin d/c, hospice [place] (7) Metastatic squamous cell carcinoma: Plan: as above (8) Diabetes: Plan: Hemoglobin A1C 5.7 in January, no need for metformin and BSGs stable earlier in stay (9) Depression: Plan: Continued home escitalopram, bupropion appropriate depression with new dx but denied need for med adjustment at this time (10) Pancytopenia: Plan: * Chemotherapy-induced pancytopenia 76-year-old male who was undergoing chemotherapy for metastatic squamous cell carcinoma. Plan: d/c w/ hospice when transport able to be arranged Admission and Anticipated Discharge Date Admission Date: April 04, 2022 Supervising Physician Co-Signing Physician Notes PA Supervision Note: I did not personally see or examine the patient today, but I verified all kiran points of MASTER Cabrera's assessment and plan with the following exceptions/additions: None Subjective patient eval this morning resting comfortable in bed, awakens easily to name, conversive no acute distress or voiced need for anything discussed transport issue but working on this and if unable to transport today will plan for tomorrow hopefully. asked how long him and raya have been together as not , he said "long time" but not answer # of years, and rather said "when you get old you get close with people". Alert to person/place, intermittent confusion on time and thought it was earlier in the week. Questions/concerns addressed. Review of Systems Review of Systems: All systems reviewed & are unremarkable except as noted in HPI & below Physical Exam Physical Exam: General: WD, cachectic, fatigued appearing, frail elderly male resting in room, sleeping upon entry, easily awoken Resp: CTAb, diminished with poor effort but no w/c, 97% CV: RRR, no m/r/g, edema GI: +BS soft, nontender MSK/Neuro: moves all extremities, +clonus, pulses palpable, follows commands and answering questions appropriately Psych: alert to person/place/year, intermittent forgetfulness but easily r eoriented, depressed/withdrawn Skin: lesions to buttocks/back, R shoulder (see wound imaging, improved), no drainage Results & Data Results & Data ([facility]) Vital Signs (Past 12 Hours) Vital Signs Temp Pulse Resp BP Pulse Ox 04/19/22 06:22 36.6 C 70 18 149/68 H 98 06/17/22 23:01 36.7 C 81 18 147/74 H 100 PG Care Time/CCT Total # of Minutes Spent Total Time Spent with Patient: Total time spent is greater than 50% in coordination of care (as documented) at patient's floor/unit and/or counseling patient: Coding Level of Care Code 83560 Subseq Hosp Care Lvl 1 Diagnoses Generalized weakness R53.1 Brain lesion G93.9 Altered mental state R41.82 Frequent falls R29.6 Hypertension I10 Hyperlipidemia E78.5 Metastatic squamous cell carcinoma C79.9 Diabetes E11.9 Depression F32.A Pancytopenia D61.818
[2022-04-19] MEDS: NICOTINE 21 MG/24 HR TDSY TD SCH (09:09)
[2022-04-19] MEDS: buPROPion XL 150 MG TABCR PO SCH (09:09)
[2022-04-19] MEDS: ESCITALOPRAM OXALATE 10 MG TAB PO SCH (09:09)
[2022-04-19] MEDS: POLYETHYLENE (MIRALAX) 17 GM PACK PO SCH (09:11)
--- NOTE | 2022-04-20 07:53 | Hospitalist Progress Note ---
Date of Service April 20, 2022 Assessment & Plan (1) Generalized weakness: Plan: Generalized weakness in 76yo male with a history of HTN, HLD, CAD, CKD3, and metastatic squamous cell carcinoma. 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 Numerous enhancing metastatic lesions throughout the brain and cerebellum. 2. Cerebral cortical atrophy and remote small vessel disease are also present. Palliative, rad/onc consulted for RT -- patient does NOT want any RT at this time Patient does NOT want any further Lovenox --> as moving to comfort can d/c knowing risks Discussed with CM needing to confirm able to assist getting in home if transport but able given prior reports in days past with 27-29 steps Equipment delivered Thursday TRANSPORT ISSUE 04/19 WITH [employer] HOWEVER CM WORKING ON THIS. IF ABLE WILL TRANSPORT TODAY, IF NOT ATTEMPTING AGAIN TOMORROW 04/20 no transport due to staffing --> CONFIRMED WITH OUR MED[facility] FOR D/C 10:30AM 04/21. FAMILY AWARE AND UPDATED AT BEDSIDE (2) Brain lesion: Plan: suspected cause for repeated falls/weakness MRI january without lesions, as noted was done without contrast Rad/onc consulted as above, no plans for RT per patient wishes (3) Altered mental state: Plan: LFTs rising concerning for aggressive met cancer Ongoing concern from his and MRI as above now w/ evidence for brain mets Planning for transition to hospice at d/c (4) Frequent falls: Plan: Patient has been having frequent falls. Suspected secondary to his chemotherapy, advanced cancer, deconditioning. now with new mets to brain (5) Hypertension: Plan: no meds, BP stable (6) Hyperlipidemia: Plan: Prior LDL 39 statin d/c, hospice at [place] (7) Metastatic squamous cell carcinoma: Plan: as above (8) Diabetes: Plan: Hemoglobin A1C 5.7 in January, no need for metformin and BSGs stable earlier in stay (9) Depression: Plan: Continued home escitalopram, bupropion appropriate depression with new dx but denied need for med adjustment at this time (10) Pancytopenia: Plan: * Chemotherapy-induced pancytopenia 76-year-old male who was undergoing chemotherapy for metastatic squamous cell carcinoma. Plan: D/C ON HOSPICE IN AM 10:30 AM, TRANSPORT ARRANGED Admission and Anticipated Discharge Date Admission Date: April 04, 2022 Supervising Physician Co-Signing Physician Notes MASTER Supervision Note: I did not personally see or examine the patient today, but I verified all kiran points of MASTER Cabrera's assessment and plan with the following exceptions/additions: None Subjective Patient without acute event, no new issues. Transport continuing to be an issue, arranged for tomorrow AM 10:30. Review of Systems Review of Systems: All systems reviewed & are unremarkable except as noted in HPI & below Physical Exam Physical Exam: General: WD, cachectic, fatigued appearing, frail elderly male resting in room, resting, no acute distress, Flaca at bedside Resp: CTAb, diminished, poor effort but no w/c, on room air CV: RRR, no m/r/g, edema GI: +BS soft, nontender MSK/Neuro: moves all extremities, +clonus, pulses palpable, follows commands and answering questions appropriately, ambulating to bathroom with walker Psych: alert to person/place/year, intermittent forgetfulness but easily reoriented, depressed/withdrawn, Skin: lesions to buttocks/back, R shoulder (see wound imaging, improved), no drainage Results & Data Results & Data ([facility]) Vital Signs (Past 12 Hours) Vital Signs Temp Pulse Resp BP Pulse Ox 04/20/22 07:46 36.5 C 76 18 130/65 91 04/19/22 23:25 36.8 C 83 18 109/63 97 PG Care Time/CCT Total # of Minutes Spent Total Time Spent with Patient: Total time spent is greater than 50% in coordination of care (as documented) at patient's floor/unit and/or counseling patient: Coding Level of Care Code 95667 Subseq Hosp Care Lvl 1 Diagnoses Generalized weakness R53.1 Brain lesion G93.9 Altered mental state R41.82 Frequent falls R29.6 Hypertension I10 Hyperlipidemia E78.5 Metastatic squamous cell carcinoma C79.9 Diabetes E11.9 Depression F32.A Pancytopenia D61.818
[2022-04-20] MEDS: buPROPion XL 150 MG TABCR PO SCH (08:13)
[2022-04-20] MEDS: ESCITALOPRAM OXALATE 10 MG TAB PO SCH (08:13)
[2022-04-20] MEDS: NICOTINE 21 MG/24 HR TDSY TD SCH (08:13)
[2022-04-20] MEDS: POLYETHYLENE (MIRALAX) 17 GM PACK PO SCH (08:16)
[2022-04-20] MEDS: CALCIUM CARBONATE 500 MG CHEWABLE TAB PO PRN ×2 (16:23→21:07)
[2022-04-20 23:02] VITALS: O2SAT 98
[2022-04-21 06:52] VITALS: PULSE 73; TEMP 97.5
[2022-04-21] MEDS: POLYETHYLENE (MIRALAX) 17 GM PACK PO SCH (09:40)
[2022-04-21] MEDS: ESCITALOPRAM OXALATE 10 MG TAB PO SCH (09:41)
[2022-04-21] MEDS: buPROPion XL 150 MG TABCR PO SCH (09:41)
[2022-04-21] MEDS: NICOTINE 21 MG/24 HR TDSY TD SCH (09:41)
[2022-04-21 09:55] VITALS: BP 108/67
--- NOTE | 2022-04-21 10:07 | Discharge Summary ---
Date of Service April 21, 2022 Admission HPI Per Admitting Provider This is a pleasant 76 yo male with a history of HTN, HLD, CAD, CKD3, metastatic squamous cell carcinoma and recent hospital stay for deconditioning present to the hospital for generalized weakness. Patient recently fell down 8 steps on 04/02/22. His is at bedside. She states injured the right side of his face and hsi right shoulder. He has been receiving chemotherapy for the past few weeks, but did not receive it this past thursday as per patient. His is concerned that he is getting too weak to be at home. She is interested in hospice, however, the patient remains unsure. Patient though continues to have pain in his right shoulder. Patient used to follow with Dr. Mancia. Principal Diagnosis 1. Squamous Cell CA with brain metastasis 2. Debility 3. Frequent falls Discharge Exam GENERAL: Well-developed, well-nourished 76 yo WM. NAD. LUNGS: Clear to auscultation bilaterally. No W/R/R. CARDIOVASCULAR: Regular rate and rhythm. ABDOMEN: Soft, non-tender and non-distended. BS normoactive x 4 quad. EXTREMITIES: No edema. Non-tender. Peripheral pulses +2/4. NEUROLOGIC: A&O x3. Nonfocal PSYCHIATRIC: Cooperative. Appropriate mood and affect. SKIN: Warm, dry, intact. No rashes or lesions. Discharge Data Allergies Allergy/AdvReac Type Severity Reaction Status Date / Time No Known Drug Allergies Allergy Unknown Verified 04/02/22 07:08 Consultations 04/04/22 15:53 Consult Hematology Routine 04/04/22 17:07 ED Decision to Admit Stat 04/06/22 10:18 Consult Palliative Care Routine 04/15/22 07:00 Consult Radiation Oncology Routine Ordered Studies Chest X-Ray 04/04/22 12:10 SINGLE VIEW CHEST CLINICAL HISTORY: Generalized weakness. FINDINGS: 2 AP, portable, upright chest radiographs are compared to study dated 02/27/2022. Correlation is made with chest CT dated 08/30/2020. The examination is degraded by portable technique and apical lordotic positioning. A left internal jugular central venous infusion port is unchanged in position. The heart is mildly enlarged noting atherosclerotic calcification of the thoracic aorta. The pulmonary vasculature is noncongested. Chronic interstitial thickening is similar to previous. There is bibasilar scarring/atelectasis. The lungs and pleural spaces are otherwise clear. No pneumothorax is seen. The sk eletal structures are osteopenic. The bony thorax is grossly intact. IMPRESSION: Cardiomegaly with no acute cardiopulmonary abnormality. ACT 112: Negative or not required by law. Electronically signed by: Alexis Strong M.D. 04/04/2022 1:[address] 04/04/22 13:42 CT OF THE HEAD WITHOUT CONTRAST CLINICAL HISTORY: fall COMPARISON STUDY: MRI of the brain February 23, 2022. Head CT April 02, 2022. CT DOSE: 1228.53 mGy.cm TECHNIQUE: Helical axial images of the head were obtained without IV contrast. Automated exposure control was utilized for the study. A dose lowering technique was utilized adhering to the principles of ALARA. FINDINGS: No acute intracranial hemorrhage, midline shift or mass effect is present. The ventricular system is stable. White matter hypodensities are unchanged and suggest small vessel disease. 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 The basal cisterns are patent. No extra-axial collections are present. There are no findings to suggest acute dural sinus thrombosis or acute territorial infarct. No significant calvarial abnormalities are present. Visualized portions of the sinuses and mastoid air cells are clear. Small left forehead contusion is present. There is no calvarial fracture. IMPRESSION: 1. No acute intracranial findings. No change in appearance of the brain. 2. Left forehead contusion. No calvarial fracture. ACT 112: Negative or not required by law. Electronically signed by: Juancho Gomez M.D. 04/04/2022 2:24 PM Shoulder X-Ray 04/05/22 09:03 XR shoulder RT min 2V routine HISTORY: 76 years-old Male right shoulder pain Acute right shoulder pain status post fall COMPARISON: 04/02/2022 TECHNIQUE: 3 views of the right shoulder FINDINGS: Mild glenohumeral and AC joint osteophyte is redemonstrated along with mild rotator cuff calcific tendinosis. No acute fracture or dislocation. Left IJ Ozvtbe-s-Ggqc catheter. IMPRESSION: No acute fracture or dislocation. ACT 112: Negative or not required by law. The above report was generated using voice recognition software. It may contain grammatical, syntax or spelling errors. Electronically signed by: Mando Smallwood M.D. 04/05/2022 11:04 AM Abdomen/Pelvis CT 04/08/22 13:18 CT abd pelvis IV con only CLINICAL HISTORY: reassess cancer . Reported squamous cell carcinoma skin. COMPARISON STUDY: No previous studies for comparison. CT DOSE: TECHNIQUE: Standard CT of the Abdomen and Pelvis was performed with IV contrast. A dose lowering technique was utilized adhering to the principles of ALARA. Contrast Volume: Optiray 320, 94 ml. The patient did not receive oral contrast. FINDINGS: Abdominal cavity: There is no evidence for abdominal mass, adenopathy or ascites. Liver: There is slightly heterogeneous enhancement of the liver. There are multiple ill-defined low-attenuation lesions seen throughout the right lobe of the liver ranging in size from 6 to 14 mm. These findings are most characteristic of metastatic disease. Spleen: There is homogeneous attenuation of the splenic parenchyma. There is no enhancing mass lesion. Pancreas: There is a 7 mm sharply defined cyst within the mid body of the pancreas. There is homogeneous attenuation of the remaining pancreatic parenchyma. There is no evidence for mass lesion or peripancreatic fluid collection. Gall Bladder: The gallbladder is distended with cholelithiasis. There is no definite CT evidence for acute cholecystitis. Adrenal glands: The adrenal glands are normal in size and attenuation. There is no evidence for enhancing mass lesion. Kidneys: There is homogeneous attenuation of the renal parenchyma bilaterally. There is no evidence for renal calculus or hydronephrosis. There is no evidence for enhancing mass. Bowel: There is a small hiatal hernia. The bowel loops are normally placed within the abdomen and pelvis without evidence for dilatation or obstruction. There is no evidence for mass lesion. There are no inflammatory changes present. There is no evidence for free air. Bladder: The bladder is within normal limits with no evidence for focal mass, calculus or diverticulum. : There is no evidence for pelvic mass or adenopathy. There is no evidence for pelvic ascites. Vasculature: There is no evidence for aneurysmal dilatation of the abdominal aorta. Atherosclerotic calcification is present. Osseous structures: There is no acute osseous pathology. Degenerative changes are present within the spine. IMPRESSION: 1. Numerous ill-defined low-attenuation lesions within the liver most characteristic of metastatic disease. 2. Small hiatal hernia. 3. Cholelithiasis. 4. Additional nonacute findings are delineated above. ACT 112: Negative or not required by law. Electronically signed by: Landry Thomas M.D. 04/08/2022 4:[address] 04/08/22 13:18 CT chest diagnostic w con CLINICAL HISTORY: reassess cancer. Squamous cell carcinoma of the skin. TECHNIQUE: Multidetector row helical CT of the chest was performed with intravenous contrast. Coronal and sagittal reformations were obtained. Automated dose lowering techniques and/or adjustment according to patient size were utilized for this exam. CT DOSE: 743.08 mGy.cm Comparison: Comparison is made to CT radiation planning 11/25/[address] chest 08/30/2020 FINDINGS: Lungs and pleura: Atelectasis versus scarring is seen in the dependent portions of the lungs. Exam is limited by patient motion however there is partial visualization of tiny pulmonary nodules including the followin mm nodule in the right upper lobe (series 6 image 85), stable 3 mm nodule in the right upper lobe (image 86), not seen in prior exam. 5 mm nodule in the lingula (image 146), not seen on prior exam 3 mm pleural-based nodule in the right lower lobe (image 200), new 9 mm pleural-based nodule in the right lower lobe (image 217), new Heart and pericardium: Heart size is normal. No pericardial effusion. Vessels: Severe atherosclerotic changes in the aorta and coronary arteries. Mediastinum and kimberli: Esophageal thickening is noted. Chest wall and lower neck: Unremarkable. Abdomen: For findings below the diaphragm, please refer to CT of the abdomen dated the same. Bones: Degenerative changes in the thoracic spine. IMPRESSION: Multiple small pulmonary nodules as seen above. Although evaluation is limited by patient motion, continued follow-up is recommended, a CT chest can be perfo rmed in 6 months to assess for stability. ACT 112: Negative or not required by law. Electronically signed by: Julián Faria M.D. 04/08/2022 4:11 PM Chest X-Ray 04/11/22 11:49 XR chest 1V portable HISTORY: 76 years-old Male increased confusion ?PNA acute shortness breath in a patient with history of pneumonia COMPARISON: Chest CT 04/08/2022, chest radiographs 04/04/2022, PET CT 02/05/2022. TECHNIQUE: Portable AP view of the chest FINDINGS: The cardiac silhouette is enlarged. Atherosclerosis of the aorta. Left IJ Fiadmf-a-Dhow catheter distal tip is again noted within the expected location of the SVC. No pneumothorax, pleural effusion or overt pulmonary edema. Bibasilar predominant reticular nodular opacities are redemonstrated. IMPRESSION: 1. Bibasilar predominant reticular nodular opacities are redemonstrated, progressed from the 02/05/2022 exam. An infectious or inflammatory pneumonitis is favored. 2. Discrete subcentimeter pulmonary nodules are better visualized on the chest CT study from 04/08/2022. 3. Cardiomegaly without overt pulmonary edema. ACT 112: Negative or not required by law. The above report was generated using voice recognition software. It may contain grammatical, syntax or spelling errors. Electronically signed by: Mando Smallwood M.D. 04/11/2022 12:13 PM Brain MRI 04/13/22 17:50 MR brain wo/w con CLINICAL HISTORY: acute confusion, known SCC. COMPARISON STUDY: 02/23/2022 TECHNIQUE: Multiplanar multisequence images of the brain were performed before and after Gadavist, 8.2 mL of IV contrast. Diffusion weighted imaging and ADC mapping was also performed. FINDINGS: Extra-axial space: There is no evidence for a subdural hematoma, There are no extra-axial fluid collections. Ventricles and cisterns: The ventricles are mildly dilated bilaterally. There is no evidence for midline shift or mass effect. Parenchyma: On noncontrast images, there is no evidence for an acute hemorrhage or infarct. No acute diffusion abnormalities are noted on diffusion weighted imaging or ADC mapping. There is normal cook-white differentiation. There is mild cerebral cortical atrophy present. There is bright signal seen on FLAIR weighted sequences within the centrum semiovale and periventricular white matter characteristic of remote small vessel disease. The sulci and gyri appear normal without effacement. The midline structures are unremarkable. The posterior fossa structures appear normal. On postcontrast images, there are numerous enhancing mass lesion seen throughout both cerebral hemispheres are present in the presence of metastatic disease. Enhancing lesions are also present within the cerebellar hemispheres bilaterally. Osseous structures: The paranasal sinuses are well aerated. The mastoid air cells are well aerated. Soft tissues: No focal soft tissue abnormalities are identified. IMPRESSION: 1. Numerous enhancing metastatic lesions throughout the brain and cerebellum. 2. Cerebral cortical atrophy and remote small vessel disease are also present. ACT 112: Negative or not required by law. Electronically signed by: Landry Thomas M.D. 04/13/2022 8:42 PM Hospital Course (1) Generalized weakness: Generalized weakness in 76yo male with a history of HTN, HLD, CAD, CKD3, and metastatic squamous cell carcinoma. 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 Numerous enhancing metastatic lesions throughout the brain and cerebellum. 2. Cerebral cortical atrophy and remote small vessel disease are also present. Palliative, rad/onc consulted for RT --> patient does NOT want any RT at this time Patient does NOT want any further Lovenox --> as moving to comfort can d/c knowing risks Discussed with CM needing to confirm able to assist getting in home if transport but able given prior reports in days past with 27-29 steps Equipment delivered Thursday 04/19 and 04/20 no transport due to staffing --> CONFIRMED D/C 04/21. FAMILY AWARE AND UPDATED AT BEDSIDE (2) Brain lesion: suspected cause for repeated falls/weakness MRI january without lesions, as noted was done without contrast Rad/onc consulted as above, no plans for RT per patient wishes (3) Altered mental state: LFTs rising concerning for aggressive met cancer Ongoing concern from his and MRI as above now w/ evidence for brain mets Planning for transition to hospice at d/c (4) Frequent falls: Patient has been having frequent falls. Suspected secondary to his chemotherapy, advanced cancer, deconditioning. now with new mets to brain (5) Hypertension: no meds, BP stable (6) Hyperlipidemia: Prior LDL 39 statin d/c, hospice at [place] (7) Metastatic squamous cell carcinoma: as above (8) Diabetes: Hemoglobin A1C 5.7 in January, no need for metformin and BSGs stable earlier in stay (9) Depression: Continued home escitalopram, bupropion appropriate depression with new dx but denied need for med adjustment at this time (10) Pancytopenia: Chemotherapy-induced pancytopenia Patient has decided to transition to comfort measures and requests to return home with hospice in the company/care of his family. Transport arranged. Hospice will follow patient upon his arrival at home. Equipment delivered. Plan has been d/w Dr. Viramontes who has also seen and evaluated this patient prior to discharge and is in agreement with the aforementioned. Total Time Total Time Spent Total Time Spent (In Minutes): >30 minutes Discharge Plan Discharge Items Patient Disposition: Hospice - Home Reason For Visit: END STAGE CANCER/ METASTATIC SQUAMOUS BINTAIV ONLY Discharge Diagnosis: Metastatic Squamous Cell Carcinoma to the Brain Goals: You have been hospitalized for an acute medical problem. During your stay at [facility], we have made an effort to correct the problem that brought you to the hospital while keeping you as comfortable as possible. Medications were used to bring your condition under control and your discharge instructions will include directions for any medications you should take after leaving the hospital. Please make sure you see your Primary Care Provider as part of your follow up plan. Activity: As commented below Non-emergency contact: Primary Care Provider Call non-emergency contact if: you have any medication questions Follow-up/Referrals: Emily Ceja MD [Primary Care Provider] - Diet: Regular Addtl Attending Provider Instructions: You have been hospitalized and unfortunately found to have evidence for metastatic cancer to the brain, which explains recent falls/worsening weakness over the past severeal months. Palliative medicine was consulted and multiple discussions with radiology and decision not to undergo any palliative radiation at discharge and arranged for hospice at discharge. They will provide additional resources, and can assist with respite care. They will also assist with any medications needed as time progresses if you need anything for pain, anxiety, or other symptoms. It has been a pleasure being a part of the medical team providing for you while you have been in the hospital. Pending Studies at Discharge: No Stand-Alone Forms: [facility] Medications and DC Order Prescriptions: Continued oxycodone 5 mg tablet 5 mg PO .Q4-6H PRN (Reason: Pain) RF: 0 ondansetron HCl 8 mg tablet 8 mg PO Q8H PRN (Reason: Nausea) RF: 0 loperamide [Imodium A-D] 2 mg capsule 2 mg PO Q6H PRN (Reason: Diarrhea) RF: 0 escitalopram oxalate 10 mg tablet 10 mg PO DAILY Qty: 30 RF: 5 (DME) lancing device with lancets [Accu-Chek Soft Dev Lancets] Kit See Rx Instructions .Route Qty: 1 RF: 0 bupropion HCl 150 mg tablet extended release 24 hr 150 mg PO QAM RF: 0 Discontinued midodrine 10 mg tablet 10 mg PO TID Qty: 90 RF: 5 enalapril maleate [Vasotec] 5 mg tablet 5 mg PO DAILY Qty: 90 RF: 1 atorvastatin 80 mg tablet 80 mg PO DAILY RF: 0 metformin 1,000 mg tablet 1,000 mg PO DAILY RF: 0 Discharge Orders: Discharge Order (Routine); Ordered 04/21/22 Ordered By: Laura Damon Admission Data Admit Date/Time: 04/04/22 14:57 Attending Provider: Ardne Viramontes Admit Provider: Arden Viramontes Primary Care Provider: Emily Ceja Other Providers: Janneth Stephens ; Ashlee Medrano ; Wolfgang Mckinney ; Freddy Bui ; [facility] Other Interventions: Discharge Summary Assessment (RN) Last Done: 04/21/22 09:49 Supervising Physician Co-Signing Physician Notes During face to face encounter, physical exam was performed and hospital stay was discussed. Discussed discharge plan with COCO Damon and patient All of patient's questions were answered. Reviewed above note and agree with it. Due to advanced cancer, will discharge on home hospice. Coding Level of Care Code D/C DAY MANAGEMENT >30 MINS Diagnoses Generalized weakness R53.1 Brain lesion G93.9 Altered mental state R41.82 Frequent falls R29.6 Hypertension I10 Hyperlipidemia E78.5 Metastatic squamous cell carcinoma C79.9 Diabetes E11.9 Depression F32.A Pancytopenia D61.818
== END 2022-04-21 11:37 | disposition hospice, home (50) | DRG 54 ==
LOC: ED 12:00 → SUATTDRO 14:57 → 3E 14:57